=== PATIENT | female | born 1990 | race Caucasian/White ===

== ENCOUNTER 2016-04-26 16:12 | Outpatient (CLI) | payer OTHER ==
[2016-04-26] MEDS ORDERED: HYDROXYZINE PAMOATE 50 MG CAPSULE ONE (16:45)
[2016-04-26] MEDS ORDERED: OXYCODONE-ACETAMINOPHEN 5-325 MG TABLET ONE ×2 (16:45→18:01)
[2016-04-26 17:17] LABS: URINE BARBITURATES SCREEN NEGATIVE; URINE METHADONE SCREEN NEGATIVE; URINE PHENCYCLIDINE SCREEN NEGATIVE
[2016-04-26 17:29] LABS: APPEARANCE,URINE CLEAR; BILIRUBIN,URINE NEGATIVE (NEGATIVE); GLUCOSE, URINE NEGATIVE (NEGATIVE); KETONES,URINE NEGATIVE (NEGATIVE); LEUKOCYTE ESTERASE,URINE MODERATE (NEGATIVE); NITRITE,URINE NEGATIVE (NEGATIVE); PROTEIN,URINE NEGATIVE (NEGATIVE); URINE SPECIFIC GRAVITY 1.004; UROBILINOGEN,URINE NEGATIVE mg/dL (<2.0)
--- NOTE | 2016-04-27 04:46 | L&D Flow Sheet ---
LD Flowsheet Datetime Report Generated by CPN: 04/27/2016 04:45 Datetime: 04/26/2016 19:11 Communication Comments: IV discontinued, monitors removed, kick counts reviewed with patient and patient verablized understanding. (Eden Hansen, RN) Datetime: 04/26/2016 19:05 Communication Comments: Dr. Hansen notified of patient's normal US results, patient complains of pain 2/5 in RLQ. Orders received for patient to be discharged home, to take Tylenol and place heating pad on back and follow up in office later this week (Eden Tyrone, RN) Datetime: 04/26/2016 18:50 NBP Sys/Shelbi/Mean (mmHg): 82 (QS system process) : 43 (QS system process) : 57 (QS system process) Pulse: 84 (QS system process) Datetime: 04/26/2016 18:35 NBP Sys/Shelbi/Mean (mmHg): 81 (QS system process) : 46 (QS system process) : 58 (QS system process) Pulse: 82 (QS system process) Datetime: 04/26/2016 18:30 Monitor Mode: External; Palpation (Eden Tyrone, RN) Frequency (min): none (Eden Tyrone, RN) Resting Tone (Palpate): Relaxed (Eden Tyrone, RN) Monitor Mode: External US (Eden Tyrone, RN) FHR Baseline Rate : 135 (Eden Tyrone, RN) Variability: Moderate 6-25 bpm (Eden Tyorne, RN) Accelerations: 15X15 (Eden Tyrone, RN) Decelerations: None (Eden Tyrone, RN) Datetime: 04/26/2016 18:21 NBP Sys/Shelbi/Mean (mmHg): 85 (QS system process) : 50 (QS system process) : 63 (QS system process) Pulse: 80 (QS system process) Datetime: 04/26/2016 18:20 Patient Position/Activity: Left Extreme; Low Fowlers (Eden Tyrone, RN) Datetime: 04/26/2016 18:19 Communication Comments: US complete, monitors back on (Eden Hansen, RN) Datetime: 04/26/2016 18:04 Communication Comments: Percocet 5/325mg 2 tabs PO x1 now per order (Eden Hansen, RN) Datetime: 04/26/2016 18:00 Communication Comments: patient off monitor for US (Eden Hansen, RN) Communication Comments: Dr. Hansen notified of patient's pain 5/5 in RLQ. Order received for Percocet 5/325 2 tabs PO x1` now (Eden Hansen, RN) Datetime: 04/26/2016 17:54 IV/Blood Work: IV Started; IV Bolus Started (Eden Tyrone, RN) Datetime: 04/26/2016 17:51 Communication Comments: patient back in bed, monitors off for ultrasound at bedside (Eden Tyrone, RN) Datetime: 04/26/2016 17:42 Communication Comments: patient tearful, states pain is 5/5. Dr. Tyrone aware (Eden Tyrone, RN) Datetime: 04/26/2016 17:40 Communication Comments: order received for renal US and to administer 1 L LR bolus, run LR at 125mL/hr after bolus (Eden Hansen, RN) Datetime: 04/26/2016 17:38 Dilatation (cm): 0.0 (Eden Hansen, RN) Effacement (%): 0 (Eden Hansen, RN) Station: -4 (Eden Hansen, RN) Exam by: Dr. Hansen (Eden Hansen, RN) I/O Interventions: Up to BR (Eden Hansen, RN) Datetime: 04/26/2016 17:36 Communication Comments: Dr. Hansen at patient's bedside assessing patient and discussing POC (Eden Hansen, RN) Datetime: 04/26/2016 17:30 Monitor Mode: External; Palpation (Eden Tyrone, RN) Frequency (min): none (Eden Tyrone, RN) Resting Tone (Palpate): Relaxed (Eden Tyrone, RN) Monitor Mode: External US (Eden Tyrone, RN) FHR Baseline Rate : 125 (Eden Tyrone, RN) Variability: Moderate 6-25 bpm (Eden Tyrone, RN) Accelerations: 15X15 (Eden Tyrone, RN) Decelerations: None (Eden Tyrone, RN) Datetime: 04/26/2016 17:00 Monitor Mode: External; Palpation (Eden Tyrone, RN) Frequency (min): none (Eden Tyrone, RN) Resting Tone (Palpate): Relaxed (Eden Tyrone, RN) Monitor Mode: External US (Eden Tyrone, RN) FHR Baseline Rate : 125 (Eden Tyrone, RN) Variability: Moderate 6-25 bpm (Eden Tyrone, RN) Accelerations: 15X15 (Eden Tyrone, RN) Decelerations: None (Eden Hansen, RN) Datetime: 04/26/2016 16:51 Medication Comments: Vistaril 50 mg PO per order (Eden Hansen, RN) Datetime: 04/26/2016 16:49 Communication Comments: patient states pain in back is still dull and constant but no longer stabbing. Pain 3/[address] Hansen aware. (Eden Hansen RN)
--- NOTE | 2016-04-27 04:46 | L&D General Admission ---
General Admit Datetime Report Generated by CPN: 04/27/2016 04:45 INFORMATION Patient Age: 25 (04/26/2016 16:12:QS system process) EDC: 05/20/2016 00:00 (04/26/2016 16:26:Kandace Galvan RN) : 3 (04/26/2016 16:26:Kandace Galvan RN) Para: 1 (04/26/2016 19:07:Eden Hansen RN) Para: 1 (04/26/2016 16:26:Kandace Galvan RN) Livin (04/26/2016 16:26:Kandace Galvan RN) Baby, Number in Womb: 1 (04/26/2016 19:07:Eden Hansen RN) CARE Primary Photonics Engineering Technologist: [facility] (04/26/2016 16:26:Kandace Galvan RN) Prepregnancy Weight (lb): 155 (04/26/2016 16:26:Kandace Galvan RN) Prepregnancy Weight (kg): 70.5 (04/26/2016 16:26:QS system process) Height (in): 61 (04/26/2016 16:40:QS system process) Height (in): 61 (04/26/2016 16:39:QS system process) Height (in): 61 (04/26/2016 16:38:QS system process) Height (in): 61 (04/26/2016 16:26:QS system process) ALLERGIES Medication Allergy: No (04/26/2016 16:26:Eden Hansen RN) Medication Allergies: No Known Allergies (04/26/2016) (04/26/2016 16:24:QS system process) Medication Allergies: No Known Allergies (01/12/2012) (04/26/2016 16:12:QS system process) Latex Allergy: No Latex Allergies (04/26/2016 16:26:Eden Hansen RN) DEMOGRAPHICS Address: [address] [place] [address] [place] [address] (04/26/2016 16:12:QS system process) Zipcode: [phone] (04/26/2016 16:12:QS system process) Home (04/26/2016 16:12:QS system process) SSN: [id number] (04/26/2016 16:12:QS system process) Next of Kin Name: SHALONDA BRAVO (04/26/2016 16:12:QS system process) Next of Kin (04/26/2016 16:12:QS system process) Next of Kin Relationship: MO (04/26/2016 16:12:QS system process) Date of : 1990 (04/26/2016 16:12:QS system process) Marital Status: Single (04/26/2016 16:12:QS system process) Sex: Female (04/26/2016 16:12:QS system process) Race: (04/26/2016 16:12:QS system process) Ethnicity: Non- or (04/26/2016 16:12:QS system process) Caodaism: Other (04/26/2016 16:12:QS system process) DRUG AND ALCOHOL USE Alcohol: No (04/26/2016 16:26:Eden Hansen RN) Marijuana: No (04/26/2016 16:26:Eden Hansen RN) Cocaine: No (04/26/2016 16:26:Eden Hansen RN) Other Illicit Drugs: No (04/26/2016 16:26:Eden Hansen RN) Pain Management Plans: Epidural (04/26/2016 16:26:Eden Hansen RN) Plans for Labor and Delivery: None (04/26/2016 16:26:Eden Hansen RN) LABS Blood Type: A Positive (04/26/2016 16:26:Kandace Galvan RN) Antibody Screen: Negative (04/26/2016 16:26:Kandace Galvan RN) Gonorrhea: Negative (04/26/2016 16:26:Kandace Galvan RN) Chlamydia: Negative (04/26/2016 16:26:Kandace Galvan RN) RPR/VDRL: Nonreactive (04/26/2016 16:26:Kandace Galvan RN) HIV Exposure Test: Negative (04/26/2016 16:26:Kandace Galvan RN) Hepatitis B: Negative (04/26/2016 16:26:Kandace Galvan RN) Rubella: Non-Immune (04/26/2016 16:26:Kandace Galvan RN) OB/PREVIOUS HISTORY Previous Procedures: Ultrasound; NST (04/26/2016 16:26:Eden Hansen RN) Current Procedures: Ultrasound; NST (04/26/2016 16:26:Eden Hansen RN) History of Previous : No (04/26/2016 16:26:Eden Hansen RN) History of Gestational Diabetes: No (04/26/2016 16:26:Eden Hansen RN) History of PIH: No (04/26/2016 16:26:Eden Hansen RN) History of Incompetent Cervix: No (04/26/2016 16:26:Eden Hansen RN) History of Placenta Previa/Abrup: No (04/26/2016 16:26:Eden Hansen RN) History of Macrosomia: No (04/26/2016 16:26:Eden Hansen RN) History of IUGR: No (04/26/2016 16:26:Eden Hansen RN) History of Hemorrhage: No (04/26/2016 16:26:Eden Hansen RN) History of Loss/Stillborn: No (04/26/2016 16:26:Eden Hansen RN) History of : No (04/26/2016 16:26:Eden Hansen RN) History of D (Rh) Sensitization: No (04/26/2016 16:26:Eden Hansen RN) History Recurrent Loss/Stillborn: No (04/26/2016 16:26:Eden Hansen RN) History Depression/PP Depression: No (04/26/2016 16:26:Eden Hansen RN) History of Uterine Anomaly/BK: No (04/26/2016 16:26:Eden Hansen RN) History of Infertility: No (04/26/2016 16:26:Eden Hansen RN) History of ART Treatment: No (04/26/2016 16:26:Eden Hansen RN) History of BK: No (04/26/2016 16:26:Eden Hansen RN) Comments Obstetrical History: 2012 40.4 weeks G2: current (04/26/2016 16:26:Eden Hansen RN) MEDICAL HISTORY Med Hx Diabetes: No (04/26/2016 16:26:Eden Hansen RN) Med Hx Hypertension: No (04/26/2016 16:26:Eden Hansen RN) Med Hx Heart Disease: No (04/26/2016 16:26:Eden Hansen RN) Med Hx Autoimmune Disorder: No (04/26/2016 16:26:Eden Hansen RN) Med Hx Kidney Disease/UTI: No (04/26/2016 16:26:Eden Hansen RN) Med Hx Neurologic/Epilepsy: No (04/26/2016 16:26:Eden Hansen RN) Med Hx Psychiatric Disorders: No (04/26/2016 16:26:Eden Hansen RN) Med Hx Hepatitis/Liver Disease: No (04/26/2016 16:26:Eden Hansen RN) Med Hx Varicosities/Phlebitis: No (04/26/2016 16:26:Eden Hansen RN) Med Hx Thyroid Dysfunction: No (04/26/2016 16:26:Eden Hansen RN) Med Hx Trauma/Violence: No (04/26/2016 16:26:Eden Hansen RN) Med Hx Blood Transfusion: No (04/26/2016 16:26:Eden Hansen RN) Med Hx Pulmonary (Asthma,TB): No (04/26/2016 16:26:Eden Hansen RN) Med Hx Breast: No (04/26/2016 16:26:Eden Hansen RN) Med Hx G[employer] Surgery: No (04/26/2016 16:26:Eden Hansen RN) Med Hx Hospitalization/Surgery: No (04/26/2016 16:26:Eden Hansen RN) Med Hx Anesthetic Complications: No (04/26/2016 16:26:Eden Hansen RN) Med Hx Abnormal Pap Smear: No (04/26/2016 16:26:Eden Hansen RN) Other Medical Diseases: No (04/26/2016 16:26:Eden Hansen RN) Med Hx Significant Family Hx: No (04/26/2016 16:26:Eden Hansen RN) INFECTIOUS HISTORY Inf Hx Gonorrhea: No (04/26/2016 16:26:Eden Hansen RN) Inf Hx Chlamydia: No (04/26/2016 16:26:Eden Hansen RN) Inf Hx Syphilis: No (04/26/2016 16:26:Eden Hansen RN) Inf Hx HIV/AIDS: No (04/26/2016 16:26:Eden Hansen RN) Inf Hx Human Papilloma Virus: No (04/26/2016 16:26:Eden Hansen RN) Inf Hx Pt/Partner Genital Herpes: No (04/26/2016 16:26:Eden Hansen RN) Inf Hx Tuberculosis/Exposure: No (04/26/2016 16:26:Eden Hansen RN) Inf Hx Hepatitis B,C: No (04/26/2016 16:26:Eden Hansen RN) Inf Hx Rash or Viral Illness: No (04/26/2016 16:26:Eden Hansen RN) GENETIC HISTORY Gen Hx Age >=35 at TOMASZ: No (04/26/2016 16:26:Eden Hansen RN) Gen Hx Thalassemia: No (04/26/2016 16:26:Eden Hansen RN) Gen Hx Congenital Heart Defect: No (04/26/2016 16:26:Eden Hansen RN) Gen Hx Neural Tube Defect: No (04/26/2016 16:26:Eden Hansen RN) Gen Hx Down's Syndrome: No (04/26/2016 16:26:Eden Hansen RN) Gen Hx Bayron-Sachs: No (04/26/2016 16:26:Eden Hansen RN) Gen Hx Hugh: No (04/26/2016 16:26:Eden Hansen RN) Gen Hx Familial Dysautonomia: No (04/26/2016 16:26:Eden Hansen RN) Gen Hx Sickle Cell Disease/Trait: No (04/26/2016 16:26:Eden Hansen RN) Gen Hx Hemophilia/Blood Disorder: No (04/26/2016 16:26:Eden Hansen RN) Gen Hx Muscular Dystrophy: No (04/26/2016 16:26:Eden Hansen RN) Gen Hx Cystic Fibrosis: No (04/26/2016 16:26:Eden Hansen RN) Gen Hx Huntingtons Chorea: No (04/26/2016 16:26:Eden Hansen RN) Gen Hx Mental Retardation/Autism: No (04/26/2016 16:26:Eden Hansen RN) Gen Hx Tested for Fragile X: No (04/26/2016 16:26:Eden Hansen RN) Gen Hx Other Inher/Chromosomal: No (04/26/2016 16:26:Eden Hansen RN) Gen Hx Maternal Metabolic DO: No (04/26/2016 16:26:Eden Hansen RN) Gen Hx Pt Father or FOB Defect: No (04/26/2016 16:26:Eden Hansen RN) Gen Hx Other Genetic History: No (04/26/2016 16:26:Eden Hansen RN) Gen Hx Drugs/Meds since LMP: No (04/26/2016 16:26:Eden Hansen RN)
--- NOTE | 2016-04-27 04:46 | Antepartum Discharge Summary ---
Antepartum DC Datetime Report Generated by CPN: 04/27/2016 04:45 DIET/ACTIVITY/RESTRICTIONS Diet: Regular (04/26/2016 19:07:Eden Hansen RN) Activity: Normal Activity (04/26/2016 19:07:Eden Hansen, RN) TEACHING/INSTRUCTIONS/REFERRALS Instructions Given To: patient and patient's (04/26/2016 19:07:Eden Hansen RN) Instructions Understood: Patient Verbalized Understanding; Support Person Verbalized Understanding (04/26/2016 19:07:Eden Hansen RN) DISCHARGE INFORMATION Discharged AMA: No (04/26/2016 19:07:Eden Hansen RN) Discharge Date/Time: 04/26/2016 19:07 (04/26/2016 19:07:Eden Hansen RN) Discharged To: Home (04/26/2016 19:07:Eden Hansen RN) Discharge Provider Name: Dr. Hansen (04/26/2016 19:07:Eden Hansen RN) Accompanied By: (04/26/2016 19:07:Eden Hansen RN) Discharge Method: Ambulatory (04/26/2016 19:07:Eden Hanesn RN) Condition: Stable (04/26/2016 19:07:Eden Hansen RN) FOLLOW UP INFORMATION Follow Up With: [facility] (04/26/2016 19:07:Eden Hansen RN) Follow Up On: As Scheduled (04/26/2016 19:07:Eden Hansen RN) Follow Up Phone Number: [facility] - (04/26/2016 19:07:Eden Hansen RN) GENERAL INSTR-CALL PROVIDER IF: Contractions: Contractions or cramps become more frequent than 8 in one hour or 4 in 20 minutes; Regular painful contractions every 5 minutes or less for one hour. Time your contractions from the beginning of one to the beginning of the next (04/26/2016 19:07:Eden Hansen RN) Pressure: Pressure in your vagina or lower abdomen that may feel like the baby is pushing down (04/26/2016 19:07:Eden Hansen RN) Period Like Cramps: Period-like cramps or low dull backache that may come and go (04/26/2016 19:07:Eden Hansen RN) Cramps/Diarrhea: Abdominal cramps that may be accompanied by diarrhea (04/26/2016 19:07:Eden Hansen RN) Gush of Fluid/Blood: Gush of fluid or blood from your vagina (it is normal to have spotting after vaginal exam or intercourse) (04/26/2016 19:07:Eden Hansen RN) Vaginal Discharge: Change in the type or amount of vaginal discharge (04/26/2016 19:07:Eden Hansen RN) Decreased Movement: Your baby is not moving as much as usual- 4 movements in 1 hour after drinking and resting on side (04/26/2016 19:07:Eden Hansen RN) Temperature: Temperature greater than 100.0(F) orally (04/26/2016 19:07:Eden Hansen RN) Hypertension Signs/Symptoms: Severe headache which is not relieved 30 minutes after taking Tylenol(Acetaminophen); Blurry vision or spots before your eyes; Severe heartburn or pain on the upper right side of your abdomen that is not relieved by an antacid; Increased swelling in your face, hands or feet (04/26/2016 19:07:Eden Hansen RN) Urinary Output: Decreased urinary output or dark colored urine (04/26/2016 19:07:Eden Hansen RN)
--- NOTE | 2016-04-27 04:46 | L&D Current Admission ---
Current Admit Datetime Report Generated by CPN: 04/27/2016 04:45 ADMISSION INFORMATION Chief Complaint: sharp lower constant abdominal pain only on right side (04/26/2016 16:30:Eden Hansen RN)
--- NOTE | 2016-04-27 04:46 | L&D Discharge Summary ---
OB Discharge Summary Datetime Report Generated by CPN: 04/27/2016 04:45 DISCHARGE DIAGNOSIS Diagnosis/Symptoms: Back Pain Diagnoses/Symptoms Other: IUP at 36.4, lower abdominal pain/back pain, not in labor Gestation: 36.4 Number of Babies in Womb: 1 Parity: 1 DIET/ACTIVITY/RESTRICTIONS Diet: Regular Activity: Normal Activity TEACHING/INSTRUCTIONS/REFERRALS Instructions Given To: patient and patient's Instructions Understood: Patient Verbalized Understanding; Support Person Verbalized Understanding DISCHARGE INFORMATION Discharged AMA: No Discharge Date/Time: 04/26/2016 19:07 Discharged To: Home Discharge Provider Name: Dr. Tyrone Accompanied By: Discharge Method: Ambulatory Condition: Stable FOLLOW UP INFORMATION Follow Up With: [facility] Follow Up On: As Scheduled Follow Up Phone Number: [facility] - GENERAL INSTR-CALL PROVIDER IF: Contractions: Contractions or cramps become more frequent than 8 in one hour or 4 in 20 minutes; Regular painful contractions every 5 minutes or less for one hour. Time your contractions from the beginning of one to the beginning of the next Pressure: Pressure in your vagina or lower abdomen that may feel like the baby is pushing down Period Like Cramps: Period-like cramps or low dull backache that may come and go Cramps/Diarrhea: Abdominal cramps that may be accompanied by diarrhea Gush of Fluid/Blood: Gush of fluid or blood from your vagina (it is normal to have spotting after vaginal exam or intercourse) Vaginal Discharge: Change in the type or amount of vaginal discharge Decreased Movement: Your baby is not moving as much as usual- 4 movements in 1 hour after drinking and resting on side Temperature: Temperature greater than 100.0(F) orally
--- NOTE | 2016-04-27 04:46 | L&D Admission Assessment ---
LD ADM ASMT Datetime Report Generated by CPN: 04/27/2016 04:45 PATIENT ASSESSMENT Assessment Type: Admission Assessment (04/26/2016 16:30:Eden Hansen RN) WEIGHT Weight (lb): 180 (04/26/2016 16:40:QS system process) Weight (lb): 180 (04/26/2016 16:39:QS system process) Weight (lb): 180 (04/26/2016 16:38:QS system process) Weight (lb): 180 (04/26/2016 16:26:QS system process) Weight (kg): 81.8 (04/26/2016 16:40:QS system process) Weight (kg): 81.8 (04/26/2016 16:39:QS system process) Weight (kg): 81.8 (04/26/2016 16:38:QS system process) Weight (kg): 81.8 (04/26/2016 16:26:QS system process) Total Wt Gain (lb): 25 (04/26/2016 16:40:QS system process) Total Wt Gain (lb): 25 (04/26/2016 16:39:QS system process) Total Wt Gain (lb): 25 (04/26/2016 16:38:QS system process) Total Wt Gain (lb): 25 (04/26/2016 16:26:QS system process) Wt Gain (kg): 11.5 (04/26/2016 16:40:QS system process) Wt Gain (kg): 11.5 (04/26/2016 16:39:QS system process) Wt Gain (kg): 11.5 (04/26/2016 16:38:QS system process) Wt Gain (kg): 11.5 (04/26/2016 16:26:QS system process) BMI: 34.0 (04/26/2016 16:40:QS system process) BMI: 34.0 (04/26/2016 16:39:QS system process) BMI: 34.0 (04/26/2016 16:38:QS system process) PAIN Pain Scale: 4 (04/26/2016 16:30:Eden Hansen RN) Pain Presence: Constant (04/26/2016 16:30:Eden Hansen RN) Pain Type: Sharp (04/26/2016 16:30:Eden Hansen RN) Pain Location: Abdomen (04/26/2016 16:30:Eden Hansen RN) Pain Goal: 1 (04/26/2016 16:30:Eden Hansen RN) Pain Related to Contraction: No (04/26/2016 16:30:Eden Hansen RN) CONTRACTIONS Frequency (min): none (04/26/2016 18:30:Eden Hansen RN) Frequency (min): none (04/26/2016 17:30:Eden Hansen RN) Frequency (min): none (04/26/2016 17:00:Eden Hansen RN) Resting Tone [place]: Relaxed (04/26/2016 18:30:Eden Hansen RN) Resting Tone [place]: Relaxed (04/26/2016 17:30:Eden Hansen RN) Resting Tone [place]: Relaxed (04/26/2016 17:00:Eden Hansen RN) VAGINAL EXAM Dilatation (cm): 0.0 (04/26/2016 17:38:Eden Hansen RN) Effacement (%): 0 (04/26/2016 17:38:Eden Hansen RN) Station: -4 (04/26/2016 17:38:Eden Hansen RN) Membranes Status: Intact (Annotations: intact per patient) (04/26/2016 16:30:Eden Hansen RN) NEURO Level of Consciousness: Fully Conscious (04/26/2016 16:30:Eden Hansen RN) DTR's/Clonus: DTRs 2+; No Clonus (04/26/2016 16:30:Eden Hansen RN) Headache: Denies (04/26/2016 16:30:Eden Hansen RN) Dizziness: No (04/26/2016 16:30:Eden Hansen RN) Blurred Vision: No (04/26/2016 16:30:Eden Hansen RN) Extremity Numbness/Tingling : None (04/26/2016 16:30:Eden Hansen RN) Extremity Movement: Full Range of Motion (04/26/2016 16:30:Eden Hansen RN) CARDIOVASCULAR Heart Rhythm: Regular (04/26/2016 16:30:Eden Hansen RN) Nailbeds: [place] (04/26/2016 16:30:Eden Hansen RN) Capillary Refill: Less than 3 Seconds (04/26/2016 16:30:Eden Hansen RN) Lower Extremities Edema: None (04/26/2016 16:30:Eden Hansen RN) Lower Extremities Edema Degree: None (04/26/2016 16:30:Eden Hansen RN) Upper Extremities Edema: None (04/26/2016 16:30:Eden Hansen RN) Upper Extremities Edema Degree: None (04/26/2016 16:30:Eden Hansen RN) Facial Edema: None (04/26/2016 16:30:Eden Hansen RN) Corbin's Sign Left Leg: Negative (04/26/2016 16:30:Eden Hansen RN) Corbin's Sign Right Leg: Negative (04/26/2016 16:30:Eden Hansen RN) DVT RISK ASSESSMENT DVT Risk Age: Age less than 41 years (04/26/2016 16:30:Eden Hansen RN) DVT Risk BMI: BMI<31 (04/26/2016 16:30:Eden Hansen RN) DVT Risk Surgery: None Applicable (04/26/2016 16:30:Eden Hansen RN) DVT Risk Other: Women Only- or (<1 month) (04/26/2016 16:30:Eden Hansen RN) DVT Risk Total: 1 (04/26/2016 16:30:QS system process) DVT Risk Text: Low Risk (<10%) No specific measures, early ambulation (04/26/2016 16:30:QS system process) RESPIRATORY Respiratory Effort: Unlabored; Regular Rhythm; Equal Expansion (04/26/2016 16:30:Eden Hansen RN) Breath Sounds, Left: Clear and Equal (04/26/2016 16:30:Eden Hansen RN) Breath Sounds, Right: Clear and Equal (04/26/2016 16:30:Eden Hansen RN) Cough Productivity: None (04/26/2016 16:30:Eden Hansen RN) GASTROINTESTINAL Nausea/Vomiting: Denies (04/26/2016 16:30:Eden Hansen RN) Bowel Sounds: Normoactive (04/26/2016 16:30:Eden Hansen RN) RUQ Epigastric Pain: Denies (04/26/2016 16:30:Eden Hansen RN) Bowel Patterns: Soft, Formed Stool (04/26/2016 16:30:Eden Hansen RN) Hemorrhoids: None (04/26/2016 16:30:Eden Hansen RN) Diet Type: Regular diet (04/26/2016 16:30:Eden Hansen RN) Last Meal: 04/26/2016 15:00 (04/26/2016 16:30:Eden Hansen RN) GENITOURINARY Bladder: Nondistended (04/26/2016 16:30:Eden Hansen RN) Frequency of Urination: No (04/26/2016 16:30:Eden Hansen RN) Urination Burning: No (04/26/2016 16:30:Eden Hansen RN) CVA Tenderness: No (04/26/2016 16:30:Eden Hansen RN) Vaginal Bleeding: None (04/26/2016 16:30:Eden Hansen RN) Vaginal Discharge Amount: None (04/26/2016 16:30:Eden Hansen RN) Vaginal Discharge Color: N/A (04/26/2016 16:30:Eden Hansen RN) Vaginal Discharge Character: None (04/26/2016 16:30:Eden Hansen RN) INTEGUMENTARY Skin Color: Normal for Race (04/26/2016 16:30:Eden Hansen RN) Skin Temperature: Warm (04/26/2016 16:30:Eden Hansen RN) Skin Moisture: Dry (04/26/2016 16:30:Eden Hansen RN) PAVAN SKIN ASSESSMENT Pavan Scale Sensory Perception: No Impairment- Responds to verbal commands. Has no sensory deficit which would limit ability to feel or voice pain or discomfort (04/26/2016 16:30:Eden Hansen RN) [place]avan Scale Moisture: Rarely Moist- Skin is usually dry. Linen only requires changing at routine intervals (04/26/2016 16:30:Eden Hansen RN) Pavan Scale Activity: Walks Frequently- Walks outside the room at least twice a day and inside room at least every 2 hours during the day. (04/26/2016 16:30:Eden Hansen RN) Pavan Scale Mobility: No Limitations- Makes major and frequent changes in position without assistance (04/26/2016 16:30:Eden Hansen RN) Pavan Scale Nutrition: Excellent- Eats most of every meal. Never refuses a meal. Usually eats a total of 4 or more servings of meat and dairy products. Occasionally eats between meals. Does not require supplementation (04/26/2016 16:30:Eden Hansen RN) Pavan Scale Friction and Shear: No Apparent Problem- Moves in bed and in chair independently and has sufficient muscle strength to lift up completely during move. Maintains good position in bed or chair at all times (04/26/2016 16:30:Eden Hansen RN) Pavan Scale Total: 23 (04/26/2016 16:30:QS system process) Pavan Scale Risk: No Risk of Pressure Ulcer Noted at this Time (04/26/2016 16:30:QS system process) SUPPORT Family Support: Significant Other supportive, at bedside frequently (04/26/2016 16:30:Eden Hansen, RN) Emotional State: Crying (04/26/2016 16:30:Eden Hansen, RN) SAFETY Call [place] Within Reach: Yes (04/26/2016 16:30:Eden Hansen RN) Side Rails Up: Yes (04/26/2016 16:30:Eden Hansen RN) Bed Wheels Locked: Yes (04/26/2016 16:30:Eden Hansen RN) Arm Bands Present: Yes (04/26/2016 16:30:Eden Hansen RN) Isolation: [place] (04/26/2016 16:30:Eden Hansen RN) FALL SCREEN Fall Risk History of Falling: (0) No (04/26/2016 16:30:Eden Hansen RN) Fall Risk Secondary Diagnosis: (0) No (04/26/2016 16:30:Eden Hansen RN) Fall Risk Ambulatory Aid: (0) None/Bedrest/Wheelchair/Nurse Assist (04/26/2016 16:30:Eden Hansen RN) Fall Risk IV Therapy: (0) No (04/26/2016 16:30:Eden Hansen RN) Fall Risk Gait: (0) Normal/Bedrest/Immobile (04/26/2016 16:30:Eden Hansen RN) Fall Risk Mental Status: (0) Oriented to Own Ability (04/26/2016 16:30:Eden Hansen RN) Fall Risk Score: 0 (04/26/2016 16:30:QS system process) Fall Risk Score Definition: No Risk: No action required (04/26/2016 16:30:QS system process) RECENT TRAVEL/INFECTIOUS DISEASE Recent Exp Communicable Disease: No (04/26/2016 16:30:Eden Hansen RN) Cough or Fever: No (04/26/2016 16:30:Eden Hansen RN) Foreign Travel Past 10 Days: No (04/26/2016 16:30:Eden Hansen RN) Open Wounds or Sores: No (04/26/2016 16:30:Eden Hansen RN) Prior Antibiotic Resistance Tx: No (04/26/2016 16:30:Eden Hansen RN) Cultures Obtained: Not Applicable (04/26/2016 16:30:Eden Hansen RN) Isolation Initiated: No (04/26/2016 16:30:Eden Hansen RN) Pt/Family Education: Handwashing Hygiene (04/26/2016 16:30:Eden Hansen RN) BABY A FHR Baseline Rate (bpm) Baby A: 135 (04/26/2016 18:30:Eden Hansen RN) FHR Baseline Rate (bpm) Baby A: 125 (04/26/2016 17:30:Eden Hansen RN) FHR Baseline Rate (bpm) Baby A: 125 (04/26/2016 17:00:Eden Hansen RN) Variability Baby A: Moderate 6-25 bpm (04/26/2016 18:30:Eden Hansen RN) Variability Baby A: Moderate 6-25 bpm (04/26/2016 17:30:Eden Hansen RN) Variability Baby A: Moderate 6-25 bpm (04/26/2016 17:00:Eden Hansen RN) Accelerations Baby A: 15X15 (04/26/2016 18:30:Eden Hansen RN) Accelerations Baby A: 15X15 (04/26/2016 17:30:Eden Hansen RN) Accelerations Baby A: 15X15 (04/26/2016 17:00:Eden Hansen RN) Decelerations Baby A: None (04/26/2016 18:30:Eden Hansen RN) Decelerations Baby A: None (04/26/2016 17:30:Eden Hansen RN) Decelerations Baby A: None (04/26/2016 17:00:Eden Hansen RN) ADDITIONAL COMMENTS Assessment Flag: Admission Assessment (04/26/2016 16:30:QS system process)
--- NOTE | 2016-04-27 12:38 | Non Stress Test Report ---
Non Stress Test Datetime Report Generated by CPN: 04/27/2016 12:38 DEMOGRAPHIC EGA NST: 36.4 INDICATION Indication for Study: Other Indication for Study (NST) Other: lc for lower abdominal pain MONITORING Monitor Explained: Monitor Explained; Test Explained; Patient Verbalized Understanding Time on Monitor: 04/26/2016 17:00 Time off Monitor: 04/26/2016 19:00 NST Duration: 120 NST INTERVENTIONS NST Interventions: PO Hydration; IV Fluids; Reposition Patient Physician Notified NST: Dr Tyrone BABY A: [id number] BABY A Movement : Present Contraction Frequency : 0 FHR Baseline : 120 Accelerations : 15X15 Decelerations : None Variability : Moderate 6-25bpm NST Review: Meets Criteria for Reactive NST NST Results: Reactive NST REPORT Report Trigger: Send Report
--- NOTE | 2016-04-28 06:16 | L&D Current Admission ---
Current Admit Datetime Report Generated by CPN: 04/28/2016 06:00 ADMISSION INFORMATION Chief Complaint: sharp lower constant abdominal pain only on right side (04/26/2016 16:30:Eden Hansen RN)
--- NOTE | 2016-04-28 06:16 | L&D General Admission ---
General Admit Datetime Report Generated by CPN: 04/28/2016 06:00 INFORMATION Patient Age: 25 (04/26/2016 16:12:QS system process) EDC: 05/20/2016 00:00 (04/26/2016 16:26:Kandace Galvan RN) : 3 (04/26/2016 16:26:Kandace Galvan RN) Para: 1 (04/26/2016 19:07:Eden Hansen RN) Livin (04/26/2016 16:26:Kandace Galvan RN) Baby, Number in Womb: 1 (04/26/2016 19:07:Eden Hansen RN) CARE Primary Public Address Systems Mechanic: [facility] (04/26/2016 16:26:Kandace Galvan RN) Prepregnancy Weight (lb): 155 (04/26/2016 16:26:Kandace Galvan RN) Prepregnancy Weight (kg): 70.5 (04/26/2016 16:26:QS system process) Height (in): 61 (04/26/2016 16:40:QS system process) ALLERGIES Medication Allergy: No (04/26/2016 16:26:Eden Hansen RN) Medication Allergies: No Known Allergies (04/26/2016) (04/26/2016 16:24:QS system process) Latex Allergy: No Latex Allergies (04/26/2016 16:26:Eden Hansen RN) DEMOGRAPHICS Address: [address] [place] [address] [place] [address] (04/26/2016 16:12:QS system process) Zipcode: [phone] (04/26/2016 16:12:QS system process) Home (04/26/2016 16:12:QS system process) SSN: [id number] (04/26/2016 16:12:QS system process) Next of Kin Name: SHALONDA BRAVO (04/26/2016 16:12:QS system process) Next of Kin (04/26/2016 16:12:QS system process) Next of Kin Relationship: [place] (04/26/2016 16:12:QS system process) Date of : 1990 (04/26/2016 16:12:QS system process) Marital Status: Single (04/26/2016 16:12:QS system process) Sex: Female (04/26/2016 16:12:QS system process) Race: (04/26/2016 16:12:QS system process) Ethnicity: Non- or (04/26/2016 16:12:QS system process) Congregation: Other (04/26/2016 16:12:QS system process) DRUG AND ALCOHOL USE Alcohol: No (04/26/2016 16:26:Eden Hansen RN) Marijuana: No (04/26/2016 16:26:Eden Hansen RN) Cocaine: No (04/26/2016 16:26:Eden Hansen RN) Other Illicit Drugs: No (04/26/2016 16:26:Eden Hansen RN) Pain Management Plans: Epidural (04/26/2016 16:26:Eden Hansen RN) Plans for Labor and Delivery: None (04/26/2016 16:26:Eden Hansen RN) LABS Blood Type: A Positive (04/26/2016 16:26:Kandace Galvan RN) Antibody Screen: Negative (04/26/2016 16:26:Kandace Galvan RN) Gonorrhea: Negative (04/26/2016 16:26:Kandace Galvan RN) Chlamydia: Negative (04/26/2016 16:26:Kandace Galvan RN) RPR/VDRL: Nonreactive (04/26/2016 16:26:Kandace Galvan RN) HIV Exposure Test: Negative (04/26/2016 16:26:Kandace Galvan RN) Hepatitis B: Negative (04/26/2016 16:26:Kandace Galvan RN) Rubella: Non-Immune (04/26/2016 16:26:Kandace Galvan RN) OB/PREVIOUS HISTORY Previous Procedures: Ultrasound; NST (04/26/2016 16:26:Eden Hansen RN) Current Procedures: Ultrasound; NST (04/26/2016 16:26:Eden Hansen RN) History of Previous : No (04/26/2016 16:26:Eden Hansen RN) History of Gestational Diabetes: No (04/26/2016 16:26:Eden Hansen RN) History of PIH: No (04/26/2016 16:26:Eden Hansen RN) History of Incompetent Cervix: No (04/26/2016 16:26:Eden Hansen RN) History of Placenta Previa/Abrup: No (04/26/2016 16:26:Eden Hansen RN) History of Macrosomia: No (04/26/2016 16:26:Eden Hansen RN) History of IUGR: No (04/26/2016 16:26:Eden Hansen RN) History of Hemorrhage: No (04/26/2016 16:26:Eden Hansen RN) History of Loss/Stillborn: No (04/26/2016 16:26:Eden Hansen RN) History of : No (04/26/2016 16:26:Eden Hansen RN) History of D (Rh) Sensitization: No (04/26/2016 16:26:Eden Hansen RN) History Recurrent Loss/Stillborn: No (04/26/2016 16:26:Eden Hansen RN) History Depression/PP Depression: No (04/26/2016 16:26:Eden Hansen RN) History of Uterine Anomaly/BK: No (04/26/2016 16:26:Eden Hansen RN) History of Infertility: No (04/26/2016 16:26:Eden Hansen RN) History of ART Treatment: No (04/26/2016 16:26:Eden Hansen RN) History of BK: No (04/26/2016 16:26:Eden Hansen RN) Comments Obstetrical History: 2012 40.4 weeks G2: current (04/26/2016 16:26:Eden Hansen RN) MEDICAL HISTORY Med Hx Diabetes: No (04/26/2016 16:26:Eden Hansen RN) Med Hx Hypertension: No (04/26/2016 16:26:Eden Hansen RN) Med Hx Heart Disease: No (04/26/2016 16:26:Eden Hansen RN) Med Hx Autoimmune Disorder: No (04/26/2016 16:26:Eden Hansen RN) Med Hx Kidney Disease/UTI: No (04/26/2016 16:26:Eden Hansen RN) Med Hx Neurologic/Epilepsy: No (04/26/2016 16:26:Eden Hansen RN) Med Hx Psychiatric Disorders: No (04/26/2016 16:26:Eden Hansen RN) Med Hx Hepatitis/Liver Disease: No (04/26/2016 16:26:Eden Hansen RN) Med Hx Varicosities/Phlebitis: No (04/26/2016 16:26:Eden Hansen RN) Med Hx Thyroid Dysfunction: No (04/26/2016 16:26:Eden Hansen RN) Med Hx Trauma/Violence: No (04/26/2016 16:26:Eden Hansen RN) Med Hx Blood Transfusion: No (04/26/2016 16:26:Eden Hansen RN) Med Hx Pulmonary (Asthma,TB): No (04/26/2016 16:26:Eden Hansen RN) Med Hx Breast: No (04/26/2016 16:26:Eden Hansen RN) 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 (04/26/2016 16:26:Eden Hansen RN) Med Hx Hospitalization/Surgery: No (04/26/2016 16:26:Eden Hansen RN) Med Hx Anesthetic Complications: No (04/26/2016 16:26:Eden Hansen RN) Med Hx Abnormal Pap Smear: No (04/26/2016 16:26:Eden Hansen RN) Other Medical Diseases: No (04/26/2016 16:26:Eden Hansen RN) Med Hx Significant Family Hx: No (04/26/2016 16:26:Eden Hansen RN) INFECTIOUS HISTORY Inf Hx Gonorrhea: No (04/26/2016 16:26:Eden Hansen RN) Inf Hx Chlamydia: No (04/26/2016 16:26:Eden Hansen RN) Inf Hx Syphilis: No (04/26/2016 16:26:Eden Hansen RN) Inf Hx HIV/AIDS: No (04/26/2016 16:26:Eden Hansen RN) Inf Hx Human Papilloma Virus: No (04/26/2016 16:26:Eden Hansen RN) Inf Hx Pt/Partner Genital Herpes: No (04/26/2016 16:26:Eden Hansen RN) Inf Hx Tuberculosis/Exposure: No (04/26/2016 16:26:Eden Hansen RN) Inf Hx Hepatitis B,C: No (04/26/2016 16:26:Eden Hansen RN) Inf Hx Rash or Viral Illness: No (04/26/2016 16:26:Eden Hansen RN) GENETIC HISTORY Gen Hx Age >=35 at TOMASZ: No (04/26/2016 16:26:Eden Hansen RN) Gen Hx Thalassemia: No (04/26/2016 16:26:Eden Hansen RN) Gen Hx Congenital Heart Defect: No (04/26/2016 16:26:Eden Hansen RN) Gen Hx Neural Tube Defect: No (04/26/2016 16:26:Eden Hansen RN) Gen Hx Down's Syndrome: No (04/26/2016 16:26:Eden Hansen RN) Gen Hx Bayron-Sachs: No (04/26/2016 16:26:Eden Hansen RN) Gen Hx Hugh: No (04/26/2016 16:26:Eden Hansen RN) Gen Hx Familial Dysautonomia: No (04/26/2016 16:26:Eden Hansen RN) Gen Hx Sickle Cell Disease/Trait: No (04/26/2016 16:26:Eden Hansen RN) Gen Hx Hemophilia/Blood Disorder: No (04/26/2016 16:26:Eden Hansen RN) Gen Hx Muscular Dystrophy: No (04/26/2016 16:26:Eden Hansen RN) Gen Hx Cystic Fibrosis: No (04/26/2016 16:26:Eden Hansen RN) Gen Hx [place] Chorea: No (04/26/2016 16:26:Eden Hansen RN) Gen Hx Mental Retardation/Autism: No (04/26/2016 16:26:Eden Hansen RN) Gen Hx Tested for Fragile X: No (04/26/2016 16:26:Eden Hansen RN) Gen Hx Other Inher/Chromosomal: No (04/26/2016 16:26:Eden Hansen RN) Gen Hx Maternal Metabolic DO: No (04/26/2016 16:26:Eden Hansen RN) Gen Hx Pt Father or FOB Defect: No (04/26/2016 16:26:Eden Hansen RN) Gen Hx Other Genetic History: No (04/26/2016 16:26:Eden Hansen RN) Gen Hx Drugs/Meds since LMP: No (04/26/2016 16:26:Eden Hansen RN)
--- NOTE | 2016-04-29 06:15 | L&D Current Admission ---
Current Admit Datetime Report Generated by CPN: 04/29/2016 06:00 ADMISSION INFORMATION Chief Complaint: sharp lower constant abdominal pain only on right side (04/26/2016 16:30:Eden Hansen RN)
--- NOTE | 2016-04-29 06:15 | L&D General Admission ---
General Admit Datetime Report Generated by CPN: 04/29/2016 06:00 INFORMATION Patient Age: 25 (04/26/2016 16:12:QS system process) EDC: 05/20/2016 00:00 (04/26/2016 16:26:Kandace Galvan RN) : 3 (04/26/2016 16:26:Kandace Galvan RN) Para: 1 (04/26/2016 19:07:Eden Hansen RN) Livin (04/26/2016 16:26:Kandcae Galvan RN) Baby, Number in Womb: 1 (04/26/2016 19:07:Eden Hansen RN) CARE Primary [place] Diver: [facility] (04/26/2016 16:26:Kandace Galvan RN) Prepregnancy Weight (lb): 155 (04/26/2016 16:26:Kandace Galvan RN) Prepregnancy Weight (kg): 70.5 (04/26/2016 16:26:QS system process) Height (in): 61 (04/26/2016 16:40:QS system process) ALLERGIES Medication Allergy: No (04/26/2016 16:26:Eden Hansen RN) Medication Allergies: No Known Allergies (04/26/2016) (04/26/2016 16:24:QS system process) Latex Allergy: No Latex Allergies (04/26/2016 16:26:Eden Hansen RN) DEMOGRAPHICS Address: [address] [place] [address] [place] [address] (04/26/2016 16:12:QS system process) Zipcode: [phone] (04/26/2016 16:12:QS system process) Home (04/26/2016 16:12:QS system process) SSN: [id number] (04/26/2016 16:12:QS system process) Next of Kin Name: SHALONDA BRAVO (04/26/2016 16:12:QS system process) Next of Kin (04/26/2016 16:12:QS system process) Next of Kin Relationship: MO (04/26/2016 16:12:QS system process) Date of : 1990 (04/26/2016 16:12:QS system process) Marital Status: Single (04/26/2016 16:12:QS system process) Sex: Female (04/26/2016 16:12:QS system process) Race: (04/26/2016 16:12:QS system process) Ethnicity: Non- or (04/26/2016 16:12:QS system process) Sikh: Other (04/26/2016 16:12:QS system process) DRUG AND ALCOHOL USE Alcohol: No (04/26/2016 16:26:Eden Hansen RN) Marijuana: No (04/26/2016 16:26:Eden Hansen RN) Cocaine: No (04/26/2016 16:26:Eden Hansen RN) Other Illicit Drugs: No (04/26/2016 16:26:Eden Hansen RN) Pain Management Plans: Epidural (04/26/2016 16:26:Eden Hansen RN) Plans for Labor and Delivery: None (04/26/2016 16:26:Eden Hansen RN) LABS Blood Type: A Positive (04/26/2016 16:26:Kandace Galvan RN) Antibody Screen: Negative (04/26/2016 16:26:Kandace Galvan RN) Gonorrhea: Negative (04/26/2016 16:26:Kandace Galvan RN) Chlamydia: Negative (04/26/2016 16:26:Kandace Galvan RN) RPR/VDRL: Nonreactive (04/26/2016 16:26:Kandace Galvan RN) HIV Exposure Test: Negative (04/26/2016 16:26:Kandace Galvan RN) Hepatitis B: Negative (04/26/2016 16:26:Kandace Galvan RN) Rubella: Non-Immune (04/26/2016 16:26:Kandace Galvan RN) OB/PREVIOUS HISTORY Previous Procedures: Ultrasound; NST (04/26/2016 16:26:Eden Hansen RN) Current Procedures: Ultrasound; NST (04/26/2016 16:26:Eden Hansen RN) History of Previous : No (04/26/2016 16:26:Eden Hansen RN) History of Gestational Diabetes: No (04/26/2016 16:26:Eden Hansen RN) History of PIH: No (04/26/2016 16:26:Eden Hansen RN) History of Incompetent Cervix: No (04/26/2016 16:26:Eden Hansen RN) History of Placenta Previa/Abrup: No (04/26/2016 16:26:Eden Hansen RN) History of Macrosomia: No (04/26/2016 16:26:Eden Hansen RN) History of IUGR: No (04/26/2016 16:26:Eden Hansen RN) History of Hemorrhage: No (04/26/2016 16:26:Eden Hansen RN) History of Loss/Stillborn: No (04/26/2016 16:26:Eden Hansen RN) History of : No (04/26/2016 16:26:Eden Hansen RN) History of D (Rh) Sensitization: No (04/26/2016 16:26:Eden Hansen RN) History Recurrent Loss/Stillborn: No (04/26/2016 16:26:Eedn Hansen RN) History Depression/PP Depression: No (04/26/2016 16:26:Eden Hansen RN) History of Uterine Anomaly/BK: No (04/26/2016 16:26:Eden Hansen RN) History of Infertility: No (04/26/2016 16:26:Eden Hansen RN) History of ART Treatment: No (04/26/2016 16:26:Eden Hansen RN) History of BK: No (04/26/2016 16:26:Eden Hansen RN) Comments Obstetrical History: 2012 40.4 weeks G2: current (04/26/2016 16:26:Eden Hansen RN) MEDICAL HISTORY Med Hx Diabetes: No (04/26/2016 16:26:Eden Hansen RN) Med Hx Hypertension: No (04/26/2016 16:26:Eden Hansen RN) Med Hx Heart Disease: No (04/26/2016 16:26:Eden Hansen RN) Med Hx Autoimmune Disorder: No (04/26/2016 16:26:Eden Hansen RN) Med Hx Kidney Disease/UTI: No (04/26/2016 16:26:Eden Hansen RN) Med Hx Neurologic/Epilepsy: No (04/26/2016 16:26:Eden Hansen RN) Med Hx Psychiatric Disorders: No (04/26/2016 16:26:Eden Hansen RN) Med Hx Hepatitis/Liver Disease: No (04/26/2016 16:26:Eden Hansen RN) Med Hx Varicosities/Phlebitis: No (04/26/2016 16:26:Eden Hansen RN) Med Hx Thyroid Dysfunction: No (04/26/2016 16:26:Eden Hansen RN) Med Hx Trauma/Violence: No (04/26/2016 16:26:Eden Hansen RN) Med Hx Blood Transfusion: No (04/26/2016 16:26:Eden Hansen RN) Med Hx Pulmonary (Asthma,TB): No (04/26/2016 16:26:Eden Hansen RN) Med Hx Breast: No (04/26/2016 16:26:Eden Hansen RN) Med Hx MINING SPECULATOR Surgery: No (04/26/2016 16:26:Eden Hansen RN) Med Hx Hospitalization/Surgery: No (04/26/2016 16:26:Eden Hansen RN) Med Hx Anesthetic Complications: No (04/26/2016 16:26:Eden Hansen RN) Med Hx Abnormal Pap Smear: No (04/26/2016 16:26:Eden Hansen RN) Other Medical Diseases: No (04/26/2016 16:26:Eden Hansen RN) Med Hx Significant Family Hx: No (04/26/2016 16:26:Eden Hansen RN) INFECTIOUS HISTORY Inf Hx Gonorrhea: No (04/26/2016 16:26:Eden Hansen RN) Inf Hx Chlamydia: No (04/26/2016 16:26:Eden Hansen RN) Inf Hx Syphilis: No (04/26/2016 16:26:Eden Hansen RN) Inf Hx HIV/AIDS: No (04/26/2016 16:26:Eden Hansen RN) Inf Hx Human Papilloma Virus: No (04/26/2016 16:26:Eden Hansen RN) Inf Hx Pt/Partner Genital Herpes: No (04/26/2016 16:26:Eden Hansen RN) Inf Hx Tuberculosis/Exposure: No (04/26/2016 16:26:Eden Hansen RN) Inf Hx Hepatitis B,C: No (04/26/2016 16:26:Eden Hansen RN) Inf Hx Rash or Viral Illness: No (04/26/2016 16:26:Eden Hansen RN) GENETIC HISTORY Gen Hx Age >=35 at TOMASZ: No (04/26/2016 16:26:Eden Hansen RN) Gen Hx Thalassemia: No (04/26/2016 16:26:Eden Hansen RN) Gen Hx Congenital Heart Defect: No (04/26/2016 16:26:Eden Hansen RN) Gen Hx Neural Tube Defect: No (04/26/2016 16:26:Eden Hansen RN) Gen Hx Down's Syndrome: No (04/26/2016 16:26:Eden Hansen RN) Gen Hx Bayron-Sachs: No (04/26/2016 16:26:Eden Hansen RN) Gen Hx Hugh: No (04/26/2016 16:26:Eden Hansen RN) Gen Hx Familial Dysautonomia: No (04/26/2016 16:26:Eden Hansen RN) Gen Hx Sickle Cell Disease/Trait: No (04/26/2016 16:26:Eden Hansen RN) Gen Hx Hemophilia/Blood Disorder: No (04/26/2016 16:26:Eden Hansen RN) Gen Hx Muscular Dystrophy: No (04/26/2016 16:26:Eden Hansen RN) Gen Hx Cystic Fibrosis: No (04/26/2016 16:26:Eden Hansen RN) Gen Hx [place] Chorea: No (04/26/2016 16:26:Eden Hansen RN) Gen Hx Mental Retardation/Autism: No (04/26/2016 16:26:Eden Hansen RN) Gen Hx Tested for Fragile X: No (04/26/2016 16:26:Eden Hansen RN) Gen Hx Other Inher/Chromosomal: No (04/26/2016 16:26:Eden aHnsen RN) Gen Hx Maternal Metabolic DO: No (04/26/2016 16:26:Eden Hansen RN) Gen Hx Pt Father or FOB Defect: No (04/26/2016 16:26:Eden Hansen RN) Gen Hx Other Genetic History: No (04/26/2016 16:26:Eden Hansen RN) Gen Hx Drugs/Meds since LMP: No (04/26/2016 16:26:Eden Hansen RN)
--- NOTE | 2016-04-30 06:21 | L&D Current Admission ---
Current Admit Datetime Report Generated by CPN: 04/30/2016 06:00 ADMISSION INFORMATION Chief Complaint: sharp lower constant abdominal pain only on right side (04/26/2016 16:30:Eden Hansen RN)
--- NOTE | 2016-04-30 06:21 | L&D General Admission ---
General Admit Datetime Report Generated by CPN: 04/30/2016 06:00 INFORMATION Patient Age: 25 (04/26/2016 16:12:QS system process) EDC: 05/20/2016 00:00 (04/26/2016 16:26:Kandace Galvan RN) : 3 (04/26/2016 16:26:Kandace Galvan RN) Para: 1 (04/26/2016 19:07:Eden Hansen RN) Livin (04/26/2016 16:26:Kandace Galvan RN) Baby, Number in Womb: 1 (04/26/2016 19:07:Eden Hansen RN) CARE Primary Radio Journalist: [facility] (04/26/2016 16:26:Knadace Galvan RN) Prepregnancy Weight (lb): 155 (04/26/2016 16:26:Kandace Galvan RN) Prepregnancy Weight (kg): 70.5 (04/26/2016 16:26:QS system process) Height (in): 61 (04/26/2016 16:40:QS system process) ALLERGIES Medication Allergy: No (04/26/2016 16:26:Eden Hansen RN) Medication Allergies: No Known Allergies (04/26/2016) (04/26/2016 16:24:QS system process) Latex Allergy: No Latex Allergies (04/26/2016 16:26:Eden Hansen RN) DEMOGRAPHICS Address: [address] [place] [address] [place] [address] (04/26/2016 16:12:QS system process) Zipcode: [phone] (04/26/2016 16:12:QS system process) Home (04/26/2016 16:12:QS system process) SSN: [id number] (04/26/2016 16:12:QS system process) Next of Kin Name: SHALONDA BRAVO (04/26/2016 16:12:QS system process) Next of Kin (04/26/2016 16:12:QS system process) Next of Kin Relationship: MO (04/26/2016 16:12:QS system process) Date of : 1990 (04/26/2016 16:12:QS system process) Marital Status: Single (04/26/2016 16:12:QS system process) Sex: Female (04/26/2016 16:12:QS system process) Race: (04/26/2016 16:12:QS system process) Ethnicity: Non- or (04/26/2016 16:12:QS system process) Orthodox: Other (04/26/2016 16:12:QS system process) DRUG AND ALCOHOL USE Alcohol: No (04/26/2016 16:26:Eden Hansen RN) Marijuana: No (04/26/2016 16:26:Eden Hansen RN) Cocaine: No (04/26/2016 16:26:Eden Hansen RN) Other Illicit Drugs: No (04/26/2016 16:26:Eden Hansen RN) Pain Management Plans: Epidural (04/26/2016 16:26:Eden Hansen RN) Plans for Labor and Delivery: None (04/26/2016 16:26:Eden Hansen RN) LABS Blood Type: A Positive (04/26/2016 16:26:Kandace Galvan RN) Antibody Screen: Negative (04/26/2016 16:26:Kandace Galvan RN) Gonorrhea: Negative (04/26/2016 16:26:Kandace Galvan RN) Chlamydia: Negative (04/26/2016 16:26:Kandace Galvan RN) RPR/VDRL: Nonreactive (04/26/2016 16:26:Kandace Galvan RN) HIV Exposure Test: Negative (04/26/2016 16:26:Kandace Galvan RN) Hepatitis B: Negative (04/26/2016 16:26:Kandace Galvan RN) Rubella: Non-Immune (04/26/2016 16:26:Kandace Galvan RN) OB/PREVIOUS HISTORY Previous Procedures: Ultrasound; NST (04/26/2016 16:26:Eden Hansen RN) Current Procedures: Ultrasound; NST (04/26/2016 16:26:Eden Hansen RN) History of Previous : No (04/26/2016 16:26:Eden Hansen RN) History of Gestational Diabetes: No (04/26/2016 16:26:Eden Hansen RN) History of PIH: No (04/26/2016 16:26:Eden Hansen RN) History of Incompetent Cervix: No (04/26/2016 16:26:Eden Hansen RN) History of Placenta Previa/Abrup: No (04/26/2016 16:26:Eden Hansen RN) History of Macrosomia: No (04/26/2016 16:26:Eden Hansen RN) History of IUGR: No (04/26/2016 16:26:Eden Hansen RN) History of Hemorrhage: No (04/26/2016 16:26:Eden Hansen RN) History of Loss/Stillborn: No (04/26/2016 16:26:Eden Hansen RN) History of : No (04/26/2016 16:26:Eden Hansen RN) History of D (Rh) Sensitization: No (04/26/2016 16:26:Eden Hansen RN) History Recurrent Loss/Stillborn: No (04/26/2016 16:26:Eden Hansen RN) History Depression/PP Depression: No (04/26/2016 16:26:Eden Hansen RN) History of Uterine Anomaly/BK: No (04/26/2016 16:26:Eden Hansen RN) History of Infertility: No (04/26/2016 16:26:Eden Hansen RN) History of ART Treatment: No (04/26/2016 16:26:Eden Hansen RN) History of BK: No (04/26/2016 16:26:Eden Hansen RN) Comments Obstetrical History: 2012 40.4 weeks G2: current (04/26/2016 16:26:Eden Hansen RN) MEDICAL HISTORY Med Hx Diabetes: No (04/26/2016 16:26:Eden Hansen RN) Med Hx Hypertension: No (04/26/2016 16:26:Eden Hansen RN) Med Hx Heart Disease: No (04/26/2016 16:26:Eden Hansen RN) Med Hx Autoimmune Disorder: No (04/26/2016 16:26:Eden Hansen RN) Med Hx Kidney Disease/UTI: No (04/26/2016 16:26:Eden Hansen RN) Med Hx Neurologic/Epilepsy: No (04/26/2016 16:26:Eden Hansen RN) Med Hx Psychiatric Disorders: No (04/26/2016 16:26:Eden Hansen RN) Med Hx Hepatitis/Liver Disease: No (04/26/2016 16:26:Eden Hansen RN) Med Hx Varicosities/Phlebitis: No (04/26/2016 16:26:Eden Hansen RN) Med Hx Thyroid Dysfunction: No (04/26/2016 16:26:Eden Hansen RN) Med Hx Trauma/Violence: No (04/26/2016 16:26:Eden Hansen RN) Med Hx Blood Transfusion: No (04/26/2016 16:26:Eden Hansen RN) Med Hx Pulmonary (Asthma,TB): No (04/26/2016 16:26:Eden Hansen RN) Med Hx Breast: No (04/26/2016 16:26:Eden Hansen RN) Med Hx SOCIAL STUDIES DEPARTMENT CHAIR Surgery: No (04/26/2016 16:26:Eden Hansen RN) Med Hx Hospitalization/Surgery: No (04/26/2016 16:26:Eden Hansen RN) Med Hx Anesthetic Complications: No (04/26/2016 16:26:Eden Hansen RN) Med Hx Abnormal Pap Smear: No (04/26/2016 16:26:Eden Hansen RN) Other Medical Diseases: No (04/26/2016 16:26:Eden Hansen RN) Med Hx Significant Family Hx: No (04/26/2016 16:26:Eden Hansen RN) INFECTIOUS HISTORY Inf Hx Gonorrhea: No (04/26/2016 16:26:Eden Hansen RN) Inf Hx Chlamydia: No (04/26/2016 16:26:Eden Hansen RN) Inf Hx Syphilis: No (04/26/2016 16:26:Eden Hansen RN) Inf Hx HIV/AIDS: No (04/26/2016 16:26:Eden Hansen RN) Inf Hx Human Papilloma Virus: No (04/26/2016 16:26:Eden Hansen RN) Inf Hx Pt/Partner Genital Herpes: No (04/26/2016 16:26:Eden Hansen RN) Inf Hx Tuberculosis/Exposure: No (04/26/2016 16:26:Eden Hansen RN) Inf Hx Hepatitis B,C: No (04/26/2016 16:26:Eden Hansen RN) Inf Hx Rash or Viral Illness: No (04/26/2016 16:26:Eden Hansen RN) GENETIC HISTORY Gen Hx Age >=35 at TOMASZ: No (04/26/2016 16:26:Eden Hansen RN) Gen Hx Thalassemia: No (04/26/2016 16:26:Eden Hansen RN) Gen Hx Congenital Heart Defect: No (04/26/2016 16:26:Eden Hansen RN) Gen Hx Neural Tube Defect: No (04/26/2016 16:26:Eden Hansen RN) Gen Hx Down's Syndrome: No (04/26/2016 16:26:Eden Hansen RN) Gen Hx Bayron-Sachs: No (04/26/2016 16:26:Eden Hansen RN) Gen Hx Hugh: No (04/26/2016 16:26:Eden Hansen RN) Gen Hx Familial Dysautonomia: No (04/26/2016 16:26:Eden Hansen RN) Gen Hx Sickle Cell Disease/Trait: No (04/26/2016 16:26:Eden Hansen RN) Gen Hx Hemophilia/Blood Disorder: No (04/26/2016 16:26:Eden Hansen RN) Gen Hx Muscular Dystrophy: No (04/26/2016 16:26:Eden Hansen RN) Gen Hx Cystic Fibrosis: No (04/26/2016 16:26:Eden Hansen RN) Gen Hx Huntingtons Chorea: No (04/26/2016 16:26:Eden Hansen RN) Gen Hx Mental Retardation/Autism: No (04/26/2016 16:26:Eden Hansen RN) Gen Hx Tested for Fragile X: No (04/26/2016 16:26:Eden Hansen RN) Gen Hx Other Inher/Chromosomal: No (04/26/2016 16:26:Eden Hansen RN) Gen Hx Maternal Metabolic DO: No (04/26/2016 16:26:Eden Hansen RN) Gen Hx Pt Father or FOB Defect: No (04/26/2016 16:26:Eden Hansen RN) Gen Hx Other Genetic History: No (04/26/2016 16:26:Eden Hansen RN) Gen Hx Drugs/Meds since LMP: No (04/26/2016 16:26:Eden Hansen RN)
--- NOTE | 2016-05-01 06:22 | L&D General Admission ---
General Admit Datetime Report Generated by CPN: 05/01/2016 06:00 INFORMATION Patient Age: 25 (04/26/2016 16:12:QS system process) EDC: 05/20/2016 00:00 (04/26/2016 16:26:Kandace Galvan RN) : 3 (04/26/2016 16:26:Kandace Galvan RN) Para: 1 (04/26/2016 19:07:Eden Hansen RN) Livin (04/26/2016 16:26:Kandace Galvan RN) Baby, Number in Womb: 1 (04/26/2016 19:07:Eden Hansen RN) CARE Primary Corporate Travel Consultant: [facility] (04/26/2016 16:26:Kandace Galvan RN) Prepregnancy Weight (lb): 155 (04/26/2016 16:26:Kandace Galvan RN) Prepregnancy Weight (kg): 70.5 (04/26/2016 16:26:QS system process) Height (in): 61 (04/26/2016 16:40:QS system process) ALLERGIES Medication Allergy: No (04/26/2016 16:26:Eden Hansen RN) Medication Allergies: No Known Allergies (04/26/2016) (04/26/2016 16:24:QS system process) Latex Allergy: No Latex Allergies (04/26/2016 16:26:Eden Hansen RN) DEMOGRAPHICS Address: [address] [place] [address] [place] [address] (04/26/2016 16:12:QS system process) Zipcode: [phone] (04/26/2016 16:12:QS system process) Home (04/26/2016 16:12:QS system process) SSN: [id number] (04/26/2016 16:12:QS system process) Next of Kin Name: SHALONDA BRAVO (04/26/2016 16:12:QS system process) Next of Kin (04/26/2016 16:12:QS system process) Next of Kin Relationship: MO (04/26/2016 16:12:QS system process) Date of : 1990 (04/26/2016 16:12:QS system process) Marital Status: Single (04/26/2016 16:12:QS system process) Sex: Female (04/26/2016 16:12:QS system process) Race: (04/26/2016 16:12:QS system process) Ethnicity: Non- or (04/26/2016 16:12:QS system process) Christianity: Other (04/26/2016 16:12:QS system process) DRUG AND ALCOHOL USE Alcohol: No (04/26/2016 16:26:Eden Hansen RN) Marijuana: No (04/26/2016 16:26:Eden Hansen RN) Cocaine: No (04/26/2016 16:26:Eden Hansen RN) Other Illicit Drugs: No (04/26/2016 16:26:Eden Hansen RN) Pain Management Plans: Epidural (04/26/2016 16:26:Eden Hansen RN) Plans for Labor and Delivery: None (04/26/2016 16:26:Eden Hansen RN) LABS Blood Type: A Positive (04/26/2016 16:26:Kandace Galvan RN) Antibody Screen: Negative (04/26/2016 16:26:Kandace Galvan RN) Gonorrhea: Negative (04/26/2016 16:26:Kandace Galvan RN) Chlamydia: Negative (04/26/2016 16:26:Kandace Galvan RN) RPR/VDRL: Nonreactive (04/26/2016 16:26:Kandace Galvan RN) HIV Exposure Test: Negative (04/26/2016 16:26:Kandace Galvan RN) Hepatitis B: Negative (04/26/2016 16:26:Kandace Galvan RN) Rubella: Non-Immune (04/26/2016 16:26:Kandace Galvan RN) OB/PREVIOUS HISTORY Previous Procedures: Ultrasound; NST (04/26/2016 16:26:Eden Hansen RN) Current Procedures: Ultrasound; NST (04/26/2016 16:26:Eden Hansen RN) History of Previous : No (04/26/2016 16:26:Eden Hansen RN) History of Gestational Diabetes: No (04/26/2016 16:26:Eden Hansen RN) History of PIH: No (04/26/2016 16:26:Eden Hansen RN) History of Incompetent Cervix: No (04/26/2016 16:26:Eden Hansen RN) History of Placenta Previa/Abrup: No (04/26/2016 16:26:Eden Hansen RN) History of Macrosomia: No (04/26/2016 16:26:Eden Hansen RN) History of IUGR: No (04/26/2016 16:26:Eden Hansen RN) History of Hemorrhage: No (04/26/2016 16:26:Eden Hansen RN) History of Loss/Stillborn: No (04/26/2016 16:26:Eden Hansen RN) History of : No (04/26/2016 16:26:Eden Hansen RN) History of D (Rh) Sensitization: No (04/26/2016 16:26:Eden Hansen RN) History Recurrent Loss/Stillborn: No (04/26/2016 16:26:Eden Hansen RN) History Depression/PP Depression: No (04/26/2016 16:26:Eden Hansen RN) History of Uterine Anomaly/BK: No (04/26/2016 16:26:Eden Hansen RN) History of Infertility: No (04/26/2016 16:26:Eden Hansen RN) History of ART Treatment: No (04/26/2016 16:26:Eden Hansen RN) History of BK: No (04/26/2016 16:26:Eden Hansen RN) Comments Obstetrical History: 2012 40.4 weeks G2: current (04/26/2016 16:26:Eden Hansen RN) MEDICAL HISTORY Med Hx Diabetes: No (04/26/2016 16:26:Eden Hansen RN) Med Hx Hypertension: No (04/26/2016 16:26:Eden Hansen RN) Med Hx Heart Disease: No (04/26/2016 16:26:Eden Hansen RN) Med Hx Autoimmune Disorder: No (04/26/2016 16:26:Eden Hansen RN) Med Hx Kidney Disease/UTI: No (04/26/2016 16:26:Eden Hansen RN) Med Hx Neurologic/Epilepsy: No (04/26/2016 16:26:Eden Hansen RN) Med Hx Psychiatric Disorders: No (04/26/2016 16:26:Eden Hansen RN) Med Hx Hepatitis/Liver Disease: No (04/26/2016 16:26:Eden Hansen RN) Med Hx Varicosities/Phlebitis: No (04/26/2016 16:26:Eden Hansen RN) Med Hx Thyroid Dysfunction: No (04/26/2016 16:26:Eden Hansen RN) Med Hx Trauma/Violence: No (04/26/2016 16:26:Eden Hansen RN) Med Hx Blood Transfusion: No (04/26/2016 16:26:Eden Hansen RN) Med Hx Pulmonary (Asthma,TB): No (04/26/2016 16:26:Eden Hansen RN) Med Hx Breast: No (04/26/2016 16:26:Eden Hansen RN) Med Hx LOT BOSS Surgery: No (04/26/2016 16:26:Eden Hansen RN) Med Hx Hospitalization/Surgery: No (04/26/2016 16:26:Eden Hansen RN) Med Hx Anesthetic Complications: No (04/26/2016 16:26:Eden Hansen RN) Med Hx Abnormal Pap Smear: No (04/26/2016 16:26:Eden Hansen RN) Other Medical Diseases: No (04/26/2016 16:26:Eedn Hansen RN) Med Hx Significant Family Hx: No (04/26/2016 16:26:Eden Hansen RN) INFECTIOUS HISTORY Inf Hx Gonorrhea: No (04/26/2016 16:26:Eden Hansen RN) Inf Hx Chlamydia: No (04/26/2016 16:26:Eden Hansen RN) Inf Hx Syphilis: No (04/26/2016 16:26:Eden Hansen RN) Inf Hx HIV/AIDS: No (04/26/2016 16:26:Eden Hansen RN) Inf Hx Human Papilloma Virus: No (04/26/2016 16:26:Eden Hansen RN) Inf Hx Pt/Partner Genital Herpes: No (04/26/2016 16:26:Eden Hansen RN) Inf Hx Tuberculosis/Exposure: No (04/26/2016 16:26:Eden Hansen RN) Inf Hx Hepatitis B,C: No (04/26/2016 16:26:Eden Hansen RN) Inf Hx Rash or Viral Illness: No (04/26/2016 16:26:Eden Hansen RN) GENETIC HISTORY Gen Hx Age >=35 at TOMASZ: No (04/26/2016 16:26:Eden Hansen RN) Gen Hx Thalassemia: No (04/26/2016 16:26:Eden Hansen RN) Gen Hx Congenital Heart Defect: No (04/26/2016 16:26:Eden Hansen RN) Gen Hx Neural Tube Defect: No (04/26/2016 16:26:Eden Hansen RN) Gen Hx Down's Syndrome: No (04/26/2016 16:26:Eden Hansen RN) Gen Hx Bayron-Sachs: No (04/26/2016 16:26:Eden Hansen RN) Gen Hx Hugh: No (04/26/2016 16:26:Eden Hansen RN) Gen Hx Familial Dysautonomia: No (04/26/2016 16:26:Eden Hansen RN) Gen Hx Sickle Cell Disease/Trait: No (04/26/2016 16:26:Eden Hansen RN) Gen Hx Hemophilia/Blood Disorder: No (04/26/2016 16:26:Eden Hansen RN) Gen Hx Muscular Dystrophy: No (04/26/2016 16:26:Eden Hansen RN) Gen Hx Cystic Fibrosis: No (04/26/2016 16:26:Eden Hansen RN) Gen Hx Huntingtons Chorea: No (04/26/2016 16:26:Eden Hansen RN) Gen Hx Mental Retardation/Autism: No (04/26/2016 16:26:Eden Hansen RN) Gen Hx Tested for Fragile X: No (04/26/2016 16:26:Eden Hansen RN) Gen Hx Other Inher/Chromosomal: No (04/26/2016 16:26:Eden Hansen RN) Gen Hx Maternal Metabolic DO: No (04/26/2016 16:26:Eden Hansen RN) Gen Hx Pt Father or FOB Defect: No (04/26/2016 16:26:Eden Hansen RN) Gen Hx Other Genetic History: No (04/26/2016 16:26:Eden Hansen RN) Gen Hx Drugs/Meds since LMP: No (04/26/2016 16:26:Eden Hansen RN)
--- NOTE | 2016-05-01 06:22 | L&D Current Admission ---
Current Admit Datetime Report Generated by CPN: 05/01/2016 06:00 ADMISSION INFORMATION Chief Complaint: sharp lower constant abdominal pain only on right side (04/26/2016 16:30:Eden Hansen RN)
--- NOTE | 2016-05-02 06:24 | L&D Current Admission ---
Current Admit Datetime Report Generated by CPN: 05/02/2016 06:00 ADMISSION INFORMATION Chief Complaint: sharp lower constant abdominal pain only on right side (04/26/2016 16:30:Eden Hansen RN)
--- NOTE | 2016-05-02 06:24 | L&D General Admission ---
General Admit Datetime Report Generated by CPN: 05/02/2016 06:00 INFORMATION Patient Age: 25 (04/26/2016 16:12:QS system process) EDC: 05/20/2016 00:00 (04/26/2016 16:26:Kandace Galvan RN) : 3 (04/26/2016 16:26:Kandace Galvan RN) Para: 1 (04/26/2016 19:07:Eden Hansen RN) Livin (04/26/2016 16:26:Kandace Galvan RN) Baby, Number in Womb: 1 (04/26/2016 19:07:Eden Hansen RN) CARE Primary Helper Maintenance Cleaning: [facility] (04/26/2016 16:26:Kandace Galvan RN) Prepregnancy Weight (lb): 155 (04/26/2016 16:26:Kandace Galvan RN) Prepregnancy Weight (kg): 70.5 (04/26/2016 16:26:QS system process) Height (in): 61 (04/26/2016 16:40:QS system process) ALLERGIES Medication Allergy: No (04/26/2016 16:26:Eden Hansen RN) Medication Allergies: No Known Allergies (04/26/2016) (04/26/2016 16:24:QS system process) Latex Allergy: No Latex Allergies (04/26/2016 16:26:Eden Hansen RN) DEMOGRAPHICS Address: [address] [place] [address] [place] [address] (04/26/2016 16:12:QS system process) Zipcode: [phone] (04/26/2016 16:12:QS system process) Home (04/26/2016 16:12:QS system process) SSN: [id number] (04/26/2016 16:12:QS system process) Next of Kin Name: SHALONDA BRAVO (04/26/2016 16:12:QS system process) Next of Kin (04/26/2016 16:12:QS system process) Next of Kin Relationship: MO (04/26/2016 16:12:QS system process) Date of : 1990 (04/26/2016 16:12:QS system process) Marital Status: Single (04/26/2016 16:12:QS system process) Sex: Female (04/26/2016 16:12:QS system process) Race: (04/26/2016 16:12:QS system process) Ethnicity: Non- or (04/26/2016 16:12:QS system process) Episcopalian: Other (04/26/2016 16:12:QS system process) DRUG AND ALCOHOL USE Alcohol: No (04/26/2016 16:26:Eden Hansen RN) Marijuana: No (04/26/2016 16:26:Eden Hansen RN) Cocaine: No (04/26/2016 16:26:Eden Hansen RN) Other Illicit Drugs: No (04/26/2016 16:26:Eden Hansen RN) Pain Management Plans: Epidural (04/26/2016 16:26:Eden Hansen RN) Plans for Labor and Delivery: None (04/26/2016 16:26:Eden Hansen RN) LABS Blood Type: A Positive (04/26/2016 16:26:Kandace Galvan RN) Antibody Screen: Negative (04/26/2016 16:26:Kandace Galvan RN) Gonorrhea: Negative (04/26/2016 16:26:Kandace Galvan RN) Chlamydia: Negative (04/26/2016 16:26:Kandace Galvan RN) RPR/VDRL: Nonreactive (04/26/2016 16:26:Kandace Galvan RN) HIV Exposure Test: Negative (04/26/2016 16:26:Kandace Galvan RN) Hepatitis B: Negative (04/26/2016 16:26:Kandace Galvan RN) Rubella: Non-Immune (04/26/2016 16:26:Kandace Galvan RN) OB/PREVIOUS HISTORY Previous Procedures: Ultrasound; NST (04/26/2016 16:26:Eden Hansen RN) Current Procedures: Ultrasound; NST (04/26/2016 16:26:Eden Hansen RN) History of Previous : No (04/26/2016 16:26:Eden Hansen RN) History of Gestational Diabetes: No (04/26/2016 16:26:Eden Hansen RN) History of PIH: No (04/26/2016 16:26:Eden Hansen RN) History of Incompetent Cervix: No (04/26/2016 16:26:Eden Hansen RN) History of Placenta Previa/Abrup: No (04/26/2016 16:26:Eden Hansen RN) History of Macrosomia: No (04/26/2016 16:26:Eden Hansen RN) History of IUGR: No (04/26/2016 16:26:Eden Hansen RN) History of Hemorrhage: No (04/26/2016 16:26:Eden Hansen RN) History of Loss/Stillborn: No (04/26/2016 16:26:Eden Hansen RN) History of : No (04/26/2016 16:26:Eden Hansen RN) History of D (Rh) Sensitization: No (04/26/2016 16:26:Eden Hansen RN) History Recurrent Loss/Stillborn: No (04/26/2016 16:26:Eden Hansen RN) History Depression/PP Depression: No (04/26/2016 16:26:Eden Hansen RN) History of Uterine Anomaly/BK: No (04/26/2016 16:26:Eden Hansen RN) History of Infertility: No (04/26/2016 16:26:Eden Hansen RN) History of ART Treatment: No (04/26/2016 16:26:Eden Hansen RN) History of BK: No (04/26/2016 16:26:Eden Hansen RN) Comments Obstetrical History: 2012 40.4 weeks G2: current (04/26/2016 16:26:Eden Hansen RN) MEDICAL HISTORY Med Hx Diabetes: No (04/26/2016 16:26:Eden Hansen RN) Med Hx Hypertension: No (04/26/2016 16:26:Eden Hansen RN) Med Hx Heart Disease: No (04/26/2016 16:26:Eden Hansen RN) Med Hx Autoimmune Disorder: No (04/26/2016 16:26:Eden Hansen RN) Med Hx Kidney Disease/UTI: No (04/26/2016 16:26:Eden Hansen RN) Med Hx Neurologic/Epilepsy: No (04/26/2016 16:26:Eden Hansen RN) Med Hx Psychiatric Disorders: No (04/26/2016 16:26:Eden Hansen RN) Med Hx Hepatitis/Liver Disease: No (04/26/2016 16:26:Eden Hansen RN) Med Hx Varicosities/Phlebitis: No (04/26/2016 16:26:Eden Hansen RN) Med Hx Thyroid Dysfunction: No (04/26/2016 16:26:Eden Hansen RN) Med Hx Trauma/Violence: No (04/26/2016 16:26:Eden Hansen RN) Med Hx Blood Transfusion: No (04/26/2016 16:26:Eden Hansen RN) Med Hx Pulmonary (Asthma,TB): No (04/26/2016 16:26:Eden Hansen RN) Med Hx Breast: No (04/26/2016 16:26:Eden Hansen RN) Med Hx DATA COMMUNICATIONS ENGINEER Surgery: No (04/26/2016 16:26:Eden Hansen RN) Med Hx Hospitalization/Surgery: No (04/26/2016 16:26:Eden Hansen RN) Med Hx Anesthetic Complications: No (04/26/2016 16:26:Eden Hansen RN) Med Hx Abnormal Pap Smear: No (04/26/2016 16:26:Eden Hansen RN) Other Medical Diseases: No (04/26/2016 16:26:Eden Hansen RN) Med Hx Significant Family Hx: No (04/26/2016 16:26:Eden Hansen RN) INFECTIOUS HISTORY Inf Hx Gonorrhea: No (04/26/2016 16:26:Eden Hansen RN) Inf Hx Chlamydia: No (04/26/2016 16:26:Eden Hansen RN) Inf Hx Syphilis: No (04/26/2016 16:26:Eden Hansen RN) Inf Hx HIV/AIDS: No (04/26/2016 16:26:Eden Hansen RN) Inf Hx Human Papilloma Virus: No (04/26/2016 16:26:Eden Hansen RN) Inf Hx Pt/Partner Genital Herpes: No (04/26/2016 16:26:Eden Hansen RN) Inf Hx Tuberculosis/Exposure: No (04/26/2016 16:26:Eden Hansen RN) Inf Hx Hepatitis B,C: No (04/26/2016 16:26:Eden Hansen RN) Inf Hx Rash or Viral Illness: No (04/26/2016 16:26:Eden Hansen RN) GENETIC HISTORY Gen Hx Age >=35 at TOMASZ: No (04/26/2016 16:26:Eden Hansen RN) Gen Hx Thalassemia: No (04/26/2016 16:26:Eden Hansen RN) Gen Hx Congenital Heart Defect: No (04/26/2016 16:26:Eden Hansen RN) Gen Hx Neural Tube Defect: No (04/26/2016 16:26:Eden Hansen RN) Gen Hx Down's Syndrome: No (04/26/2016 16:26:Eden Hansen RN) Gen Hx Bayron-Sachs: No (04/26/2016 16:26:Eden Hansen RN) Gen Hx Hugh: No (04/26/2016 16:26:Eden Hansen RN) Gen Hx Familial Dysautonomia: No (04/26/2016 16:26:Eden Hansen RN) Gen Hx Sickle Cell Disease/Trait: No (04/26/2016 16:26:Eden Hansen RN) Gen Hx Hemophilia/Blood Disorder: No (04/26/2016 16:26:Eden Hansen RN) Gen Hx Muscular Dystrophy: No (04/26/2016 16:26:Eden Hansen RN) Gen Hx Cystic Fibrosis: No (04/26/2016 16:26:Eden Hansen RN) Gen Hx [place] Chorea: No (04/26/2016 16:26:Eden Hansen RN) Gen Hx Mental Retardation/Autism: No (04/26/2016 16:26:Eden Hansen RN) Gen Hx Tested for Fragile X: No (04/26/2016 16:26:Eden Hansen RN) Gen Hx Other Inher/Chromosomal: No (04/26/2016 16:26:Eden Hansen RN) Gen Hx Maternal Metabolic DO: No (04/26/2016 16:26:Eden Hansen RN) Gen Hx Pt Father or FOB Defect: No (04/26/2016 16:26:Eden Hansen RN) Gen Hx Other Genetic History: No (04/26/2016 16:26:Eden Hansen RN) Gen Hx Drugs/Meds since LMP: No (04/26/2016 16:26:Eden Hansen RN)
--- NOTE | 2016-05-03 06:22 | L&D Current Admission ---
Current Admit Datetime Report Generated by CPN: 05/03/2016 06:00 ADMISSION INFORMATION Chief Complaint: sharp lower constant abdominal pain only on right side (04/26/2016 16:30:Eden Hansen RN)
--- NOTE | 2016-05-03 06:23 | L&D General Admission ---
General Admit Datetime Report Generated by CPN: 05/03/2016 06:00 INFORMATION Patient Age: 25 (04/26/2016 16:12:QS system process) EDC: 05/20/2016 00:00 (04/26/2016 16:26:Kandace Galvan RN) : 3 (04/26/2016 16:26:Kandace Galvan RN) Para: 1 (04/26/2016 19:07:Eedn Hansen RN) Livin (04/26/2016 16:26:Kandace Galvan RN) Baby, Number in Womb: 1 (04/26/2016 19:07:Eden Hansen RN) CARE Primary Dry Cleaner Hand: [facility] (04/26/2016 16:26:Kandace Galvan RN) Prepregnancy Weight (lb): 155 (04/26/2016 16:26:Kandace Galvan RN) Prepregnancy Weight (kg): 70.5 (04/26/2016 16:26:QS system process) Height (in): 61 (04/26/2016 16:40:QS system process) ALLERGIES Medication Allergy: No (04/26/2016 16:26:Eden Hansen RN) Medication Allergies: No Known Allergies (04/26/2016) (04/26/2016 16:24:QS system process) Latex Allergy: No Latex Allergies (04/26/2016 16:26:Eden Hansen RN) DEMOGRAPHICS Address: [address] [place] [address] [place] [address] (04/26/2016 16:12:QS system process) Zipcode: [phone] (04/26/2016 16:12:QS system process) Home (04/26/2016 16:12:QS system process) SSN: [id number] (04/26/2016 16:12:QS system process) Next of Kin Name: SHALONDA BRAVO (04/26/2016 16:12:QS system process) Next of Kin (04/26/2016 16:12:QS system process) Next of Kin Relationship: MO (04/26/2016 16:12:QS system process) Date of : 1990 (04/26/2016 16:12:QS system process) Marital Status: Single (04/26/2016 16:12:QS system process) Sex: Female (04/26/2016 16:12:QS system process) Race: (04/26/2016 16:12:QS system process) Ethnicity: Non- or (04/26/2016 16:12:QS system process) Shinto: Other (04/26/2016 16:12:QS system process) DRUG AND ALCOHOL USE Alcohol: No (04/26/2016 16:26:Eden Hansen RN) Marijuana: No (04/26/2016 16:26:Eden Hansen RN) Cocaine: No (04/26/2016 16:26:Eden Hansen RN) Other Illicit Drugs: No (04/26/2016 16:26:Eden Hansen RN) Pain Management Plans: Epidural (04/26/2016 16:26:Eden Hansen RN) Plans for Labor and Delivery: None (04/26/2016 16:26:Eden Hansen RN) LABS Blood Type: A Positive (04/26/2016 16:26:Kandace Galvan RN) Antibody Screen: Negative (04/26/2016 16:26:Kandace Galvan RN) Gonorrhea: Negative (04/26/2016 16:26:Kandace Galvan RN) Chlamydia: Negative (04/26/2016 16:26:Kandace Galvan RN) RPR/VDRL: Nonreactive (04/26/2016 16:26:Kandace Galvan RN) HIV Exposure Test: Negative (04/26/2016 16:26:Kandace Galvan RN) Hepatitis B: Negative (04/26/2016 16:26:Kandace Galvan RN) Rubella: Non-Immune (04/26/2016 16:26:Kandace Galvan RN) OB/PREVIOUS HISTORY Previous Procedures: Ultrasound; NST (04/26/2016 16:26:Eden Hansen RN) Current Procedures: Ultrasound; NST (04/26/2016 16:26:Eden Hansen RN) History of Previous : No (04/26/2016 16:26:Eden Hansen RN) History of Gestational Diabetes: No (04/26/2016 16:26:Eden Hansen RN) History of PIH: No (04/26/2016 16:26:Eden Hansen RN) History of Incompetent Cervix: No (04/26/2016 16:26:Eden Hansen RN) History of Placenta Previa/Abrup: No (04/26/2016 16:26:Eden Hansen RN) History of Macrosomia: No (04/26/2016 16:26:Eden Hansen RN) History of IUGR: No (04/26/2016 16:26:Eden Hansen RN) History of Hemorrhage: No (04/26/2016 16:26:Eden Hansen RN) History of Loss/Stillborn: No (04/26/2016 16:26:Eden Hansen RN) History of : No (04/26/2016 16:26:Eden Hansen RN) History of D (Rh) Sensitization: No (04/26/2016 16:26:Eden Hansen RN) History Recurrent Loss/Stillborn: No (04/26/2016 16:26:Eden Hansen RN) History Depression/PP Depression: No (04/26/2016 16:26:Eden Hansen RN) History of Uterine Anomaly/BK: No (04/26/2016 16:26:Eden Hansen RN) History of Infertility: No (04/26/2016 16:26:Eden Hansen RN) History of ART Treatment: No (04/26/2016 16:26:Eden Hansen RN) History of BK: No (04/26/2016 16:26:Eden Hansen RN) Comments Obstetrical History: 2012 40.4 weeks G2: current (04/26/2016 16:26:Eden Hansen RN) MEDICAL HISTORY Med Hx Diabetes: No (04/26/2016 16:26:Eden Hansen RN) Med Hx Hypertension: No (04/26/2016 16:26:Eden Hansen RN) Med Hx Heart Disease: No (04/26/2016 16:26:Eden Hansen RN) Med Hx Autoimmune Disorder: No (04/26/2016 16:26:Eden Hansen RN) Med Hx Kidney Disease/UTI: No (04/26/2016 16:26:Eden Hansen RN) Med Hx Neurologic/Epilepsy: No (04/26/2016 16:26:Eden Hansen RN) Med Hx Psychiatric Disorders: No (04/26/2016 16:26:Eden Hansen RN) Med Hx Hepatitis/Liver Disease: No (04/26/2016 16:26:Eden Hansen RN) Med Hx Varicosities/Phlebitis: No (04/26/2016 16:26:Eden Hansen RN) Med Hx Thyroid Dysfunction: No (04/26/2016 16:26:Eden Hansen RN) Med Hx Trauma/Violence: No (04/26/2016 16:26:Eden Hansen RN) Med Hx Blood Transfusion: No (04/26/2016 16:26:Eden Hansen RN) Med Hx Pulmonary (Asthma,TB): No (04/26/2016 16:26:Eden Hansen RN) Med Hx Breast: No (04/26/2016 16:26:Eden Hansen RN) Med Hx 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 (04/26/2016 16:26:Eden Hansen RN) Med Hx Hospitalization/Surgery: No (04/26/2016 16:26:Eden Hansen RN) Med Hx Anesthetic Complications: No (04/26/2016 16:26:Eden Hansen RN) Med Hx Abnormal Pap Smear: No (04/26/2016 16:26:Eden Hansen RN) Other Medical Diseases: No (04/26/2016 16:26:Eden Hansen RN) Med Hx Significant Family Hx: No (04/26/2016 16:26:Eden Hansen RN) INFECTIOUS HISTORY Inf Hx Gonorrhea: No (04/26/2016 16:26:Eden Hansen RN) Inf Hx Chlamydia: No (04/26/2016 16:26:Eden Hansen RN) Inf Hx Syphilis: No (04/26/2016 16:26:Eden Hansen RN) Inf Hx HIV/AIDS: No (04/26/2016 16:26:Eden Hansen RN) Inf Hx Human Papilloma Virus: No (04/26/2016 16:26:Eden Hansen RN) Inf Hx Pt/Partner Genital Herpes: No (04/26/2016 16:26:Eden Hansen RN) Inf Hx Tuberculosis/Exposure: No (04/26/2016 16:26:Eden Hansen RN) Inf Hx Hepatitis B,C: No (04/26/2016 16:26:Eden Hansen RN) Inf Hx Rash or Viral Illness: No (04/26/2016 16:26:Eden Hansen RN) GENETIC HISTORY Gen Hx Age >=35 at TOMASZ: No (04/26/2016 16:26:Eden Hansen RN) Gen Hx Thalassemia: No (04/26/2016 16:26:Eden Hansen RN) Gen Hx Congenital Heart Defect: No (04/26/2016 16:26:Eden Hansen RN) Gen Hx Neural Tube Defect: No (04/26/2016 16:26:Eden Hansen RN) Gen Hx Down's Syndrome: No (04/26/2016 16:26:Eden Hansen RN) Gen Hx Bayron-Sachs: No (04/26/2016 16:26:Eden Hansen RN) Gen Hx Hugh: No (04/26/2016 16:26:Eden Hansen RN) Gen Hx Familial Dysautonomia: No (04/26/2016 16:26:Eden Hansen RN) Gen Hx Sickle Cell Disease/Trait: No (04/26/2016 16:26:Eden Hansen RN) Gen Hx Hemophilia/Blood Disorder: No (04/26/2016 16:26:Eden Hansen RN) Gen Hx Muscular Dystrophy: No (04/26/2016 16:26:Eden Hansen RN) Gen Hx Cystic Fibrosis: No (04/26/2016 16:26:Eden Hansen RN) Gen Hx Huntingtons Chorea: No (04/26/2016 16:26:Eden Hansen RN) Gen Hx Mental Retardation/Autism: No (04/26/2016 16:26:Eden Hansen RN) Gen Hx Tested for Fragile X: No (04/26/2016 16:26:Eden Hansen RN) Gen Hx Other Inher/Chromosomal: No (04/26/2016 16:26:Eden Hansen RN) Gen Hx Maternal Metabolic DO: No (04/26/2016 16:26:Eden Hansen RN) Gen Hx Pt Father or FOB Defect: No (04/26/2016 16:26:Eden Hansen RN) Gen Hx Other Genetic History: No (04/26/2016 16:26:Eden Hansen RN) Gen Hx Drugs/Meds since LMP: No (04/26/2016 16:26:Eden Hansen RN)
--- NOTE | 2016-05-04 06:23 | L&D General Admission ---
General Admit Datetime Report Generated by CPN: 05/04/2016 06:00 INFORMATION Patient Age: 25 (04/26/2016 16:12:QS system process) EDC: 05/20/2016 00:00 (04/26/2016 16:26:Kandace Galvan RN) : 3 (04/26/2016 16:26:Kandace Galvan RN) Para: 1 (04/26/2016 19:07:Eden Hansen RN) Livin (04/26/2016 16:26:Kandace Galvan RN) Baby, Number in Womb: 1 (04/26/2016 19:07:Eden Hansen RN) CARE Primary Food Production Associate: [facility] (04/26/2016 16:26:Kandace Galvan RN) Prepregnancy Weight (lb): 155 (04/26/2016 16:26:Kandace Galvan RN) Prepregnancy Weight (kg): 70.5 (04/26/2016 16:26:QS system process) Height (in): 61 (04/26/2016 16:40:QS system process) ALLERGIES Medication Allergy: No (04/26/2016 16:26:Eden Hansen RN) Medication Allergies: No Known Allergies (04/26/2016) (04/26/2016 16:24:QS system process) Latex Allergy: No Latex Allergies (04/26/2016 16:26:Eden Hansen RN) DEMOGRAPHICS Address: [address] [place] [address] [place] [address] (04/26/2016 16:12:QS system process) Zipcode: [phone] (04/26/2016 16:12:QS system process) Home (04/26/2016 16:12:QS system process) SSN: [id number] (04/26/2016 16:12:QS system process) Next of Kin Name: SHALONDA BRAVO (04/26/2016 16:12:QS system process) Next of Kin (04/26/2016 16:12:QS system process) Next of Kin Relationship: MO (04/26/2016 16:12:QS system process) Date of : 1990 (04/26/2016 16:12:QS system process) Marital Status: Single (04/26/2016 16:12:QS system process) Sex: Female (04/26/2016 16:12:QS system process) Race: (04/26/2016 16:12:QS system process) Ethnicity: Non- or (04/26/2016 16:12:QS system process) Moravian: Other (04/26/2016 16:12:QS system process) DRUG AND ALCOHOL USE Alcohol: No (04/26/2016 16:26:Eden Hansen RN) Marijuana: No (04/26/2016 16:26:Eden Hansen RN) Cocaine: No (04/26/2016 16:26:Eden Hansen RN) Other Illicit Drugs: No (04/26/2016 16:26:Eden Hansen RN) Pain Management Plans: Epidural (04/26/2016 16:26:Eden Hansen RN) Plans for Labor and Delivery: None (04/26/2016 16:26:Eden Hansen RN) LABS Blood Type: A Positive (04/26/2016 16:26:Kandace Galvan RN) Antibody Screen: Negative (04/26/2016 16:26:Kandace Galvan RN) Gonorrhea: Negative (04/26/2016 16:26:Kandace Galvan RN) Chlamydia: Negative (04/26/2016 16:26:Kandace Galvan RN) RPR/VDRL: Nonreactive (04/26/2016 16:26:Kandace Galvan RN) HIV Exposure Test: Negative (04/26/2016 16:26:Kandace Galvan RN) Hepatitis B: Negative (04/26/2016 16:26:Kandace Galvan RN) Rubella: Non-Immune (04/26/2016 16:26:Kandace Galvan RN) OB/PREVIOUS HISTORY Previous Procedures: Ultrasound; NST (04/26/2016 16:26:Eden Hansen RN) Current Procedures: Ultrasound; NST (04/26/2016 16:26:Eden Hansen RN) History of Previous : No (04/26/2016 16:26:Eden Hansen RN) History of Gestational Diabetes: No (04/26/2016 16:26:Eden Hansen RN) History of PIH: No (04/26/2016 16:26:Eden Hansen RN) History of Incompetent Cervix: No (04/26/2016 16:26:Eden Hansen RN) History of Placenta Previa/Abrup: No (04/26/2016 16:26:Eden Hansen RN) History of Macrosomia: No (04/26/2016 16:26:Eden Hansen RN) History of IUGR: No (04/26/2016 16:26:Eden Hansen RN) History of Hemorrhage: No (04/26/2016 16:26:Eden Hansen RN) History of Loss/Stillborn: No (04/26/2016 16:26:Eden Hansen RN) History of : No (04/26/2016 16:26:Eden Hansen RN) History of D (Rh) Sensitization: No (04/26/2016 16:26:Eden Hansen RN) History Recurrent Loss/Stillborn: No (04/26/2016 16:26:Eden Hansen RN) History Depression/PP Depression: No (04/26/2016 16:26:Eden Hansen RN) History of Uterine Anomaly/BK: No (04/26/2016 16:26:Eden Hansen RN) History of Infertility: No (04/26/2016 16:26:Eden Hansen RN) History of ART Treatment: No (04/26/2016 16:26:Eden Hansen RN) History of BK: No (04/26/2016 16:26:Eden Hansen RN) Comments Obstetrical History: 2012 40.4 weeks G2: current (04/26/2016 16:26:Eden Hansen RN) MEDICAL HISTORY Med Hx Diabetes: No (04/26/2016 16:26:Eden Hansen RN) Med Hx Hypertension: No (04/26/2016 16:26:Eden Hansen RN) Med Hx Heart Disease: No (04/26/2016 16:26:Eden Hansen RN) Med Hx Autoimmune Disorder: No (04/26/2016 16:26:Eden Hansen RN) Med Hx Kidney Disease/UTI: No (04/26/2016 16:26:Eden Hansen RN) Med Hx Neurologic/Epilepsy: No (04/26/2016 16:26:Eden Hansen RN) Med Hx Psychiatric Disorders: No (04/26/2016 16:26:Eden Hansen RN) Med Hx Hepatitis/Liver Disease: No (04/26/2016 16:26:Eden Hansen RN) Med Hx Varicosities/Phlebitis: No (04/26/2016 16:26:Eden Hansen RN) Med Hx Thyroid Dysfunction: No (04/26/2016 16:26:Eden Hansen RN) Med Hx Trauma/Violence: No (04/26/2016 16:26:Eden Hansen RN) Med Hx Blood Transfusion: No (04/26/2016 16:26:Eden Hansen RN) Med Hx Pulmonary (Asthma,TB): No (04/26/2016 16:26:Eden Hansen RN) Med Hx Breast: No (04/26/2016 16:26:Eden Hansen RN) 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 (04/26/2016 16:26:Eden Hansen RN) Med Hx Hospitalization/Surgery: No (04/26/2016 16:26:Eden Hansen RN) Med Hx Anesthetic Complications: No (04/26/2016 16:26:Eden Hansen RN) Med Hx Abnormal Pap Smear: No (04/26/2016 16:26:Eden Hansen RN) Other Medical Diseases: No (04/26/2016 16:26:Eden Hansen RN) Med Hx Significant Family Hx: No (04/26/2016 16:26:Eden Hansen RN) INFECTIOUS HISTORY Inf Hx Gonorrhea: No (04/26/2016 16:26:Eden Hansen RN) Inf Hx Chlamydia: No (04/26/2016 16:26:Eden Hansen RN) Inf Hx Syphilis: No (04/26/2016 16:26:Eden Hansen RN) Inf Hx HIV/AIDS: No (04/26/2016 16:26:Eden Hansen RN) Inf Hx Human Papilloma Virus: No (04/26/2016 16:26:Eden Hansen RN) Inf Hx Pt/Partner Genital Herpes: No (04/26/2016 16:26:Eden Hansen RN) Inf Hx Tuberculosis/Exposure: No (04/26/2016 16:26:Eden Hansen RN) Inf Hx Hepatitis B,C: No (04/26/2016 16:26:Eden Hansen RN) Inf Hx Rash or Viral Illness: No (04/26/2016 16:26:Eden Hansen RN) GENETIC HISTORY Gen Hx Age >=35 at TOMASZ: No (04/26/2016 16:26:Eden Hansen RN) Gen Hx Thalassemia: No (04/26/2016 16:26:Eden Hansen RN) Gen Hx Congenital Heart Defect: No (04/26/2016 16:26:Eden Hansen RN) Gen Hx Neural Tube Defect: No (04/26/2016 16:26:Eden Hansen RN) Gen Hx Down's Syndrome: No (04/26/2016 16:26:Eden Hansen RN) Gen Hx Bayron-Sachs: No (04/26/2016 16:26:Eden Hansen RN) Gen Hx Hugh: No (04/26/2016 16:26:Eden Hansen RN) Gen Hx Familial Dysautonomia: No (04/26/2016 16:26:Eden Hansen RN) Gen Hx Sickle Cell Disease/Trait: No (04/26/2016 16:26:Eden Hansen RN) Gen Hx Hemophilia/Blood Disorder: No (04/26/2016 16:26:Eden Hansen RN) Gen Hx Muscular Dystrophy: No (04/26/2016 16:26:Eden Hansen RN) Gen Hx Cystic Fibrosis: No (04/26/2016 16:26:Eden Hansen RN) Gen Hx Huntingtons Chorea: No (04/26/2016 16:26:Eden Hansen RN) Gen Hx Mental Retardation/Autism: No (04/26/2016 16:26:Eden Hansen RN) Gen Hx Tested for Fragile X: No (04/26/2016 16:26:Eden Hansen RN) Gen Hx Other Inher/Chromosomal: No (04/26/2016 16:26:Eden Hansen RN) Gen Hx Maternal Metabolic DO: No (04/26/2016 16:26:Eden Hansen RN) Gen Hx Pt Father or FOB Defect: No (04/26/2016 16:26:Eden Hansen RN) Gen Hx Other Genetic History: No (04/26/2016 16:26:Eden Hansen RN) Gen Hx Drugs/Meds since LMP: No (04/26/2016 16:26:Eden Hansen RN)
--- NOTE | 2016-05-04 06:23 | L&D Current Admission ---
Current Admit Datetime Report Generated by CPN: 05/04/2016 06:00 ADMISSION INFORMATION Chief Complaint: sharp lower constant abdominal pain only on right side (04/26/2016 16:30:Eden Hansen RN)
--- NOTE | 2016-05-05 06:23 | L&D Current Admission ---
Current Admit Datetime Report Generated by CPN: 05/05/2016 06:00 ADMISSION INFORMATION Chief Complaint: sharp lower constant abdominal pain only on right side (04/26/2016 16:30:Eden Hansen RN)
--- NOTE | 2016-05-05 06:23 | L&D General Admission ---
General Admit Datetime Report Generated by CPN: 05/05/2016 06:00 INFORMATION Patient Age: 25 (04/26/2016 16:12:QS system process) EDC: 05/20/2016 00:00 (04/26/2016 16:26:Kandace Galvan RN) : 3 (04/26/2016 16:26:Kandace Galvan RN) Para: 1 (04/26/2016 19:07:Eden Hansen RN) Livin (04/26/2016 16:26:Kandace Galvan RN) Baby, Number in Womb: 1 (04/26/2016 19:07:Eden Hansen RN) CARE Primary Concrete Form Setter: [facility] (04/26/2016 16:26:Kandace Galvan RN) Prepregnancy Weight (lb): 155 (04/26/2016 16:26:Kandace Galvan RN) Prepregnancy Weight (kg): 70.5 (04/26/2016 16:26:QS system process) Height (in): 61 (04/26/2016 16:40:QS system process) ALLERGIES Medication Allergy: No (04/26/2016 16:26:Eden Hansen RN) Medication Allergies: No Known Allergies (04/26/2016) (04/26/2016 16:24:QS system process) Latex Allergy: No Latex Allergies (04/26/2016 16:26:Eden Hansen RN) DEMOGRAPHICS Address: [address] [place] [address] [place] [address] (04/26/2016 16:12:QS system process) Zipcode: [phone] (04/26/2016 16:12:QS system process) Home (04/26/2016 16:12:QS system process) SSN: [id number] (04/26/2016 16:12:QS system process) Next of Kin Name: SHALONDA BRAVO (04/26/2016 16:12:QS system process) Next of Kin (04/26/2016 16:12:QS system process) Next of Kin Relationship: MO (04/26/2016 16:12:QS system process) Date of : 1990 (04/26/2016 16:12:QS system process) Marital Status: Single (04/26/2016 16:12:QS system process) Sex: Female (04/26/2016 16:12:QS system process) Race: (04/26/2016 16:12:QS system process) Ethnicity: Non- or (04/26/2016 16:12:QS system process) Catholic: Other (04/26/2016 16:12:QS system process) DRUG AND ALCOHOL USE Alcohol: No (04/26/2016 16:26:Eden Hansen RN) Marijuana: No (04/26/2016 16:26:Eden Hansen RN) Cocaine: No (04/26/2016 16:26:Eden Hansen RN) Other Illicit Drugs: No (04/26/2016 16:26:Eden Hansen RN) Pain Management Plans: Epidural (04/26/2016 16:26:Eden Hansen RN) Plans for Labor and Delivery: None (04/26/2016 16:26:Eden Hansen RN) LABS Blood Type: A Positive (04/26/2016 16:26:Kandace Galvan RN) Antibody Screen: Negative (04/26/2016 16:26:Kandace Galvan RN) Gonorrhea: Negative (04/26/2016 16:26:Kandace Galvan RN) Chlamydia: Negative (04/26/2016 16:26:Kandace Galvan RN) RPR/VDRL: Nonreactive (04/26/2016 16:26:Kandace Galvan RN) HIV Exposure Test: Negative (04/26/2016 16:26:Kandace Galvan RN) Hepatitis B: Negative (04/26/2016 16:26:Kandace Galvan RN) Rubella: Non-Immune (04/26/2016 16:26:Kandace Galvan RN) OB/PREVIOUS HISTORY Previous Procedures: Ultrasound; NST (04/26/2016 16:26:Eden Hansen RN) Current Procedures: Ultrasound; NST (04/26/2016 16:26:Eden Hansen RN) History of Previous : No (04/26/2016 16:26:Eden Hansen RN) History of Gestational Diabetes: No (04/26/2016 16:26:Eden Hansen RN) History of PIH: No (04/26/2016 16:26:Eden Hansen RN) History of Incompetent Cervix: No (04/26/2016 16:26:Eden Hansen RN) History of Placenta Previa/Abrup: No (04/26/2016 16:26:Eden Hansen RN) History of Macrosomia: No (04/26/2016 16:26:Eden Hansen RN) History of IUGR: No (04/26/2016 16:26:Eden Hansen RN) History of Hemorrhage: No (04/26/2016 16:26:Eden Hansen RN) History of Loss/Stillborn: No (04/26/2016 16:26:Eden Hansen RN) History of : No (04/26/2016 16:26:Eden Hansen RN) History of D (Rh) Sensitization: No (04/26/2016 16:26:Eden Hansen RN) History Recurrent Loss/Stillborn: No (04/26/2016 16:26:Eden Hansen RN) History Depression/PP Depression: No (04/26/2016 16:26:Eden Hansen RN) History of Uterine Anomaly/BK: No (04/26/2016 16:26:Eden Hansen RN) History of Infertility: No (04/26/2016 16:26:Eden Hansen RN) History of ART Treatment: No (04/26/2016 16:26:Eden Hansen RN) History of BK: No (04/26/2016 16:26:Eden Hansen RN) Comments Obstetrical History: 2012 40.4 weeks G2: current (04/26/2016 16:26:Eden Hansen RN) MEDICAL HISTORY Med Hx Diabetes: No (04/26/2016 16:26:Eden Hansen RN) Med Hx Hypertension: No (04/26/2016 16:26:Eden Hansen RN) Med Hx Heart Disease: No (04/26/2016 16:26:Eden Hansen RN) Med Hx Autoimmune Disorder: No (04/26/2016 16:26:Eden Hansen RN) Med Hx Kidney Disease/UTI: No (04/26/2016 16:26:Eden Hansen RN) Med Hx Neurologic/Epilepsy: No (04/26/2016 16:26:Eden Hansen RN) Med Hx Psychiatric Disorders: No (04/26/2016 16:26:Eden Hansen RN) Med Hx Hepatitis/Liver Disease: No (04/26/2016 16:26:Eden Hansen RN) Med Hx Varicosities/Phlebitis: No (04/26/2016 16:26:Eden Hansen RN) Med Hx Thyroid Dysfunction: No (04/26/2016 16:26:Eden Hansen RN) Med Hx Trauma/Violence: No (04/26/2016 16:26:Eden Hansen RN) Med Hx Blood Transfusion: No (04/26/2016 16:26:Eden Hansen RN) Med Hx Pulmonary (Asthma,TB): No (04/26/2016 16:26:Eden Hansen RN) Med Hx Breast: No (04/26/2016 16:26:Eden Hansen RN) Med Hx PATENT CHEMIST Surgery: No (04/26/2016 16:26:Eden Hansen RN) Med Hx Hospitalization/Surgery: No (04/26/2016 16:26:Eden Hansen RN) Med Hx Anesthetic Complications: No (04/26/2016 16:26:Eden Hansen RN) Med Hx Abnormal Pap Smear: No (04/26/2016 16:26:Eden Hansen RN) Other Medical Diseases: No (04/26/2016 16:26:Eden Hansen RN) Med Hx Significant Family Hx: No (04/26/2016 16:26:Eden Hansen RN) INFECTIOUS HISTORY Inf Hx Gonorrhea: No (04/26/2016 16:26:Eden Hansen RN) Inf Hx Chlamydia: No (04/26/2016 16:26:Eden Hansen RN) Inf Hx Syphilis: No (04/26/2016 16:26:Eden Hansen RN) Inf Hx HIV/AIDS: No (04/26/2016 16:26:Eden Hansen RN) Inf Hx Human Papilloma Virus: No (04/26/2016 16:26:Eden Hansen RN) Inf Hx Pt/Partner Genital Herpes: No (04/26/2016 16:26:Eden Hansen RN) Inf Hx Tuberculosis/Exposure: No (04/26/2016 16:26:Eden Hansen RN) Inf Hx Hepatitis B,C: No (04/26/2016 16:26:Eden Hansen RN) Inf Hx Rash or Viral Illness: No (04/26/2016 16:26:Eden Hansen RN) GENETIC HISTORY Gen Hx Age >=35 at TOMASZ: No (04/26/2016 16:26:Eden Hansen RN) Gen Hx Thalassemia: No (04/26/2016 16:26:Eden Hansen RN) Gen Hx Congenital Heart Defect: No (04/26/2016 16:26:Eden Hansen RN) Gen Hx Neural Tube Defect: No (04/26/2016 16:26:Eden Hansen RN) Gen Hx Down's Syndrome: No (04/26/2016 16:26:Eden Hansen RN) Gen Hx Bayron-Sachs: No (04/26/2016 16:26:Eden Hansen RN) Gen Hx Hugh: No (04/26/2016 16:26:Eden Hansen RN) Gen Hx Familial Dysautonomia: No (04/26/2016 16:26:Eden Hansen RN) Gen Hx Sickle Cell Disease/Trait: No (04/26/2016 16:26:Eden Hansen RN) Gen Hx Hemophilia/Blood Disorder: No (04/26/2016 16:26:Eden Hansen RN) Gen Hx Muscular Dystrophy: No (04/26/2016 16:26:Eden Hansen RN) Gen Hx Cystic Fibrosis: No (04/26/2016 16:26:Eden Hansen RN) Gen Hx Huntingtons Chorea: No (04/26/2016 16:26:Eden Hansen RN) Gen Hx Mental Retardation/Autism: No (04/26/2016 16:26:Eden Hansen RN) Gen Hx Tested for Fragile X: No (04/26/2016 16:26:Eden Hansen RN) Gen Hx Other Inher/Chromosomal: No (04/26/2016 16:26:Eden Hansen RN) Gen Hx Maternal Metabolic DO: No (04/26/2016 16:26:Eden Hansen RN) Gen Hx Pt Father or FOB Defect: No (04/26/2016 16:26:Eden Hansen RN) Gen Hx Other Genetic History: No (04/26/2016 16:26:Eden Hansen RN) Gen Hx Drugs/Meds since LMP: No (04/26/2016 16:26:Eden Hansen RN)
== END 2016-04-26 19:20 | disposition home or self-care (01) ==
LOC: LC 16:12
PROVIDERS: ATTEND Obstetrics & Gynecology
PROC: 4A1HXCZ Monitoring of Products of Conception, Cardiac Rate, External Approach (ICD-10-PCS; principal; 2016-04-26)
DX: O26.893 Other specified pregnancy related conditions, third trimester (principal); R10.30 Lower abdominal pain, unspecified; M54.5 Low back pain; Z3A.36 36 weeks gestation of pregnancy
CPT/HCPCS: 59025; 81001; 76770; 76705; G0479; 80307

== ENCOUNTER 2016-05-24 18:00 | Outpatient (CLI) | payer OTHER ==
[2016-05-24 18:41] LABS: APPEARANCE,URINE CLEAR; BILIRUBIN,URINE NEGATIVE (NEGATIVE); GLUCOSE, URINE NEGATIVE (NEGATIVE); KETONES,URINE NEGATIVE (NEGATIVE); LEUKOCYTE ESTERASE,URINE NEGATIVE (NEGATIVE); NITRITE,URINE NEGATIVE (NEGATIVE); PROTEIN,URINE NEGATIVE (NEGATIVE); URINE SPECIFIC GRAVITY 1.002; UROBILINOGEN,URINE NEGATIVE mg/dL (<2.0)
[2016-05-24 18:56] LABS: URINE BARBITURATES SCREEN NEGATIVE; URINE METHADONE SCREEN NEGATIVE; URINE OPIATES LOW NEGATIVE; URINE PHENCYCLIDINE SCREEN NEGATIVE
--- NOTE | 2016-05-24 19:17 | Non Stress Test Report ---
Non Stress Test Datetime Report Generated by CPN: 05/24/2016 19:17 DEMOGRAPHIC EGA NST: 40.4 INDICATION Indication for Study: Decreased Movement MONITORING Monitor Explained: Monitor Explained; Test Explained; Patient Verbalized Understanding Time on Monitor: 05/24/2016 18:18 Time off Monitor: 05/24/2016 19:12 NST Duration: 54 NST INTERVENTIONS NST Interventions: PO Hydration; Reposition Patient BABY A: [id number] BABY A Movement : Present Contraction Frequency : irregular FHR Baseline : 125 Accelerations : 15X15 Decelerations : None Variability : Moderate 6-25bpm NST Review: Meets Criteria for Reactive NST NST Review and Verified By : Hunter Pan RN NST Results: Reactive NST REPORT Report Trigger: Send Report
== END 2016-05-24 19:21 | disposition home or self-care (01) ==
LOC: LC 18:00
PROVIDERS: ATTEND Student in an Organized Health Care Education/Training Program
PROC: 4A1HXCZ Monitoring of Products of Conception, Cardiac Rate, External Approach (ICD-10-PCS; principal; 2016-05-24)
DX: O48.0 Post-term pregnancy (principal); Z3A.40 40 weeks gestation of pregnancy
CPT/HCPCS: 59025; 80307; 81005

== ENCOUNTER 2016-05-27 06:29 | Inpatient (IN) | payer OTHER ==
[2016-05-27] MEDS ORDERED: OXYTOCIN/NORMAL SALINE 1,000 ML IV PRN ×2 (06:38→16:52)
[2016-05-27] MEDS ORDERED: RINGERS SOLUTION,LACTATED 1,000 ML IV PRN (06:38)
[2016-05-27 07:28] LABS: HEMATOCRIT 34.4 % (36.0-47.0); HEMOGLOBIN 11.4 g/dL (12.0-15.5); HGB HCT DIFFERENCE -0.2; MEAN CORPUSCULAR HEMOGLOBIN 25.9 pg (27.0-33.4); MEAN CORPUSCULAR HGB CONC 33.1 g/dL (32.0-36.0); MEAN CORPUSCULAR VOLUME 78 fl (80-97); RED CELL DISTRIBUTION WIDTH 19.9 % (11.5-14.0); WHITE BLOOD COUNT 8.5 10^3/uL (4.0-10.5)
[2016-05-27 07:33] LABS: APPEARANCE,URINE CLEAR; BILIRUBIN,URINE NEGATIVE (NEGATIVE); GLUCOSE, URINE NEGATIVE (NEGATIVE); KETONES,URINE NEGATIVE (NEGATIVE); LEUKOCYTE ESTERASE,URINE MODERATE (NEGATIVE); NITRITE,URINE NEGATIVE (NEGATIVE); PROTEIN,URINE NEGATIVE (NEGATIVE); URINE SPECIFIC GRAVITY 1.004; UROBILINOGEN,URINE NEGATIVE mg/dL (<2.0)
[2016-05-27 07:53] LABS: BASOPHILS % (MANUAL) 0 % (0-2); EOSINOPHILS % (MANUAL) 2 % (0-6); LYMPHOCYTES % (MANUAL) 22 % (13-45); TOTAL CELLS COUNTED 100
[2016-05-27 07:54] LABS: URINE BARBITURATES SCREEN NEGATIVE; URINE METHADONE SCREEN NEGATIVE; URINE OPIATES LOW NEGATIVE; URINE PHENCYCLIDINE SCREEN NEGATIVE
[2016-05-27 07:59] LABS: ANISOCYTOSIS 2+; MICROCYTOSIS SLIGHT
--- NOTE | 2016-05-27 08:01 | L&D Flow Sheet ---
LD Flowsheet Datetime Report Generated by CPN: 05/27/2016 08:00 Datetime: 05/27/2016 07:46 Monitor Interventions for UA: [place] Adjusted (Chantelle Lozano RN) Monitor Mode: External US (Chantelle Lozano, RN) Monitor Interventions for FHR: Ultrasound Adjusted (Chantelle Lozano, RN) FHR Baseline Rate : 120 (Chantelle Lozano, DONNA) Variability: Moderate 6-25 bpm (Chantelle Lozano, RN) Accelerations: 15X15 (Chantelle Lozano, RN) Decelerations: None (Chantelle Lozano, RN) Pain Scale: 0 (Chantelle Lozano, RN) Pain Presence: None/Denies (Chantelle Lozano, DONNA) Pain Type: N/A (Chantelle Lozano, DONNA) Pain Goal: 1 (Chantelle Lozano, DONNA) Pain Relief Measures: Comfort Measures (Chantelle Lozano, RN) Vaginal Bleeding: None (Chantelle Lozano, RN) Level of Consciousness: Fully Conscious (Chantelle Lozano, DONNA) DTR's/Clonus: DTRs 2+; No Clonus (Chantelle Lozano, RN) Headache: Denies (hCantelle Lozano, RN) Breath Sounds, Left: Clear and Equal (Chantelle Lozano, RN) Breath Sounds, Right: Clear and Equal (Chantelle Lozano, RN) Nausea/Vomiting: Denies (Chantelle Lozano, RN) RUQ Epigastric Pain: Denies (Chantelle Lozano, RN) IV/Blood Work: IV Infusing per Order (Chantelle Lozano, RN) Oxygen Method: Room Air (Chantelle Lozano, RN) Patient Position/Activity: Left Tilt; Semi-Fowlers (Chantelle Lozano, RN) Comfort Measures: Breathing/Relaxation; Family Support (Chantelle Lozano, RN) I/O Interventions: Clear Liquids Given (Chantelle Lozano, RN) Instructional Method: Verbal; Written; Family/Support Person Instructed; Verbalized Understanding (Chantelle Lozano, RN) Plan of Care: Plan of Care Discussed; Vaginal Delivery; Labor; Induction (Chantelle Lozano, RN) Unit Routine: [place] to Room; Call [place]; Bed; Visiting Policy; Waiting Areas; Infant Security; Phone/Cell Phone Use; Photography; Unit Personnel; Consents Signed; Handwashing; Flu/Illness Precautions; Monitoring; IV Pumps; Safety/Fall Risk Prevention; Diet/Nutrition Services; Bathroom Privileges; Routine Time Outs; Medications (Chantelle Lozano, RN) Labor/Induction: Labor Stages; Augmentation; Induction; Artificial Rupture of Membranes; Interventions; Activity; Pushing Methods (Chantelle Lozano, RN) Pain Management: IV Narcotics; Epidural; PRN Medications; Pain Scale/Goals; Comfort Measures (Chantelle Lozano, RN) Medications: IV Narcotics; Pitocin (Chantelle Lozano, RN) PTL/PROM: Hydration; Signs/Symptoms of Infection; Expected Outcomes (Chantelle Lozano, RN) Related: Common Discomforts of ; Maternal Physical Changes; Maternal Emotional Changes; Nutrition; Hydration; Activity and Rest (Chantelle Lozano, RN) LaborFlag: Antepartum (QS system process) Datetime: 05/27/2016 07:42 IV/Blood Work: IV Started; IV Bolus Started; New IV Bag Hung; IV Bag Number @ 1 (Chantelle Lozano RN) Procedures: Consents Signed (Chantelle Lozano RN) Patient Position/Activity: Left Tilt; Semi-Fowlers (Chantelle Lozano RN) Datetime: 05/27/2016 07:12 IV/Blood Work: Labs Drawn (Madalyn Choi RN) Datetime: 05/27/2016 07:02 NBP Sys/Shelbi/Mean (mmHg): 96 (QS system process) : 53 (QS system process) : 71 (QS system process) Pulse: 88 (QS system process) LaborFlag: Antepartum (QS system process)
[2016-05-27] MEDS ORDERED: OXYTOCIN/NORMAL SALINE 0 UNIT/0 ML RTUINJ ONE (08:32)
--- NOTE | 2016-05-27 10:00 | L&D Flow Sheet ---
LD Flowsheet Datetime Report Generated by CPN: 05/27/2016 10:00 Datetime: 05/27/2016 09:35 Patient Position/Activity: patient resting (Chantelle [place], RN) Datetime: 05/27/2016 09:30 Monitor Mode: External (Chantelle [place], RN) Frequency (min): x2 (Chantelle Blake, RN) Quality: Mild (Chantelle Blake, RN) Duration (sec): 60/90 (Chantelle Gardend[place], RN) Duration Criteria: Less than Two 120 Second Contractions (Chantelle Lozano, DONNA) Pattern: Normal: <= 5 Contractions in 10 Minutes (Chantelle Lozano, DONNA) Resting Tone (Palpate): Relaxed (Chantelle Lozano, DONNA) Contraction Comments: irregular pattern (Chantelle Lozano RN) Monitor Mode: External US (Chantelle Lozano, DONNA) FHR Baseline Rate : 120 (Chantelle Lozano, RN) FHR Baseline Changes: No Baseline Change (Chantelle Lozano, DNONA) Variability: Moderate 6-25 bpm (Chantelle Lozano, RN) Accelerations: 15X15 (Chantelle Lozano, RN) Decelerations: None (Chantelle Lozano, ODNNA) Pitocin (milliunit): Pitocin Increased to (milliunits) @ (Annotations: 4) (Chantelle Lozano, DONNA) Datetime: 05/27/2016 09:15 Monitor Mode: External (Chantelle Lozano, DONNA) Monitor Interventions for UA: [place] Adjusted (Chantelle Lozano, DONNA) Frequency (min): x1 (Chantelle Lozano, DONNA) Quality: Mild (Chantelle Lozano RN) Duration (sec): 60 (Chantelle Lozano, DONNA) Duration Criteria: Less than Two 120 Second Contractions (Chantelle Lozano, DONNA) Pattern: Normal: <= 5 Contractions in 10 Minutes (Chantelle Lozano, DONNA) Resting Tone (Palpate): Relaxed (Chantelle Lozano RN) Monitor Mode: External US (Chantelle Lozano, DONNA) FHR Baseline Rate : 120 (Chantelle Lozano, RN) FHR Baseline Changes: No Baseline Change (Chantelle Lozano, DONNA) Variability: Moderate 6-25 bpm (Chantelle Lozano, RN) Accelerations: 15X15 (Chantelle Lozano RN) Decelerations: None (Chantelle Lozano RN) Pitocin (milliunit): Pitocin Remains (milliunits) @ (Annotations: 2) (Chantelle Lozano RN) Datetime: 05/27/2016 09:00 Monitor Mode: External (Chantelle Lozano, DONNA) Frequency (min): x2 (Chantelle Lozano, DONNA) Quality: Mild (Chantelle Lozano RN) Duration (sec): 90/100 (Chantelle Lozano, DONNA) Duration Criteria: Less than Two 120 Second Contractions (Chantelle Lozano RN) Pattern: Normal: <= 5 Contractions in 10 Minutes (Chantelle Lozano RN) Resting Tone (Palpate): Relaxed (Chantelle Lozano RN) Monitor Mode: External US (Chantelle Lozano, DONNA) FHR Baseline Rate : 120 (Chantelle Lozano RN) FHR Baseline Changes: No Baseline Change (Chantelle Lozano RN) Variability: Moderate 6-25 bpm (Chantelle Lozano RN) Accelerations: 15X15 (Chantelle Lozano RN) Decelerations: None (Chantelle Lozano, DONNA) Comments: reports positive movement; audible movement noted (Chantelle Lozano RN) Pitocin (milliunit): Pitocin Remains (milliunits) @ (Annotations: 2) (Chantelle Lozano RN) Patient Position/Activity: Left Tilt; High Fowlers; Tailors (Chantelle Lozano, DONNA) Datetime: 05/27/2016 08:48 Pitocin (milliunit): Pitocin Started (milliunits) @ 2 ([facility]) Pitocin (milliunit): Pitocin Started (milliunits) @ 2 (Chantelle Blake, ) Datetime: 05/27/2016 08:45 Stage of : [facility] NBP Sys/Shelbi/Mean (mmHg): 101 (QS system process) : 59 (QS system process) : 76 (QS system process) Pulse: 91 (QS system process) Respirations: 14 (Chantelle Lozano ) LaborFlag: Labor (QS system process) Datetime: 05/27/2016 08:30 Monitor Mode: External; Palpation (Chantelle Lozano, DONNA) Monitor Interventions for UA: [place] Adjusted (Chantelle Lozano, DONNA) Frequency (min): none (Chantelle Lozano, DONNA) Resting Tone (Palpate): Relaxed (Chantelle Lozano, DONNA) Contraction Comments: patient denies (Chantelle Lozano, DONNA) Monitor Mode: External US (Chantelle Lozano, DONNA) FHR Baseline Rate : 120 (Chantelle Lozano, DONNA) FHR Baseline Changes: No Baseline Change (Chantelle Lozano, DONNA) Variability: Moderate 6-25 bpm (Chantelle Lozano, RN) Accelerations: 15X15 (Chantelle Lozano, DONNA) Decelerations: None (Chantelle Lozano, DONNA) Comments: patient off monior while using restroom; provider aware (Chantelle Lozano RN) Datetime: 05/27/2016 08:19 I/O Interventions: Up to BR (Chantelle Lozano, DONNA) Datetime: 05/27/2016 08:15 Dilatation (cm): 3.0 (Chantelle Lozano RN) Effacement (%): 50 (Chantelle Lozano RN) Station: -2 (Chantelle Lozano RN) Exam by: Joyce Sykes CNM (Chantelle Lozano RN) Membrane Status: Ruptured (Chantelle Lozano RN) Membranes Rupture Method: Artificial (Chantelle Lozano RN) Amniotic Fluid Color: Clear (Chantelle Lozano RN) Amniotic Fluid Amount: Small (Chantelle Lozano RN) Amniotic Fluid Odor: Normal (Chantelle Lozano RN) Vaginal Bleeding: None (Chantelle Lozano RN) Cervix, Consistency: Soft (Chantelle Lozano RN) Cervix, Position: Midposition (Chantelle Lozano RN) Datetime: 05/27/2016 08:12 Provider Reviewed Strip: Yes (Chantelle Lozano RN) Communication: RN at Bedside; RN Reviewed Strip; Provider at Bedside (Chantelle Lozano RN) Provider Notified (Name): Joyce Sykes CNM at bedside assessing patient (Chantelle Lozano RN) Datetime: 05/27/2016 08:00 Monitor Mode: External (Chantelle Lozano RN) Frequency (min): x2 (Chantelle Lozano RN) Quality: Mild (Chantelle Lozano RN) Duration (sec): 120/150 (Chantelle Lozano, DONNA) Duration Criteria: Less than Two 120 Second Contractions (Chantelle Lozano RN) Resting Tone (Palpate): Relaxed (Chantelle Lozano RN) Monitor Mode: External US (Chantelle Lozano RN) FHR Baseline Rate : 120 (Chantelle Lozano RN) FHR Baseline Changes: No Baseline Change (Chantelle Lozano, DONNA) Variability: Moderate 6-25 bpm (Chantelle Lozano, DONNA) Accelerations: 15X15 (Chantelle Lozano, DONNA) Decelerations: None (Chantelle Lozano RN)
--- NOTE | 2016-05-27 12:01 | L&D Flow Sheet ---
LD Flowsheet Datetime Report Generated by CPN: 05/27/2016 12:00 Datetime: 05/27/2016 11:42 Comfort Measures: Rocking Chair; Family Support (Chantelle Blake, RN) Datetime: 05/27/2016 11:37 I/O Interventions: Up to BR (Chantelle [place], RN) Datetime: 05/27/2016 11:34 NBP Sys/Shelbi/Mean (mmHg): 110 (QS system process) : 60 (QS system process) : 79 (QS system process) Pulse: 83 (QS system process) LaborFlag: Labor (QS system process) Datetime: 05/27/2016 11:30 Monitor Mode: External (Chantelle Lozano RN) Frequency (min): 2-3.5 (Chantelle Lozano RN) Quality: Moderate (Chantelle Lozano RN) Duration (sec): 60-90 (Chantelle Lozano RN) Duration Criteria: Less than Two 120 Second Contractions (Chantelle Lozano RN) Pattern: Normal: <= 5 Contractions in 10 Minutes (Chantelle Lozano RN) Resting Tone (Palpate): Relaxed (Chantelle Lozano RN) Monitor Mode: External US (Chantelle Lozano RN) FHR Baseline Rate : 115 (Chantelle Lozano RN) FHR Baseline Changes: No Baseline Change (Chantelle Lozano RN) Variability: Minimal - Undetectable to <=5 bpm (Chantelle Lozano RN) Accelerations: None (Chantelle Lozano RN) Decelerations: None (Chantelle Lozano RN) Actions for Decelerations: Provider Reviewed Strip; Provider Notified (Chantelle Lozano RN) Comments: Joyce Sykes CNM on unit; reviewed strip (Chantelle Lozano, DONNA) Datetime: 05/27/2016 11:26 IV/Blood Work: IV Infusing per Order (Chantelle Lozano RN) Patient Position/Activity: Right Tilt; High Fowlers; Tailors (Chantelle Lozano, DONNA) Datetime: 05/27/2016 11:22 Stage of : Labor (Chantelle Lozano RN) Pain Scale: 3 (Chantelle Lozano RN) Pain Presence: Intermittent (Chantelle Lozano RN) Pain Type: Contraction (Chantelle Lozano RN) Pain Location: Abdomen (Chantelle Lozano RN) Pain Goal: 1 (Chantelle Lozano RN) Pain Relief Measures: Comfort Measures (Chantelle Lozano RN) Pain Coping: Breathing Through Contractions; Declines Medication or Epidural (Chantelle Lozano RN) LaborFlag: Labor (QS system process) Datetime: 05/27/2016 11:15 Monitor Mode: External (Chantelle Lozano, RN) Frequency (min): 2.5-3 (Chantelle Lozano, RN) Quality: Mild/Moderate (Chantelle Bentonard, RN) Duration (sec): 60-100 (Chantelle Lozano, RN) Duration Criteria: Less than Two 120 Second Contractions (Chantelle Lozano, RN) Pattern: Normal: <= 5 Contractions in 10 Minutes (Chantelle Lozano, RN) Resting Tone (Palpate): Relaxed (Cahntelle Lozano, RN) Monitor Mode: External US (Chantelle Lozano, RN) FHR Baseline Rate : 120 (Chantelle Lozano, RN) FHR Baseline Changes: No Baseline Change (Chantelle Lozano, RN) Variability: Moderate 6-25 bpm (Chantelle [place], RN) Accelerations: 15X15 (Chantelle Abb[place], RN) Decelerations: None (Chantelle Lozano, RN) Pitocin (milliunit): Pitocin Remains (milliunits) @ (Annotations: 8) (Chantelle Lozano, RN) Datetime: 05/27/2016 11:01 Stage of : Labor (Chantelle Lozano, RN) Temperature (F): 98.2 (Chantelle Blake, RN) Temperature (C): 36.8 (QS system process) Temperature Route: Oral (Chantelle Lozano RN) LaborFlag: Labor (QS system process) Datetime: 05/27/2016 11:00 Monitor Mode: External (Chantelle Lozano, DONNA) Frequency (min): 2-4 (Chantelle Lozano, DONNA) Quality: Mild/Moderate (Chantelle Lozano, DONNA) Duration (sec): 70-120 (Chantelle Lozano, DONNA) Duration Criteria: Less than Two 120 Second Contractions (Chantelle Lozano, RN) Pattern: Normal: <= 5 Contractions in 10 Minutes (Chantelle Lozano, RN) Resting Tone (Palpate): Relaxed (Chantelle Lozano, DONNA) Monitor Mode: External US (Chantelle Lozano, DONNA) FHR Baseline Rate : 120 (Chantelle Lozano RN) FHR Baseline Changes: No Baseline Change (Chantelle Lozano, DONNA) Variability: Moderate 6-25 bpm (Chantelle Lozano, RN) Accelerations: 15X15 (Chantelle Lozano, RN) Decelerations: None (Chantelle Lozano, RN) Pitocin (milliunit): Pitocin Increased to (milliunits) @ (Annotations: 8) (Chantelle Lozano, RN) Datetime: 05/27/2016 10:59 NBP Sys/Shelbi/Mean (mmHg): 108 (QS system process) : 64 (QS system process) : 80 (QS system process) Pulse: 78 (QS system process) Datetime: 05/27/2016 10:45 Monitor Mode: External (Chantelle Lozano, RN) Frequency (min): 2-3 (Chantelle Lozano, RN) Quality: Mild/Moderate (Chantelle Bentonard, RN) Duration (sec): 80-120 (Chantelle Lozano, RN) Duration Criteria: Less than Two 120 Second Contractions (Chantelle Lozano, RN) Pattern: Normal: <= 5 Contractions in 10 Minutes (Chantelle Lozano, RN) Resting Tone (Palpate): Relaxed (Chantelle Lozano, RN) Monitor Mode: External US (Chantelle Lozano, RN) FHR Baseline Rate : 125 (Chantelle Lozano, RN) FHR Baseline Changes: No Baseline Change (Chantelle Lozano, RN) Variability: Moderate 6-25 bpm (Chantelle [place], RN) Accelerations: 15X15 (Chantelle [place], RN) Decelerations: None (Chantelle Lozano, RN) Pitocin (milliunit): Pitocin Remains (milliunits) @ (Annotations: 6) (Chantelle Lozano, RN) Datetime: 05/27/2016 10:44 Stage of : Recovery (Chantelle Lozano, RN) NBP Sys/Shelbi/Mean (mmHg): 110 (QS system process) : 62 (QS system process) : 81 (QS system process) Pulse: 77 (QS system process) Respirations: 16 (Chantelle Lozano, RN) Datetime: 05/27/2016 10:40 Stage of : Labor (Chantelle Lozano, ) NBP Sys/Shelbi/Mean (mmHg): 126 (QS system process) : 60 (QS system process) : 87 (QS system process) Pulse: 81 (QS system process) Respirations: 14 (Chantelle Blake, ) LaborFlag: Labor (QS system process) Datetime: 05/27/2016 10:30 Monitor Mode: External; Palpation (Chantelle Lozano RN) Frequency (min): 3-3.5 (Chantelle Lozano RN) Quality: Mild/Moderate (Chantelle Lozano RN) Duration (sec): 60-90 (Chantelle Lozano RN) Duration Criteria: Less than Two 120 Second Contractions (Chantelle Lozano RN) Pattern: Normal: <= 5 Contractions in 10 Minutes (Chantelle Lozano RN) Resting Tone (Palpate): Relaxed (Chantelle Lozano RN) Monitor Mode: External US (Chantelle Lozano RN) FHR Baseline Rate : 120 (Chantelle Lozano RN) FHR Baseline Changes: No Baseline Change (Chantelle Lozano RN) Variability: Moderate 6-25 bpm (Chantelle Lozano RN) Accelerations: 15X15 (Chantelle Lozano RN) Decelerations: None (Chantelle Lozano RN) Pitocin (milliunit): Pitocin Remains (milliunits) @ (Annotations: 6) (Chantelle Lozano RN) Communication: RN at Bedside (Chantelle Lozano RN) Datetime: 05/27/2016 10:27 Pain Scale: 2 (Chantelle Lozano RN) Pain Presence: Intermittent (Chantelle Lozano RN) Pain Type: Contraction (Chantelle Lozano RN) Pain Location: Abdomen (Chantelle Lozano RN) Pain Goal: 1 (Chantelle Lozano RN) Pain Relief Measures: Comfort Measures (Chantelle Lozano RN) Patient Position/Activity: High Fowlers; Tailors (Chantelle Lozano RN) Comfort Measures: Breathing/Relaxation; Family Support (Chantelle Lozano RN) LaborFlag: Labor (QS system process) Datetime: 05/27/2016 10:18 I/O Interventions: Up to BR (Chantelle Lozano RN) Datetime: 05/27/2016 10:15 Monitor Mode: External (Chantelle Lozano RN) Frequency (min): 3-3.5 (Chantelle Lozano RN) Quality: Mild (Chantelle Lozano RN) Duration (sec): 80-120 (Chantelle Lozano RN) Duration Criteria: Less than Two 120 Second Contractions (Chantelle Lozano RN) Pattern: Normal: <= 5 Contractions in 10 Minutes (Chantelle Lozano RN) Resting Tone (Palpate): Relaxed (Chantelle Lozano RN) Monitor Mode: External US (Chantelle Lozano RN) Monitor Interventions for FHR: Ultrasound Adjusted (Chantelle Lozano RN) FHR Baseline Rate : 115 (Chantelle Lozano RN) FHR Baseline Changes: No Baseline Change (Chantelle Lozano RN) Variability: Moderate 6-25 bpm (Chantelle Lozano RN) Accelerations: 10X10 (Chantelle Lozano RN) Decelerations: None (Chantelle Lozano RN) Comments: patient sitting up/forward (Chantelle Lozano RN) Pitocin (milliunit): Pitocin Increased to (milliunits) @ (Annotations: 6) (Chantelle Lozano RN) Datetime: 05/27/2016 10:00 Monitor Mode: External (Chantelle Lozano RN) Monitor Interventions for UA: Michie Adjusted (Chantelle Lozano RN) Frequency (min): 3-4 (Chantelle Lozano RN) Quality: Mild (Chantelle Lozano RN) Duration (sec): 80-120 (Chantelle Lozano RN) Duration Criteria: Less than Two 120 Second Contractions (Chantelle Lozano RN) Pattern: Normal: <= 5 Contractions in 10 Minutes (Chantelle Lozano RN) Resting Tone (Palpate): Relaxed (Chantelle Lozano RN) Monitor Mode: External US (Chantelle Lozano RN) FHR Baseline Rate : 120 (Chantelle Lozano RN) FHR Baseline Changes: No Baseline Change (Chantelle Lozano RN) Variability: Moderate 6-25 bpm (Chantelle Lozano RN) Accelerations: 15X15 (Chantelle Lozano RN) Decelerations: None (Chantelle Lozano RN) Pitocin (milliunit): Pitocin Remains (milliunits) @ (Annotations: 4) (Chantelle Lozano RN)
[2016-05-27] MEDS ORDERED: BENZOIN/ALOE VERA/STORAX/TOLU TINCTURE 60 ML TP PRN (12:39)
[2016-05-27] MEDS ORDERED: BUPIVACAINE HCL 0.25 % INJ/PF (2.5 MG/1 ML) 30 ML VIAL INFIL ONE (12:39)
[2016-05-27] MEDS ORDERED: OXYTOCIN/NORMAL SALINE 20 UNIT/1,000 ML RTUINJ ONE (12:44)
[2016-05-27] MEDS ORDERED: MISOPROSTOL 0.2 MG TABLET ONE (12:44)
[2016-05-27] MEDS ORDERED: EPHEDRINE SULFATE INJ 50 MG/1 ML AMPULE ONE (12:44)
[2016-05-27] MEDS ORDERED: FENTANYL/BUPIVACAINE/NS/PF 200 MCG/100 ML RTUINJ EPI ONE (12:44)
[2016-05-27] MEDS ORDERED: BUPIVACAINE HCL 0.25 % INJ/PF (2.5 MG/1 ML) 30 ML VIAL ONE (12:44)
[2016-05-27] MEDS ORDERED: LIDOCAINE 1% INJ-PF (10 MG/ML) 30 ML SDV ONE (12:44)
--- NOTE | 2016-05-27 12:48 | L&D Progress Notes ---
PROGRESS NOTES Datetime Report Generated by CPN: 05/27/2016 12:48 PROGRESS NOTE Impression: Normal Progression of Labor Procedures: Sterile Vag Exam Plan: Anesthesia Consult Comment: pt requesting epidural, pitocin infusing, fluid clear VAGINAL EXAM Dilatation: 5 Effacement: 60 Station: -1 MEMBRANES Membranes: Ruptured Amniotic Fluid Color: Clear FETUS A FHR - Baseline: 130 Variability: Moderate 6-25bpm Decelerations: None : 41.0 Presentation: Vertex SIGNATURE SIGNATURE: [id number] SIGNATURE: [id number] SIGNATURE: [id number] Assignment: Bj Reynolds DO Signature: with User ID: Michelle : with User ID: Michelle
--- NOTE | 2016-05-27 14:01 | L&D Flow Sheet ---
LD Flowsheet Datetime Report Generated by CPN: 05/27/2016 14:00 Datetime: 05/27/2016 13:57 Dilatation (cm): 7.0 (Chantelle Harrells, RN) Effacement (%): 90 (Chantelle Blake, RN) Station: 0 (Chantelle Harrells, RN) Exam by: Joyce Sykes CNM (Chantelle Blake, RN) Patient Position/Activity: Right Lateral; Low Fowlers (Chantelle Harrells, RN) Datetime: 05/27/2016 13:54 NBP Sys/Shelbi/Mean (mmHg): 94 (QS system process) : 51 (QS system process) : 67 (QS system process) Pulse: 81 (QS system process) LaborFlag: Labor (QS system process) Datetime: 05/27/2016 13:45 Monitor Mode: External (Chantelle Harrells, RN) Frequency (min): 2-3 (Chantelle Bentonard, RN) Quality: Moderate to Strong (Chantelle Harrells, RN) Duration (sec): 80-120 (Chantelle Harrells, RN) Duration Criteria: Less than Two 120 Second Contractions (Chantelle Harrells, RN) Pattern: Normal: <= 5 Contractions in 10 Minutes (Chantelle Harrells, RN) Resting Tone (Palpate): Relaxed (Chantelle Blake, RN) Monitor Mode: External US (Chantelle Bentonard, RN) FHR Baseline Rate : 120 (Chantelle Harrells, RN) FHR Baseline Changes: No Baseline Change (Chantelle Harrells, RN) Variability: Moderate 6-25 bpm (Chantelle Harrells, RN) Accelerations: 15X15 (Chantelle Harrells, RN) Decelerations: Early (Chantelle Blake, RN) Datetime: 05/27/2016 13:39 NBP Sys/Shelbi/Mean (mmHg): 92 (QS system process) : 51 (QS system process) : 66 (QS system process) Pulse: 89 (QS system process) LaborFlag: Labor (QS system process) Datetime: 05/27/2016 13:37 NBP Sys/Shelbi/Mean (mmHg): 103 (QS system process) : 55 (QS system process) : 73 (QS system process) Pulse: 81 (QS system process) LaborFlag: Labor (QS system process) Datetime: 05/27/2016 13:30 Monitor Mode: External (Chantelle Lozano RN) Monitor Interventions for UA: Poydras Adjusted (Chantelle Lozano RN) Frequency (min): 2-3 (Chantelle Lozano RN) Quality: Moderate to Strong (Chantelle Lozano RN) Duration (sec): 70-110 (Chantelle Lozano RN) Duration Criteria: Less than Two 120 Second Contractions (Chantelle Lozano RN) Pattern: Normal: <= 5 Contractions in 10 Minutes (Chantelle Lozano RN) Resting Tone (Palpate): Relaxed (Chantelle Lozano RN) Monitor Mode: External US (Chantelle Lozano RN) FHR Baseline Rate : 125 (Chantelle Lozano RN) FHR Baseline Changes: No Baseline Change (Chantelle Lozano RN) Variability: Moderate 6-25 bpm (Chantelle Lozano RN) Accelerations: 15X15 (Chantelle Lozano RN) Decelerations: Early; Variable (Chantelle Lozano RN) Communication: RN at Bedside (Chantelle Lozano RN) Datetime: 05/27/2016 13:24 Stage of : Labor (Chantelle Lozano RN) NBP Sys/Shelbi/Mean (mmHg): 105 (QS system process) : 59 (QS system process) : 77 (QS system process) Pulse: 76 (QS system process) Respirations: 12 (Chantelle Lozano RN) LaborFlag: Labor (QS system process) Datetime: 05/27/2016 13:22 NBP Sys/Shelbi/Mean (mmHg): 111 (QS system process) : 59 (QS system process) : 80 (QS system process) Pulse: 81 (QS system process) LaborFlag: Labor (QS system process) Datetime: 05/27/2016 13:21 NBP Sys/Shelbi/Mean (mmHg): 112 (QS system process) : 68 (QS system process) : 83 (QS system process) Pulse: 85 (QS system process) LaborFlag: Labor (QS system process) Datetime: 05/27/2016 13:20 NBP Sys/Shelbi/Mean (mmHg): 114 (QS system process) : 62 (QS system process) : 82 (QS system process) Pulse: 81 (QS system process) LaborFlag: Labor (QS system process) Datetime: 05/27/2016 13:19 NBP Sys/Shelbi/Mean (mmHg): 113 (QS system process) : 59 (QS system process) : 80 (QS system process) Pulse: 93 (QS system process) LaborFlag: Labor (QS system process) Datetime: 05/27/2016 13:18 NBP Sys/Shelbi/Mean (mmHg): 108 (QS system process) : 56 (QS system process) : 76 (QS system process) Pulse: 76 (QS system process) LaborFlag: Labor (QS system process) Datetime: 05/27/2016 13:17 NBP Sys/Shelbi/Mean (mmHg): 113 (QS system process) : 60 (QS system process) : 80 (QS system process) Pulse: 81 (QS system process) LaborFlag: Labor (QS system process) Datetime: 05/27/2016 13:16 NBP Sys/Shelbi/Mean (mmHg): 120 (QS system process) : 64 (QS system process) : 85 (QS system process) Pulse: 89 (QS system process) I/O Interventions: Sr Cath Inserted (Chantelle Lozano RN) Patient Care Comments: Sr catheter inserted using sterile technique. patient tolerated well. clear yellow urine noted (Chantelle Lozano RN) LaborFlag: Labor (QS system process) Datetime: 05/27/2016 13:15 NBP Sys/Shelbi/Mean (mmHg): 116 (QS system process) : 62 (QS system process) : 82 (QS system process) Pulse: 84 (QS system process) Monitor Mode: External (Chantelle Lozano RN) Frequency (min): 2-2.5 (Chantelle Lozano RN) Quality: Moderate to Strong (Chantelle Lozano RN) Duration (sec): 70-110 (Chantelle Lozano RN) Duration Criteria: Less than Two 120 Second Contractions (Chantelle Lozano RN) Pattern: Normal: <= 5 Contractions in 10 Minutes (Chantelle Lozano RN) Resting Tone (Palpate): Relaxed (Chantelle Lozano RN) Monitor Mode: External US (Chantelle Lozano RN) FHR Baseline Rate : 130 (Chantelle Lozano RN) FHR Baseline Changes: No Baseline Change (Chantelle Lozano RN) Variability: Moderate 6-25 bpm (Chantelle Lozano RN) Accelerations: 15X15 (Chantelle Lozano RN) Decelerations: None (Chantelle Lozano RN) Comments: patient sitting up for epidural placement (Chantelle Lozano RN) Epidural Procedure Other: Pump Started (Chantelle Lozano RN) Anesthesia Level Check: T10- Umbilicus (Chantelle Lozano RN) Communication: RN at Bedside (Chantelle Lozano RN) LaborFlag: Labor (QS system process) Datetime: 05/27/2016 13:14 NBP Sys/Shelbi/Mean (mmHg): 114 (QS system process) NBP Sys/Shelbi/Mean (mmHg): 120 (QS system process) : 59 (QS system process) : 57 (QS system process) : 82 (QS system process) Pulse: 81 (QS system process) Pulse: 80 (QS system process) LaborFlag: Labor (QS system process) Datetime: 05/27/2016 13:12 NBP Sys/Shelbi/Mean (mmHg): 119 (QS system process) : 63 (QS system process) : 82 (QS system process) Pulse: 88 (QS system process) LaborFlag: Labor (QS system process) Datetime: 05/27/2016 13:11 NBP Sys/Shelbi/Mean (mmHg): 114 (QS system process) : 66 (QS system process) : 82 (QS system process) Pulse: 86 (QS system process) LaborFlag: Labor (QS system process) Datetime: 05/27/2016 13:10 NBP Sys/Shelbi/Mean (mmHg): 126 (QS system process) : 69 (QS system process) : 88 (QS system process) Pulse: 85 (QS system process) LaborFlag: Labor (QS system process) Datetime: 05/27/2016 13:09 NBP Sys/Shelbi/Mean (mmHg): 117 (QS system process) : 64 (QS system process) : 84 (QS system process) Pulse: 81 (QS system process) Epidural Procedure: Loading Dose (Chantelle Lozano, RN) LaborFlag: Labor (QS system process) Datetime: 05/27/2016 13:08 NBP Sys/Shelbi/Mean (mmHg): 115 (QS system process) : 66 (QS system process) : 85 (QS system process) Pulse: 90 (QS system process) Epidural Procedure: Cath Placed (Chantelle Lozano, RN) Epidural Procedure: Test Dose (Chantelle Blake, RN) LaborFlag: Labor (QS system process) Datetime: 05/27/2016 13:06 Pulse: 93 (QS system process) SpO2 (%): 100 (QS system process) LaborFlag: Labor (QS system process) Datetime: 05/27/2016 13:05 Stage of : Labor (Chantelle Lozano RN) NBP Sys/Shelbi/Mean (mmHg): 127 (QS system process) : 71 (QS system process) : 94 (QS system process) Pulse: 86 (QS system process) Respirations: 14 (Chantelle Lozano RN) LaborFlag: Labor (QS system process) Datetime: 05/27/2016 13:03 Procedure Verify: Correct Patient Identity; Correct Side and Site are Marked; Accurate Procedure Consent Form; Agreement on Procedure to be Done; Correct Patient Position; Relevant Images and Results are Properly Labeled and Displayed; Addressed Need to Administer Antibiotics or Fluids for Irrigation; Safety Precautions Based on Patient History or Medication Use (Chantelle Lozano RN) Anesthesia Plans: Epidural (Chantelle Lozano RN) Epidural Positioning: Sitting (Chantelle Lozano RN) Datetime: 05/27/2016 13:02 Contraction Comments: toco removed for epidural (Chantelle Lozano RN) Comments: RN attempting to obtain continuous fht during epidural. Remains at bedside to assess fht and pt (Chantelle Lozano RN) Anesthesia Comments: Dr Harris at bedside to obtain consent for epidural. (Chantelle Lozano RN) Datetime: 05/27/2016 13:01 Procedure Verify: Correct Patient Identity; Correct Side and Site are Marked; Accurate Procedure Consent Form; Agreement on Procedure to be Done; Correct Patient Position; Relevant Images and Results are Properly Labeled and Displayed; Addressed Need to Administer Antibiotics or Fluids for Irrigation; Safety Precautions Based on Patient History or Medication Use (Chantelle Lozano RN) Anesthesia Plans: Epidural (Chantelle Lozano RN) Epidural Positioning: Sitting (Chantelle Lozano RN) Datetime: 05/27/2016 13:00 Stage of : Labor (Chantelle Lozano, DONNA) Temperature (F): 98.6 (Chantelle Lozano, DONNA) Temperature (C): 37.0 (QS system process) Temperature Route: Oral (Chantelle Lozano, DONNA) Monitor Mode: External (Chantelle Lozano, RN) Frequency (min): 2.5-3.5 (Chantelle Lozano, DONNA) Quality: Moderate to Strong (Chantelle Lozano, RN) Duration (sec): 60-120 (Chantelle Lozano, RN) Duration Criteria: Less than Two 120 Second Contractions (Chantelle Lozano, RN) Pattern: Normal: <= 5 Contractions in 10 Minutes (Chantelle Lozano, RN) Resting Tone (Palpate): Relaxed (Chantelle Lozano, RN) Monitor Mode: External US (Chantelle Lozano, RN) FHR Baseline Rate : 130 (Chantelle Lozano, RN) FHR Baseline Changes: No Baseline Change (Chantelle Lozano, RN) Variability: Moderate 6-25 bpm (Chantelle Lozano, RN) Accelerations: 15X15 (Chantelle Lozano, RN) Decelerations: None (Chantelle Lozano, RN) Comments: adible movement noted (Chantelle Lozano, DONNA) LaborFlag: Labor (QS system process) Datetime: 05/27/2016 12:45 Monitor Interventions for UA: Poydras Adjusted (Chantelle Lozano RN) Contraction Comments: unable to determine due to patient postion (Chantelle Lozano, DONNA) Monitor Mode: External US (Chantelle Lozano RN) FHR Baseline Rate : 125 (Chantelle Lozano RN) FHR Baseline Changes: No Baseline Change (Chnatelle Lozano RN) Variability: Moderate 6-25 bpm (Chantelle Lozano RN) Accelerations: 15X15 (Chantelle Lozano RN) Decelerations: None (Chantelle Lozano RN) Comments: maternal heart rate noted intermittently; epidural being placed (Chantelle Lozano RN) Datetime: 05/27/2016 12:41 NBP Sys/Shelbi/Mean (mmHg): 112 (QS system process) : 63 (QS system process) : 82 (QS system process) Pulse: 79 (QS system process) LaborFlag: Labor (QS system process) Datetime: 05/27/2016 12:38 IV/Blood Work: IV Bolus Started (Chantelle Lozano RN) Datetime: 05/27/2016 12:37 Pain Scale: 4 (Chantelle Lozano RN) Pain Presence: Intermittent (Chantelle Lozano RN) Pain Type: Contraction (Chantelle Lozano RN) Pain Location: Abdomen (Chantelle Lozano RN) Pain Goal: 1 (Chantelle Lozano RN) Pain Relief Measures: Comfort Measures (Chantelle Lozano RN) Pain Coping: Requesting Pain Medication or Epidural (Chantelle Lozano RN) Pain Assessment Comments: Joyce Sykes CNM notified of patient increased pain and request for epidural. Orders received (Chantelle Lozano RN) LaborFlag: Labor (QS system process) Datetime: 05/27/2016 12:34 Dilatation (cm): 4.5 (Chantelle Lozano RN) Effacement (%): 60 (Chantelle Lozano RN) Station: -1 (Chantelle Lozano RN) Exam by: Joyce Sykes CNM (Chantelle Lozano RN) Vaginal Bleeding: None (Chantelle Lozano RN) Cervix, Consistency: Soft (Chantelle Lozano RN) Cervix, Position: Midposition (Chantelle Harrells, RN) Datetime: 05/27/2016 12:32 Provider Reviewed Strip: Yes (Chantelle Lozano RN) Communication: RN at Bedside; RN Reviewed Strip; Provider at Bedside (Chantelle Lozano RN) Provider Notified (Name): Joyce Sykes at bedside assessing patient (Chantelle Lozano RN) Datetime: 05/27/2016 12:30 Monitor Mode: External (Chantelle Lozano RN) Frequency (min): 3-3.5 (Chantelle Lozano RN) Quality: Moderate to Strong (Chantelle Lozano RN) Duration (sec): 100-120 (Chantelle Lozano RN) Duration Criteria: Less than Two 120 Second Contractions (Chantelle Lozano RN) Pattern: Normal: <= 5 Contractions in 10 Minutes (Chantelle Lozano RN) Resting Tone (Palpate): Relaxed (Chantelle Lozano RN) Monitor Mode: External US (Chantelle Lozano RN) FHR Baseline Rate : 125 (Chantelle Lozano RN) FHR Baseline Changes: No Baseline Change (Chantelle Lozano RN) Variability: Moderate 6-25 bpm (Chantelle Harrells, RN) Accelerations: 10X10 (Chantelle Lozano, RN) Decelerations: Early (Chantelle Bentonard, RN) Datetime: 05/27/2016 12:26 I/O Interventions: Up to BR (Chantelle Lozano, RN) Datetime: 05/27/2016 12:15 Frequency (min): 2-3.5 (Chantelle Lozano, DONNA) Quality: Moderate to Strong (Chantelle Lozano, RN) Duration (sec): 80-110 (Chantelle Lozano, RN) Duration Criteria: Less than Two 120 Second Contractions (Chantelle Lozano, RN) Pattern: Normal: <= 5 Contractions in 10 Minutes (Chantelle Lozano, RN) Resting Tone (Palpate): Relaxed (Chantelle Lozano, DONNA) Monitor Mode: External US (Chantelle Lozano, DONNA) FHR Baseline Rate : 125 (Chantelle Lozano, RN) FHR Baseline Changes: No Baseline Change (Chantelle Lozano, RN) Variability: Moderate 6-25 bpm (Chantelle Lozano, RN) Accelerations: 15X15 (Chantelle Lozano, RN) Decelerations: Early (Chantelle Lozano RN) Pitocin (milliunit): Pitocin Increased to (milliunits) @ (Annotations: 10) (Chantelle Lozano RN) Datetime: 05/27/2016 12:05 NBP Sys/Shelbi/Mean (mmHg): 111 (QS system process) : 59 (QS system process) : 82 (QS system process) Pulse: 85 (QS system process) LaborFlag: Labor (QS system process) Datetime: 05/27/2016 12:00 Monitor Mode: External (Chantelle Lozano RN) Frequency (min): 2.5-3 (Chantelle Lozano RN) Quality: Moderate (Chantelle Lozano RN) Duration (sec): 80-110 (Chantelle Lozano RN) Duration Criteria: Less than Two 120 Second Contractions (Chantelle Lozano RN) Pattern: Normal: <= 5 Contractions in 10 Minutes (Chantelle Lozano RN) Resting Tone (Palpate): Relaxed (Chantelle Lozano RN) Pitocin (milliunit): Pitocin Remains (milliunits) @ (Annotations: 8) (Chantelle Lozano RN)
[2016-05-27] MEDS ORDERED: IBUPROFEN 800 MG TABLET ONE (15:45)
--- NOTE | 2016-05-27 16:01 | L&D Flow Sheet ---
LD Flowsheet Datetime Report Generated by CPN: 05/27/2016 16:00 Datetime: 05/27/2016 15:54 NBP Sys/Shelbi/Mean (mmHg): 96 (QS system process) : 57 (QS system process) : 71 (QS system process) Pulse: 100 (QS system process) Datetime: 05/27/2016 15:51 Stage of : Recovery (Chantelle Blake, RN) Datetime: 05/27/2016 15:47 [facility] : [facility] Pain Scale: 2 [facility] Pain Presence: Intermittent ([facility]) Pain Type: Cramping ([facility]) Pain Location: Abdomen; Head ([facility]) Pain Goal: 1 ([facility], [facility]) Pain Relief Measures: Pain Medication Given; Comfort Measures ([facility]) Datetime: 05/27/2016 15:45 Stage of : Recovery ([facility] [place], ) Pain Scale: 2 ([facility]) Pain Presence: Intermittent ([facility]) Pain Type: Cramping ([facility]) Pain Location: Abdomen ([facility]) Pain Goal: 1 ([facility] [place], RN) Pain Relief Measures: Comfort Measures ([facility] [place], RN) Datetime: 05/27/2016 15:39 Stage of : Labor (Chantelle Lozano, RN) NBP Sys/Shelbi/Mean (mmHg): 105 (QS system process) : 59 (QS system process) : 74 (QS system process) Pulse: 93 (QS system process) Respirations: 16 (Chantelle Lozano, DONNA) LaborFlag: Labor (QS system process) Datetime: 05/27/2016 15:33 NBP Sys/Shelbi/Mean (mmHg): 129 (QS system process) : 58 (QS system process) : 83 (QS system process) Pulse: 105 (QS system process) Datetime: 05/27/2016 15:31 Stage of : Recovery (Chantelle Lozano, DONNA) Datetime: 05/27/2016 15:30 Stage of : Recovery (Chantelle [place], RN) Datetime: 05/27/2016 15:15 Stage of : Recovery (Chantelle [place], RN) Pain Scale: 2 (Chantelle [place], RN) Pain Presence: Intermittent (Chantelle [place], RN) Pain Type: Cramping (Chantelle [place], RN) Pain Location: Abdomen (Chantelle [place], RN) Pain Goal: 1 (Chantelle [place], RN) Pain Relief Measures: Comfort Measures (Chantelle [place], RN) Datetime: 05/27/2016 15:00 Stage of : Recovery (Constanza Camp, RNC) Pain Scale: 1 (Constanza Camp, RNC) Pain Presence: Intermittent (Constanza Camp, RNC) Pain Type: Cramping (Constanza Camp, RNC) Pain Location: Abdomen (Constanza Camp, RNC) Pain Goal: 1 (Constanza Camp, RNC) Pain Relief Measures: Comfort Measures (Constanza Camp, RNC) Datetime: 05/27/2016 14:44 Stage of : Recovery (Constanza Camp, RNC) Temperature (F): 98.3 (Constanza Camp, RNC) Temperature (C): 36.8 (QS system process) Temperature Route: Oral (Constanza Camp, RNC) Pain Scale: 1 (Constanza Camp, RNC) Pain Presence: Intermittent (Constanza Camp, RNC) Pain Type: Cramping (Constanza Camp, RNC) Pain Location: Abdomen (Constanza Camp, RNC) Pain Goal: 1 ([place], RNC) Pain Relief Measures: Comfort Measures (Constanza Camp, RNC) Datetime: 05/27/2016 14:43 Anesthesia Comments: epidural discontinued; pump off (Constanza Camp, RNC) Datetime: 05/27/2016 14:39 Pitocin (milliunit): Pitocin 20 Units in 1000ml NS (Constanza Camp, RNC) Medication Comments: Pitocin 20 units/1000 ml infusing at delivery of placenta (Constanza Camp, RNC) Datetime: 05/27/2016 14:30 Stage of : Labor (Constanza Camp, RNC) NBP Sys/Shelbi/Mean (mmHg): 101 (QS system process) : 51 (QS system process) : 73 (QS system process) Pulse: 80 (QS system process) Respirations: 18 (Constanza Camp, RNC) Stage 2 Comments: attempt to latch left breast (Constanza Camp, RNC) LaborFlag: Labor (QS system process) Datetime: 05/27/2016 14:24 NBP Sys/Shelbi/Mean (mmHg): 113 (QS system process) : 63 (QS system process) : 76 (QS system process) LaborFlag: Labor (QS system process) Datetime: 05/27/2016 14:22 Instructional Method: Verbal; Patient Instructed; Family/Support Person Instructed ([facility]) Teaching Comments: reviewed importance of skin to skin ([facility]) Stage 2 Comments: delivery liveborn male with spontaneous lusty cry noted. Placed on maternal abdomen, cord clamped after delay by FOB . Placed skin to skin on maternal chest ([facility]) Datetime: 05/27/2016 14:20 Pushing Progress: with Pushing (Constanza Camp, RNC) Datetime: 05/27/2016 14:19 Pushing Position: Pushing with Contractions; Pushing Lithotomy (Constanza Camp, RNC) Stage 2 Comments: pt screaming RN and provider remain at bedside with family member attempting to athletic coach (Constanza Camp, RNC) Datetime: 05/27/2016 14:18 I/O Interventions: Atwood Discontinued (Constanza Camp, RNC) Patient Care Comments: atwood removed, output 800 ml (Constanza Camp, RNC) Datetime: 05/27/2016 14:16 Dilatation (cm): 10.0 (Constanza Camp, RNC) Effacement (%): 100 (Constanza Camp, RNC) Station: 2 (Constanza Camp, RNC) Exam by: Giana Sykes (Constanza Camp, RNC) Instructional Method: Demo; Verbal; Patient Instructed; Family/Support Person Instructed (Constanza Camp, RNC) Labor/Induction: Pushing Methods (Constanza Camp, RNC) Pushing: Involuntary Pushing (Constanza Camp, RNC) Pushing Progress: Presenting Part Visible (Constanza Camp, RNC) Stage 2 Comments: RN and provider Onel to remain at bedside continuously monitoring fhr strip while pt pushes with contractions (Constanza Camp, RNC) Stage 2 Comments: Giana Sykes CNM at bedside, pt grunting , yelling wiht strong urge to push (Constanza Camp, RNC) Datetime: 05/27/2016 14:15 Monitor Mode: External; Palpation (Constanza Camp, RNC) Frequency (min): 2-3 (Constanza Camp, RNC) Quality: Moderate to Strong (Constanza Camp, RNC) Duration (sec): 60-80 (Constanza Camp, RNC) Duration Criteria: Less than Two 120 Second Contractions (Constanza Camp, RNC) Pattern: Normal: <= 5 Contractions in 10 Minutes (Constanza Camp, RNC) Resting Tone (Palpate): Relaxed (Constanza Camp, RNC) Communication: RN at Bedside (Constanza Camp, RNC) Datetime: 05/27/2016 14:14 Preparation for Delivery: Setup for Delivery (Constanza Camp, RNC) Datetime: 05/27/2016 14:10 NBP Sys/Shelbi/Mean (mmHg): 103 (QS system process) : 61 (QS system process) : 77 (QS system process) Pulse: 78 (QS system process) LaborFlag: Labor (QS system process) Datetime: 05/27/2016 14:04 Pitocin (milliunit): Pitocin Increased to (milliunits) @ 12 (Chantelle Blake, RN) Datetime: 05/27/2016 14:00 Stage of : Labor (Chantelle Lozano RN) Monitor Mode: External (Constanza Camp, RNC) Frequency (min): 2.5-5 (Constanza Camp, RNC) Quality: Moderate to Strong (Constanza Camp, RNC) Duration (sec): 60-90 (Constanza Camp, RNC) Duration Criteria: Less than Two 120 Second Contractions (Constanza Camp, RNC) Pattern: Normal: <= 5 Contractions in 10 Minutes (Constanza Camp, RNC) Resting Tone (Palpate): Relaxed (Constanza Camp, RNC) Monitor Mode: External US (Chantelle Lozano RN) FHR Baseline Rate : 115 (Chantelle Lozano RN) FHR Baseline Changes: No Baseline Change (Chantelle Lozano RN) Variability: Moderate 6-25 bpm (Chantelle Lozano, DONNA) Accelerations: 15X15 (Chantelle Lozano, RN) Decelerations: Early (Chantelle Lozano, DONNA) Pain Scale: 2 (Chantelle Lozano, DONNA) Pain Presence: Intermittent (Chantelle Lozano RN) Pain Type: Contraction; Pressure (Chantelle Lozano, RN) Pain Location: Abdomen; Perineum (Chantelle Lozano, RN) Pain Goal: 1 (Chantelle Lozano RN) Pain Relief Measures: Epidural Given; Comfort Measures (Chantelle Lozano, DONNA) Pain Coping: Breathing Through Contractions (Chantelle Lozano RN) LaborFlag: Labor (QS system process)
[2016-05-27] MEDS ORDERED: MEASLES,MUMPS&RUBELLA VACC/PF 0.5 ML VIAL SUBCUT PRN (16:52)
[2016-05-27] MEDS ORDERED: ACETAMINOPHEN WITH CODEINE #3 TABLET PO PRN (16:52)
[2016-05-27] MEDS ORDERED: ZOLPIDEM TARTRATE 5 MG TABLET PO PRN (16:52)
[2016-05-27] MEDS ORDERED: BENZOCAINE/MENTHOL AEROSOL SPRAY 56 ML TOP PRN (16:52)
[2016-05-27] MEDS ORDERED: DIBUCAINE 1% OINTMENT 28 GM TP PRN (16:52)
[2016-05-27] MEDS ORDERED: DIPH/PERTUSS(ACELL)/TETANUS VAC/PF 0.5 ML SYR (>=10YO) IM PRN (16:52)
--- NOTE | 2016-05-27 16:52 | Admission Physical ---
Datetime Report Generated by CPN: 05/27/2016 16:52 CURRENT ADMISSION Chief Complaint: Scheduled Induction of Labor Indication for Induction: Postterm Admit Plan: Initiate Labor Induction Protocol ALLERGIES Medication Allergies: No Medication Allergies: No Known Allergies (05/27/2016) Latex: No Latex Allergies Food Allergies: denies Environmental Allergies: denies OBSTETRICAL HISTORY EDC: 05/20/2016 00:00 : 3 Para: 1 Term: 1 : 0 SAB: 0 IAB: 1 Ectopic: 0 Livin Cesareans: 0 VBACs: 0 Multiple Births: 0 Gestational Diabetes: No Rh Sensitization: No Incompetent Cervix: No BK: No Infertility: No ART Treatment: No Uterine Anomaly: No IUGR: No Hx Previous C/S: No Macrosomia: No Hx Loss/Stillborn: No PIH: No Hx : No Placenta Previa/Abruption: No Depression/PP Depression: No PTL/PROM: No Post Hemorrhage: No Current Procedures: Ultrasound; NST Obstetrical History Comments: G1: AB 9 wk G2:2011 40.4 weeks 10 lb 6 oz ? G3: current SEE RECORDS Alcohol: No Marijuana : No Cocaine: No Other Illicit Drugs: No Cigarettes: Former Smoker. [id number] MEDICAL HISTORY Diabetes: No Blood Transfusion: No Pulmonary Disease (Asthma, TB): No Breast Disease: No Hypertension: No Fire Engineer Surgery: No Heart Disease: No Hosp/Surgery: Yes Autoimmune Disorder: No Anesthetic Complications: No Kidney Disease: No Abnormal Pap Smear: No Neuro/Epilepsy: No Psychiatric Disorders: No Other Medical Diseases: No Hepatitis/Liver Disease: No Significant Family History: No Varicosities/Phlebitis: No Trauma/Violence : No Thyroid Dysfunction: No Medical History Comments: hospitalization childbirth INFECTIOUS HISTORY Gonorrhea: No Genital Herpes: No Chlamydia: No Tuberculosis: No Syphilis: No Hepatitis: No HIV/AIDS Exposure: No Rash or Viral Illness: No HPV: No PHYSICAL EXAM General: Normal HEENT: Deferred Neurologic: Normal Thyroid: Deferred Heart: Normal Lungs: Normal Breast: Deferred Back: Normal Abdomen: Normal Genitourinary Exam: Normal Extremities: Normal DTRs: Deferred Pelvic Type: Adequate VAGINAL EXAM Dilatation: 5 Effacement: 60 Station: -1 MEMBRANES Membranes: Ruptured Amniotic Fluid Color: Clear FETUS A EGA: 41.0 Monitoring: External US FHR- Baseline: 120 (Annotations: Data stored by [facility] on behalf of user) Variability: Moderate 6-25bpm Accelerations: 15X15 Decelerations: None Presentation: Vertex Admit Comment: desires epidural, start pitocin PLANS FOR LABOR AND DELIVERY Labor and Delivery: None Pain Management: Epidural Feeding Preference: Breast Benefit of Breast Feed Discussed: Yes Circumcision: Yes INFORMED CONSENT Assignment: DO Dao Palomo: with User ID: Michelle : with User ID: Michelle
--- NOTE | 2016-05-27 17:09 | Delivery Summary ---
Del Sum A-C Datetime Report Generated by CPN: 05/27/2016 17:09 ADMISSION DATA Chief Complaint: Scheduled Induction of Labor Indication for Induction: Postterm Admission Impression: No Active Labor Admit Provider Comments: desires epidural, start pitocin DELIVERY PERSONNEL Delivery Doctor:: Joyce Sykes CNM Nurse Mosaic Layer Certified:: Joyce Sykes CNM Labor and Delivery Nurse:: Chantelle Lozano RNforestry fire aid Nurse:: CHAPO Rodrigues Nursery Nurse:: Gabriella COWAN Sheetmetal Worker/DRY CURE WORKER: Lazara Clark CNA II Sheetmetal Worker/DRY CURE WORKER: Yee Lorenz DRY CURE WORKER Additional Personnel: : Bobby Petar MATERNAL INFORMATION Delivery Anesthesia: Epidural Medications After Delivery: Pitocin Bolus-Please Comment Meds After Delivery Comment: Pitocin 20 units in 1000 ml open for bolus Estimated Blood Loss (ml): 450 Maternal Complications: None Provider Comments: SVDVM over intact perineum, 1*periurethral lacs repaired. TEMITOPE with double nuchal cord reduced. vigorous, to mothers abd. Cord clamped x 2 cut per FOB. Mothera and stable. Placenta partially with bleeding after about 20 minutes, then was manually removed. Possible Accessory lobe noted with calcifications. Sent to path. Bleeding stabilized, fundus firmed immediately, uterine exploration x 1. Apgars 9,9. EBL 450. LABOR SUMMARY EDC: 05/20/2016 00:00 No. Babies in Womb: 1 Attempted: No Labor Anesthesia: Epidural LABOR INFORMATION Reason for Induction: Post Dates Onset of Labor: 05/27/2016 12:34 Complete Dilatation: 05/27/2016 14:16 Oxytocin: Induction Group B Beta Strep: Negative Antibiotics # of Doses: n/a Antibiotics Time of Last Dose: n/a Name of Antibiotic Given: n/a Steroids Given: None Reason Steroids Not Administered: Not Applicable MEMBRANES Membranes Rupture Method: Artificial Rupture of Membranes: 05/27/2016 08:16 Length of Rupture (hr): 6.10 Amniotic Fluid Color: Clear Amniotic Fluid Amount: Small Amniotic Fluid Odor: Normal STAGES OF LABOR Stage 1 hr: 1 Stage 1 min: 42 Stage 2 hr: 0 Stage 2 min: 6 Stage 3 hr: 0 Stage 3 min: 18 Total Time in Labor hr: 2 Total Time in Labor min: 6 VAGINAL DELIVERY Episiotomy: None Laceration Extension: First Degree Laceration Type: Periurethral Laceration Repair: Yes Laceration Repair Note: 3.0 chromic Sponge Count Correct: N/A Sharps Count Correct: N/A CSECTION DELIVERY Primary Indication: N/A Secondary Indication: N/A CSection Incidence: N/A Labor: N/A Elective: N/A CSection Incision: N/A BABY A INFORMATION Infant Delivery Date/Time: 05/27/2016 14:22 Method of Delivery: Vaginal Born in Route : No : N/A Forceps: N/A Vacuum Extraction: N/A Shoulder Dystocia : No PRESENTATION/POSITION BABY A Presentation: Cephalic Cephalic Presentation: Vertex Vertex Position: Right Occipital Anterior Breech Presentation: N/A PLACENTA INFORMATION BABY A Placenta Delivery Time : 05/27/2016 14:40 Placenta Method of Delivery: Manual Removal Placenta Status: Delivered SCORES BABY A Heart Rate 1 min: >100 bpm Resp Effort 1 min: Good Cry Reflex Irritability 1 min: Cough or Sneeze or Pulls Away Muscle Tone 1 min: Active Motion Color 1 min: Body Adamson, Extremities Blue Resuscitation Effort 1 min: Tactile Stimulation SCORE 1 MIN: 9 Heart Rate 5 min: >100 bpm Resp Effort 5 min: Good Cry Reflex Irritability 5 min: Cough or Sneeze or Pulls Away Muscle Tone 5 min: Active Motion Color 5 min: Body Adamson, Extremities Blue Resuscitation Effort 5 min: N/A SCORE 5 MIN: 9 Resuscitation Effort 10 min: N/A INFANT INFORMATION BABY A Gestational Age at Delivery: 41.0 Gestational Status: Late Term- 41- 41.6 Weeks Outcome : Liveborn Condition : Stable Sex: Male IDENTIFICATION BABY A Infant Verification Date/Time: 05/27/2016 14:44 ID Band Number: [id number] Mother's Name Verified: Yes RN Verifying Infant: D Christopher RNC Additional Verifying Personnel: Shen Davey RN CORD INFORMATION BABY A No. Cord Vessels: 3 Nuchal Cord : Around Neck x2, Loose Cord Blood Taken: Yes-For Storage (Mom's Blood type +) Suction: Mouth; Nose ASSESSMENT BABY A Infant Complications: None Physical Findings at Delivery: Within Normal Limits Respirations: Appears Normal Skin to Skin: Yes Skin to Skin Time (min): 20 Supervisor Pig Machine/ALS Called : No Infant Care By: D Bellavance RNC Transferred To: Remains with Mother BABY B INFORMATION : N/A SIGNATURES Assignment: Bj Reynolds DO Signature: with User ID: Michelle : with User ID: Michelle : I was personally available for consultation and serving as supervising physician for the MLP.
[2016-05-27] MEDS ORDERED: INFLUENZA ADLT QUAD (36MOS+) 2016-17 VAC 0.5 ML SYR IM PRN (17:43)
[2016-05-27] MEDS: DOCUSATE SODIUM 100 MG CAPSULE PO SCH (18:00)
[2016-05-27] MEDS: FERROUS SULFATE 325 MG TABLET PO SCH (18:00)
[2016-05-27] MEDS ORDERED: METHYLERGONOVINE MALEATE INJ/PF 0.2 MG/1 ML AMPULE ONE (18:34)
[2016-05-27] MEDS ORDERED: OXYTOCIN 10 UNIT/ML VIAL ONE (18:39)
--- NOTE | 2016-05-27 19:01 | L&D Flow Sheet ---
LD Flowsheet Datetime Report Generated by CPN: 05/27/2016 19:00 Datetime: 05/27/2016 16:48 [facility] of : [facility] Pain Scale: 1 ([facility]) Pain Presence: Intermittent ([facility]) Pain Type: Cramping ([facility]) Pain Location: Abdomen ([facility]) Pain Goal: 1 ([facility]) Pain Relief Measures: Comfort Measures (Chantelle Andrews, RN) Datetime: 05/27/2016 16:24 Stage of : Recovery (Chantelle Lozano RN) NBP Sys/Shelbi/Mean (mmHg): 119 (QS system process) : 55 (QS system process) : 79 (QS system process) Pulse: 83 (QS system process) Respirations: 16 (Chantelle Lozano, RN) Datetime: 05/27/2016 16:15 Stage of : Recovery (Chantelle Lozano RN) Temperature (F): 98.4 (Chantelle Lozano RN) Temperature (C): 36.9 (QS system process) Temperature Route: Oral (Chantelle Lozano RN) Pain Scale: 1 (Chantelle Lozano RN) Pain Presence: Intermittent (Chantelle Lozano RN) Pain Type: Cramping (Chantelel Lozano RN) Pain Location: Abdomen (Chantelle Lozano RN) Pain Goal: 1 (Chantelle Lozano RN) Pain Relief Measures: Comfort Measures (Chantelle Lozano RN) Datetime: 05/27/2016 16:09 NBP Sys/Shelbi/Mean (mmHg): 94 (QS system process) : 58 (QS system process) : 71 (QS system process) Pulse: 85 (QS system process) Datetime: 05/27/2016 16:00 Stage of : Recovery (Chantelle Lozano RN) Pain Scale: 1 (Chantelle Lozano RN) Pain Presence: Intermittent (Chantelle Lozano RN) Pain Type: Cramping (Chantelle Lozano RN) Pain Location: Abdomen (Chantelle Lozano RN) Pain Goal: 1 (Chantelle Lozano RN) Pain Relief Measures: Comfort Measures (Chantelle Lozano RN) Datetime: 05/27/2016 15:54 NBP Sys/Shelbi/Mean (mmHg): 96 (QS system process) : 57 (QS system process) : 71 (QS system process) Pulse: 100 (QS system process) Datetime: 05/27/2016 15:51 Stage of : Recovery ([facility], ) Datetime: 05/27/2016 15:47 Stage of : Recovery ([facility], ) Pain Scale: 2 ([facility], RN) Pain Presence: Intermittent ([facility], ) Pain Type: Cramping ([facility], ) Pain Location: Abdomen; Head ([facility], ) Pain Goal: 1 ([facility], ) Pain Relief Measures: Pain Medication Given; Comfort Measures ([facility], ) Datetime: 05/27/2016 15:45 Stage of : Recovery ([facility], ) Pain Scale: 2 ([facility], ) Pain Presence: Intermittent (Chantelle Lozano RN) Pain Type: Cramping (Chantelle Lozano, DONNA) Pain Location: Abdomen (Chantelle Lozano RN) Pain Goal: 1 (Chantelle Lozano RN) Pain Relief Measures: Comfort Measures (Chantelle Lozano RN) Datetime: 05/27/2016 15:39 Stage of : Labor (Chantelle Loznao RN) NBP Sys/Shelbi/Mean (mmHg): 105 (QS system process) : 59 (QS system process) : 74 (QS system process) Pulse: 93 (QS system process) Respirations: 16 (Chantelle Lozano, DONNA) LaborFlag: Labor (QS system process) Datetime: 05/27/2016 15:33 NBP Sys/Shelbi/Mean (mmHg): 129 (QS system process) : 58 (QS system process) : 83 (QS system process) Pulse: 105 (QS system process) Datetime: 05/27/2016 15:31 Stage of : Recovery (Chantelle Lozano, ) Datetime: 05/27/2016 15:30 Stage of : Recovery (Chantelle Lozano, ) Datetime: 05/27/2016 15:15 Stage of : Recovery (Chantelle Lozano RN) Pain Scale: 2 (Chantelle Lozano RN) Pain Presence: Intermittent (Chantelle Lozano RN) Pain Type: Cramping (Chantelle Lozano RN) Pain Location: Abdomen (Chantelle Lozano RN) Pain Goal: 1 (Chantelle Lozano RN) Pain Relief Measures: Comfort Measures (Chantelle Andrews, RN) Datetime: 05/27/2016 15:00 Stage of : Recovery ([facility], RNC) Pain Scale: 1 ([facility], RNC) Pain Presence: Intermittent ([facility], RNC) Pain Type: Cramping ([facility], RNC) Pain Location: Abdomen ([facility], RNC) Pain Goal: 1 ([facility], RNC) Pain Relief Measures: Comfort Measures ([place], RNC) Datetime: 05/27/2016 14:44 Stage of : Recovery ([facility], RNC) Temperature (F): 98.3 ([facility], RNC) Temperature (C): 36.8 (QS system process) Temperature Route: Oral ([facility], RNC) Pain Scale: 1 ([facility], RNC) Pain Presence: Intermittent ([facility], RNC) Pain Type: Cramping ([facility], RNC) Pain Location: Abdomen ([facility], RNC) Pain Goal: 1 ([facility], RNC) Pain Relief Measures: Comfort Measures ([facility], RNC) Datetime: 05/27/2016 14:43 Anesthesia Comments: epidural discontinued; pump off ([facility], RNC) Datetime: 05/27/2016 14:39 Pitocin (milliunit): Pitocin 20 Units in 1000ml NS ([facility], RNC) Medication Comments: Pitocin 20 units/1000 ml infusing at delivery of placenta ([facility], RNC) Datetime: 05/27/2016 14:30 Stage of : Labor ([facility], RNC) NBP Sys/Shelbi/Mean (mmHg): 101 (QS system process) : 51 (QS system process) : 73 (QS system process) Pulse: 80 (QS system process) Respirations: 18 (CHAPO Rodrigues) Stage 2 Comments: attempt to latch left breast (CHAPO Rodrigues) LaborFlag: Labor (QS system process) Datetime: 05/27/2016 14:24 NBP Sys/Shelbi/Mean (mmHg): 113 (QS system process) : 63 (QS system process) : 76 (QS system process) LaborFlag: Labor (QS system process) Datetime: 05/27/2016 14:22 Instructional Method: Verbal; Patient Instructed; Family/Support Person Instructed (CHAPO Rodrigues) Teaching Comments: reviewed importance of skin to skin (CHAPO Rodrigues) Stage 2 Comments: delivery liveborn male with spontaneous lusty cry noted. Placed on maternal abdomen, cord clamped after delay by FOB . Placed skin to skin on maternal chest (CHAPO Rodrigues) Datetime: 05/27/2016 14:20 Pushing Progress: with Pushing ([facility] [place], RNC) Datetime: 05/27/2016 14:19 Pushing Position: Pushing with Contractions; Pushing Lithotomy ([facility] [place], RNC) Stage 2 Comments: pt screaming RN and provider remain at bedside with family member attempting to life coach ([facility] [place], RNC) Datetime: 05/27/2016 14:18 I/O Interventions: Atwood Discontinued ([facility] Camp, RNC) Patient Care Comments: atwood removed, output 800 ml ([facility] [place], RNC) Datetime: 05/27/2016 14:16 Dilatation (cm): 10.0 ([facility] [place], RNC) Effacement (%): 100 ([facility], RNC) Station: 2 ([facility], RNC) Exam by: Giana Sykes ([facility], RNC) Instructional Method: Demo; Verbal; Patient Instructed; Family/Support Person Instructed (Constanza Caraballo, RNC) Labor/Induction: Pushing Methods ([facility] [place], RNC) Pushing: Involuntary Pushing ([facility], RNC) Pushing Progress: Presenting Part Visible ([facility] [place], RNC) Stage 2 Comments: RN and provider Onel to remain at bedside continuously monitoring fhr strip while pt pushes with contractions ([facility] [place], RNC) Stage 2 Comments: Giana Sykes CNM at bedside, pt grunting , yelling wiht strong urge to push ([facility] [place], RNC) Datetime: 05/27/2016 14:15 Monitor Mode: External; Palpation ([facility] [place], RNC) Frequency (min): 2-3 ([facility] [place], RNC) Quality: Moderate to Strong ([facility], RNC) Duration (sec): 60-80 ([facility] [place], RNC) Duration Criteria: Less than Two 120 Second Contractions ([facility] [place], RNC) Pattern: Normal: <= 5 Contractions in 10 Minutes ([facility] [place], RNC) Resting Tone (Palpate): Relaxed ([facility] [place], RNC) Communication: RN at Bedside ([facility] [place], RNC) Datetime: 05/27/2016 14:14 Preparation for Delivery: Setup for Delivery ([facility] [place], RNC) Datetime: 05/27/2016 14:10 NBP Sys/Shelbi/Mean (mmHg): 103 (QS system process) : 61 (QS system process) : 77 (QS system process) Pulse: 78 (QS system process) LaborFlag: Labor (QS system process) Datetime: 05/27/2016 14:04 Pitocin (milliunit): Pitocin Increased to (milliunits) @ 12 (Chantelle Lozano, DONNA) Datetime: 05/27/2016 14:00 Stage of : Labor (Chantelle Lozano, DONNA) Monitor Mode: External ([facility], RNC) Frequency (min): 2.5-5 ([facility] [place], RNC) Quality: Moderate to Strong ([facility] [place], RNC) Duration (sec): 60-90 ([facility], RNC) Duration Criteria: Less than Two 120 Second Contractions ([facility] [place], RNC) Pattern: Normal: <= 5 Contractions in 10 Minutes ([facility] [place], RNC) Resting Tone (Palpate): Relaxed ([facility], RNC) Monitor Mode: External US (Chantelle Lozano, DONNA) FHR Baseline Rate : 115 (Chantelle Lozano RN) FHR Baseline Changes: No Baseline Change (Chantelle Lozano RN) Variability: Moderate 6-25 bpm (Chantelle Lozano, RN) Accelerations: 15X15 (Chantelle Lozano, RN) Decelerations: Early (Chantelle Lozano, RN) Pain Scale: 2 (Chantelle Lozano RN) Pain Presence: Intermittent (Chantelle Lozano RN) Pain Type: Contraction; Pressure (Chantelle Lozano RN) Pain Location: Abdomen; Perineum (Chantelle Lozano RN) Pain Goal: 1 (Chantelle Lozano RN) Pain Relief Measures: Epidural Given; Comfort Measures (Chantelle Lozano RN) Pain Coping: Breathing Through Contractions (Chantelle Lozano RN) LaborFlag: Labor (QS system process) Datetime: 05/27/2016 13:57 Dilatation (cm): 7.0 (Chantelle Lozano RN) Effacement (%): 90 (Chantelle Lozano RN) Station: 0 (Chantelle Lozano RN) Exam by: Joyce Sykes CNM (Chantelle Lozano RN) Patient Position/Activity: Right Lateral; Low Fowlers (Chantelle Lozano RN) Datetime: 05/27/2016 13:54 Stage of : Recovery (Chantelle Lozano RN) NBP Sys/Shelbi/Mean (mmHg): 94 (QS system process) : 51 (QS system process) : 67 (QS system process) Pulse: 81 (QS system process) Respirations: 16 (Chantelle Andrews, RN) Datetime: 05/27/2016 13:45 Monitor Mode: External (Chantelle Bentonard, RN) Frequency (min): 2-3 (Chantelle Bentonard, RN) Quality: Moderate to Strong (Chantelle Andrews, RN) Duration (sec): 80-120 (Chantelle Blake, RN) Duration Criteria: Less than Two 120 Second Contractions (Chantelle Andrews, RN) Pattern: Normal: <= 5 Contractions in 10 Minutes (Chantelle Andrews, RN) Resting Tone (Palpate): Relaxed (Chantelle Blake, RN) Monitor Mode: External US (Chantelle Bentonard, RN) FHR Baseline Rate : 120 (Chantelle Andrews, RN) FHR Baseline Changes: No Baseline Change (Chantelle Blake, RN) Variability: Moderate 6-25 bpm (Chantelle Andrews, RN) Accelerations: 15X15 (Chantelle Andrews, RN) Decelerations: Early (Chantelle Andrews, RN) Pitocin (milliunit): Pitocin Remains (milliunits) @ (Annotations: 10) (Chantelle Andrews, RN) Datetime: 05/27/2016 13:39 Stage of : Labor (Chantelle Lozano RN) NBP Sys/Shelbi/Mean (mmHg): 92 (QS system process) : 51 (QS system process) : 66 (QS system process) Pulse: 89 (QS system process) Respirations: 14 (Chantelle Lozano RN) LaborFlag: Labor (QS system process) Datetime: 05/27/2016 13:37 NBP Sys/Shelbi/Mean (mmHg): 103 (QS system process) : 55 (QS system process) : 73 (QS system process) Pulse: 81 (QS system process) LaborFlag: Labor (QS system process) Datetime: 05/27/2016 13:30 Monitor Mode: External (Chantelle Lozano RN) Monitor Interventions for UA: [place] Adjusted (Chantelle Lozano RN) Frequency (min): 2-3 (Chantelle Lozano RN) Quality: Moderate to Strong (Chantelle Lozano RN) Duration (sec): 70-110 (Chantelle Lozano RN) Duration Criteria: Less than Two 120 Second Contractions (Chantelle Lozano RN) Pattern: Normal: <= 5 Contractions in 10 Minutes (Chantelle Loazno RN) Resting Tone (Palpate): Relaxed (Chantelle Lozano RN) Monitor Mode: External US (Chantelle Lozano RN) FHR Baseline Rate : 125 (Chantelle Lozano RN) FHR Baseline Changes: No Baseline Change (Chantelle Lozano RN) Variability: Moderate 6-25 bpm (Chantelle Lozano RN) Accelerations: 15X15 (Chantelle Lozano RN) Decelerations: Early; Variable (Chantelle Lozano RN) Pitocin (milliunit): Pitocin Remains (milliunits) @ (Annotations: 10) (Chantelle Lozano RN) Communication: RN at Bedside (Chantelle Lozano RN) Datetime: 05/27/2016 13:24 Stage of : Labor (Chantelle Lozano RN) NBP Sys/Shelbi/Mean (mmHg): 105 (QS system process) : 59 (QS system process) : 77 (QS system process) Pulse: 76 (QS system process) Respirations: 12 (Chantelle Lozano RN) LaborFlag: Labor (QS system process) Datetime: 05/27/2016 13:22 NBP Sys/Shelbi/Mean (mmHg): 111 (QS system process) : 59 (QS system process) : 80 (QS system process) Pulse: 81 (QS system process) LaborFlag: Labor (QS system process) Datetime: 05/27/2016 13:21 NBP Sys/Shelbi/Mean (mmHg): 112 (QS system process) : 68 (QS system process) : 83 (QS system process) Pulse: 85 (QS system process) LaborFlag: Labor (QS system process) Datetime: 05/27/2016 13:20 NBP Sys/Shelbi/Mean (mmHg): 114 (QS system process) : 62 (QS system process) : 82 (QS system process) Pulse: 81 (QS system process) LaborFlag: Labor (QS system process) Datetime: 05/27/2016 13:19 NBP Sys/Shelbi/Mean (mmHg): 113 (QS system process) : 59 (QS system process) : 80 (QS system process) Pulse: 93 (QS system process) LaborFlag: Labor (QS system process) Datetime: 05/27/2016 13:18 NBP Sys/Shelbi/Mean (mmHg): 108 (QS system process) : 56 (QS system process) : 76 (QS system process) Pulse: 76 (QS system process) LaborFlag: Labor (QS system process) Datetime: 05/27/2016 13:17 NBP Sys/Shelbi/Mean (mmHg): 113 (QS system process) : 60 (QS system process) : 80 (QS system process) Pulse: 81 (QS system process) LaborFlag: Labor (QS system process) Datetime: 05/27/2016 13:16 NBP Sys/Shelbi/Mean (mmHg): 120 (QS system process) : 64 (QS system process) : 85 (QS system process) Pulse: 89 (QS system process) I/O Interventions: [place] Cath Inserted (Chantelle Lozano RN) Patient Care Comments: [place] catheter inserted using sterile technique. patient tolerated well. clear yellow urine noted (Chantelle Lozano RN) LaborFlag: Labor (QS system process) Datetime: 05/27/2016 13:15 NBP Sys/Shelbi/Mean (mmHg): 116 (QS system process) : 62 (QS system process) : 82 (QS system process) Pulse: 84 (QS system process) Monitor Mode: External (Chantelle Lozano RN) Frequency (min): 2-2.5 (Chantelle Lozano RN) Quality: Moderate to Strong (Chantelle Lozano RN) Duration (sec): 70-110 (Chantelle Lozano RN) Duration Criteria: Less than Two 120 Second Contractions (Chantelle Lozano RN) Pattern: Normal: <= 5 Contractions in 10 Minutes (Chantelle Lozano RN) Resting Tone (Palpate): Relaxed (Chantelle Lozano RN) Monitor Mode: External US (Chantelle Lozano RN) FHR Baseline Rate : 130 (Chantelle Lozano RN) FHR Baseline Changes: No Baseline Change (Chantelle Lozano RN) Variability: Moderate 6-25 bpm (Chantelle Lozano RN) Accelerations: 15X15 (Chantelle Lozano RN) Decelerations: None (Chantelle Lozano RN) Comments: patient sitting up for epidural placement (Chantelle Lozano RN) Pitocin (milliunit): Pitocin Remains (milliunits) @ (Annotations: 10) (Chantelle Lozano RN) Epidural Procedure Other: Pump Started (Chantelle Lozano RN) Anesthesia Level Check: T10- Umbilicus (Chantelle Lozano RN) Communication: RN at Bedside (Chantelle Lozano RN) LaborFlag: Labor (QS system process) Datetime: 05/27/2016 13:14 NBP Sys/Shelbi/Mean (mmHg): 114 (QS system process) NBP Sys/Shelbi/Mean (mmHg): 120 (QS system process) : 59 (QS system process) : 57 (QS system process) : 82 (QS system process) Pulse: 81 (QS system process) Pulse: 80 (QS system process) LaborFlag: Labor (QS system process) Datetime: 05/27/2016 13:12 NBP Sys/Shelbi/Mean (mmHg): 119 (QS system process) : 63 (QS system process) : 82 (QS system process) Pulse: 88 (QS system process) LaborFlag: Labor (QS system process) Datetime: 05/27/2016 13:11 NBP Sys/Shelbi/Mean (mmHg): 114 (QS system process) : 66 (QS system process) : 82 (QS system process) Pulse: 86 (QS system process) LaborFlag: Labor (QS system process) Datetime: 05/27/2016 13:10 NBP Sys/Shelbi/Mean (mmHg): 126 (QS system process) : 69 (QS system process) : 88 (QS system process) Pulse: 85 (QS system process) LaborFlag: Labor (QS system process) Datetime: 05/27/2016 13:09 NBP Sys/Shelbi/Mean (mmHg): 117 (QS system process) : 64 (QS system process) : 84 (QS system process) Pulse: 81 (QS system process) Epidural Procedure: Loading Dose (Chantelle Lozano RN) LaborFlag: Labor (QS system process) Datetime: 05/27/2016 13:08 NBP Sys/Shelbi/Mean (mmHg): 115 (QS system process) : 66 (QS system process) : 85 (QS system process) Pulse: 90 (QS system process) Epidural Procedure: Cath Placed (Chantelle Lozano RN) Epidural Procedure: Test Dose (Chantelle Lozano RN) LaborFlag: Labor (QS system process) Datetime: 05/27/2016 13:06 Pulse: 93 (QS system process) SpO2 (%): 100 (QS system process) LaborFlag: Labor (QS system process) Datetime: 05/27/2016 13:05 Stage of : Labor (Chantelle Lozano RN) NBP Sys/Shelbi/Mean (mmHg): 127 (QS system process) : 71 (QS system process) : 94 (QS system process) Pulse: 86 (QS system process) Respirations: 14 (Chantelle Lozano RN) LaborFlag: Labor (QS system process) Datetime: 05/27/2016 13:03 Procedure Verify: Correct Patient Identity; Correct Side and Site are Marked; Accurate Procedure Consent Form; Agreement on Procedure to be Done; Correct Patient Position; Relevant Images and Results are Properly Labeled and Displayed; Addressed Need to Administer Antibiotics or Fluids for Irrigation; Safety Precautions Based on Patient History or Medication Use (Chantelle Lozano RN) Anesthesia Plans: Epidural (Chantelle Lozano RN) Epidural Positioning: Sitting (Chantelle Lozano RN) Datetime: 05/27/2016 13:02 Contraction Comments: toco removed for epidural (Chantelle Lozano RN) Comments: RN attempting to obtain continuous fht during epidural. Remains at bedside to assess fht and pt (Chantelle Lozano RN) Anesthesia Comments: Dr Harris at bedside to obtain consent for epidural. (Chantelle Lozano RN) Datetime: 05/27/2016 13:01 Procedure Verify: Correct Patient Identity; Correct Side and Site are Marked; Accurate Procedure Consent Form; Agreement on Procedure to be Done; Correct Patient Position; Relevant Images and Results are Properly Labeled and Displayed; Addressed Need to Administer Antibiotics or Fluids for Irrigation; Safety Precautions Based on Patient History or Medication Use (Chantelle Lozano RN) Anesthesia Plans: Epidural (Chantelle Lozano RN) Epidural Positioning: Sitting (Chantelle Lozano RN) Datetime: 05/27/2016 13:00 Stage of : Labor (Chantelle Lozano RN) Temperature (F): 98.6 (Chantelle Lozano RN) Temperature (C): 37.0 ([employer] system process) Temperature Route: Oral (Chantelle Lozano RN) Monitor Mode: External (Chantelle Lozano RN) Frequency (min): 2.5-3.5 (Chantelle Lozano RN) Quality: Moderate to Strong (Chantelle Lozano RN) Duration (sec): 60-120 (Chantelle Lozano RN) Duration Criteria: Less than Two 120 Second Contractions (Chantelle Lozano RN) Pattern: Normal: <= 5 Contractions in 10 Minutes (Chantelle Lozano RN) Resting Tone (Palpate): Relaxed (Chantelle Lozano RN) Monitor Mode: External US (Chantelle Lozano RN) FHR Baseline Rate : 130 (Chantelle Lozano RN) FHR Baseline Changes: No Baseline Change (Chantelle Lozano RN) Variability: Moderate 6-25 bpm (Chantelle Lozano RN) Accelerations: 15X15 (Chantelle Lozano RN) Decelerations: None (Chantelle Lozano RN) Comments: adible movement noted (Chantelle Lozano RN) Pitocin (milliunit): Pitocin Remains (milliunits) @ (Annotations: 10) (Chantelle Lozano RN) LaborFlag: Labor ([employer] system process) Datetime: 05/27/2016 12:45 Monitor Interventions for UA: [place] Adjusted (Chantelle Lozano RN) Contraction Comments: unable to determine due to patient postion (Chantelle Lozano, DONNA) Monitor Mode: External US (Chantelle Lozano RN) FHR Baseline Rate : 125 (Chantelle Lozano RN) FHR Baseline Changes: No Baseline Change (Chantelle Lozano RN) Variability: Moderate 6-25 bpm (Chantelle Lozano RN) Accelerations: 15X15 (Chantelle Lozano, DONNA) Decelerations: None (Chantelle Lozano RN) Comments: maternal heart rate noted intermittently; epidural being placed (Chantelle Lozano RN) Pitocin (milliunit): Pitocin Remains (milliunits) @ (Annotations: 10) (Chantelle Lozano RN) Datetime: 05/27/2016 12:41 NBP Sys/Shelbi/Mean (mmHg): 112 (QS system process) : 63 (QS system process) : 82 (QS system process) Pulse: 79 (QS system process) LaborFlag: Labor (QS system process) Datetime: 05/27/2016 12:38 IV/Blood Work: IV Bolus Started (Chantelle Lozano, DONNA) Datetime: 05/27/2016 12:37 Pain Scale: 4 (Chantelle Lozano RN) Pain Presence: Intermittent (Chantelle Lozano RN) Pain Type: Contraction (Chantelle Lozano RN) Pain Location: Abdomen (Chantelle Lozano RN) Pain Goal: 1 (Chantelle Lozano RN) Pain Relief Measures: Comfort Measures (Chantelle Lozano RN) Pain Coping: Requesting Pain Medication or Epidural (Chantelle Lozano RN) Pain Assessment Comments: Joyce Sykes CNM notified of patient increased pain and request for epidural. Orders received (Chantelle Lozano RN) LaborFlag: Labor (QS system process) Datetime: 05/27/2016 12:34 Dilatation (cm): 4.5 (Chantelle Lozano RN) Effacement (%): 60 (Chantelle Lozano RN) Station: -1 (Chantelle Lozano RN) Exam by: Joyce Sykes CNM (Chantelle Lozano RN) Vaginal Bleeding: None (Chantelle Lozano RN) Cervix, Consistency: Soft (Chantelle Lozano RN) Cervix, Position: Midposition (Chantelle Lozano RN) Datetime: 05/27/2016 12:32 Provider Reviewed Strip: Yes (Chantelle Lozano RN) Communication: RN at Bedside; RN Reviewed Strip; Provider at Bedside (Chantelle Lozano RN) Provider Notified (Name): Joyce Sykes at bedside assessing patient (Chantelle Lozano RN) Datetime: 05/27/2016 12:30 Monitor Mode: External (Chantelle Lozano RN) Frequency (min): 3-3.5 (Chantelle Lozano RN) Quality: Moderate to Strong (Chantelle Lozano, RN) Duration (sec): 100-120 (Chantelle Lozano, RN) Duration Criteria: Less than Two 120 Second Contractions (Chantelle Lozano, RN) Pattern: Normal: <= 5 Contractions in 10 Minutes (Chantelle Lozano, RN) Resting Tone (Palpate): Relaxed (Chantelle Lozano, RN) Monitor Mode: External US (Chantelle Lozano, RN) FHR Baseline Rate : 125 (Chantelle Lozano, RN) FHR Baseline Changes: No Baseline Change (Chantelle Lozano, RN) Variability: Moderate 6-25 bpm (Chantelle Lozano, RN) Accelerations: 10X10 (Chantelle Lozano, RN) Decelerations: Early (Chantelle Lozano, RN) Pitocin (milliunit): Pitocin Remains (milliunits) @ (Annotations: 10) (Chantelle Lozano, RN) Datetime: 05/27/2016 12:26 I/O Interventions: Up to BR (Chantelle Lozano, RN) Datetime: 05/27/2016 12:15 Frequency (min): 2-3.5 (Chantelle Lozano, RN) Quality: Moderate to Strong (Chantelle Lozano, RN) Duration (sec): 80-110 (Chantelle Lozano, RN) Duration Criteria: Less than Two 120 Second Contractions (Chantelle Lozano, RN) Pattern: Normal: <= 5 Contractions in 10 Minutes (Chantelle Lozano, RN) Resting Tone (Palpate): Relaxed (Chantelle Lozano, RN) Monitor Mode: External US (Chantelle Lozano, RN) FHR Baseline Rate : 125 (Chantelle Lozano, RN) FHR Baseline Changes: No Baseline Change (Chantelle oLzano, RN) Variability: Moderate 6-25 bpm (Chantelle Lozano, RN) Accelerations: 15X15 (Chantelle Lozano, RN) Decelerations: Early (Chantelle Lozano, RN) Pitocin (milliunit): Pitocin Increased to (milliunits) @ (Annotations: 10) (Chantelle Lozano, RN) Datetime: 05/27/2016 12:05 NBP Sys/Shelbi/Mean (mmHg): 111 (QS system process) : 59 (QS system process) : 82 (QS system process) Pulse: 85 (QS system process) LaborFlag: Labor (QS system process) Datetime: 05/27/2016 12:00 Monitor Mode: External (Chantelle Andrews, RN) Frequency (min): 2.5-3 (Chantelle Blake, RN) Quality: Moderate (Chantelle Blake, RN) Duration (sec): 80-110 (Chantelle Blake, RN) Duration Criteria: Less than Two 120 Second Contractions (Chantelle Blake, RN) Pattern: Normal: <= 5 Contractions in 10 Minutes (Chantelle Blake, RN) Resting Tone (Palpate): Relaxed (Chantelle Andrews, RN) Pitocin (milliunit): Pitocin Remains (milliunits) @ (Annotations: 8) (Chantelle Blake, RN) Datetime: 05/27/2016 11:59 Monitor Mode: External US (Chantelle Andrews, RN) FHR Baseline Rate : 125 (Chantelle Blake, RN) FHR Baseline Changes: No Baseline Change (Chantelle Andrews, RN) Variability: Moderate 6-25 bpm (Chantelle Andrews, RN) Accelerations: 15X15 (Chantelle Andrews, RN) Decelerations: None (Chantelle Blake, RN) Datetime: 05/27/2016 11:45 Monitor Mode: External (Chantelle Lozano RN) Monitor Interventions for UA: [place] Adjusted (Chantelle Lozano RN) Frequency (min): 2-3 (Chantelle Lozano RN) Quality: Moderate (Chantelle Lozano RN) Duration (sec): 70-90 (Chantelle Lozano RN) Duration Criteria: Less than Two 120 Second Contractions (Chantelle Lozano RN) Pattern: Normal: <= 5 Contractions in 10 Minutes (Chantelle Lozano RN) Resting Tone (Palpate): Relaxed (Chantelle Lozano RN) Monitor Interventions for FHR: Ultrasound Adjusted (Chantelle Lozano RN) FHR Baseline Changes: Unable to Determine (Chantelle Lozano RN) Comments: patient up to bathroom amd changing position (Chantelle Lozano RN) Pitocin (milliunit): Pitocin Remains (milliunits) @ (Annotations: 8) (Chantelle Lozano RN) Datetime: 05/27/2016 11:42 Comfort Measures: Rocking Chair; Family Support (Chantelle Lozano RN) Datetime: 05/27/2016 11:37 I/O Interventions: Up to BR (Chantelle Lozano, RN) Datetime: 05/27/2016 11:34 NBP Sys/Shelbi/Mean (mmHg): 110 (QS system process) : 60 (QS system process) : 79 (QS system process) Pulse: 83 (QS system process) LaborFlag: Labor (QS system process) Datetime: 05/27/2016 11:30 Monitor Mode: External (Chantelle Lozano RN) Frequency (min): 2-3.5 (Chantelle Lozano RN) Quality: Moderate (Chantelle Lozano RN) Duration (sec): 60-90 (Chantelle Lozano RN) Duration Criteria: Less than Two 120 Second Contractions (Chantelle Lozano RN) Pattern: Normal: <= 5 Contractions in 10 Minutes (Chantelle Lozano RN) Resting Tone (Palpate): Relaxed (Chantelle Lozano RN) Monitor Mode: External US (Chantelle Lozano RN) FHR Baseline Rate : 115 (Chantelle Lozano RN) FHR Baseline Changes: No Baseline Change (Chantelle Lozano RN) Variability: Minimal - Undetectable to <=5 bpm (Chantelle Lozano RN) Accelerations: None (Chantelle Lozano RN) Decelerations: None (Chantelle Lozano RN) Actions for Decelerations: Provider Reviewed Strip; Provider Notified (Chantelle Lozano RN) Comments: Joyce Sykes CNM on unit; reviewed strip (Chantelle Lozano RN) Pitocin (milliunit): Pitocin Remains (milliunits) @ (Annotations: 8) (Chantelle Lozano RN) Datetime: 05/27/2016 11:26 IV/Blood Work: IV Infusing per Order (Chantelle Lozano RN) Patient Position/Activity: Right Tilt; High Fowlers; Tailors (Chantelle Lozano RN) Datetime: 05/27/2016 11:22 Stage of : Labor (Chantelle Lozano RN) Pain Scale: 3 (Chantelle Lozano RN) Pain Presence: Intermittent (Chantelle Lozano RN) Pain Type: Contraction (Chantelle Lozano RN) Pain Location: Abdomen (Chantelle Lozano RN) Pain Goal: 1 (Chantelle Lozano RN) Pain Relief Measures: Comfort Measures (Chantelle Lozano RN) Pain Coping: Breathing Through Contractions; Declines Medication or Epidural (Chantelle Lozano RN) LaborFlag: Labor (QS system process) Datetime: 05/27/2016 11:15 Monitor Mode: External (Chantelle Lozano RN) Frequency (min): 2.5-3 (Chantelle Lozano RN) Quality: Mild/Moderate (Chantelle Lozano RN) Duration (sec): 60-100 (Chantelle Lozano RN) Duration Criteria: Less than Two 120 Second Contractions (Chantelle Lozano RN) Pattern: Normal: <= 5 Contractions in 10 Minutes (Chantelle Lozano RN) Resting Tone (Palpate): Relaxed (Chantelle Lozano RN) Monitor Mode: External US (Chantelle Lozano RN) FHR Baseline Rate : 120 (Chantelle Lozano RN) FHR Baseline Changes: No Baseline Change (Chantelle Lozano RN) Variability: Moderate 6-25 bpm (Chantelle Lozano RN) Accelerations: 15X15 (Chantelle Lozano RN) Decelerations: None (Chantelle Lozano RN) Pitocin (milliunit): Pitocin Remains (milliunits) @ (Annotations: 8) (Chantelle Lozano RN) Datetime: 05/27/2016 11:01 Stage of : Labor (Chantelle Lozano, RN) Temperature (F): 98.2 (Chantelle Lozano, RN) Temperature (C): 36.8 (QS system process) Temperature Route: Oral (Chantelle Lozano, RN) LaborFlag: Labor (QS system process) Datetime: 05/27/2016 11:00 Monitor Mode: External (Chantelle Lozano, RN) Frequency (min): 2-4 (Chantelle Lozano, RN) Quality: Mild/Moderate (Chantelle Lozano, RN) Duration (sec): 70-120 (Chantelle Lozano, RN) Duration Criteria: Less than Two 120 Second Contractions (Chantelle Lozano, RN) Pattern: Normal: <= 5 Contractions in 10 Minutes (Chantelle Lozano, RN) Resting Tone (Palpate): Relaxed (Chantelle Lozano, RN) Monitor Mode: External US (Chantelle Lozano, RN) FHR Baseline Rate : 120 (Chantelle Lozano, RN) FHR Baseline Changes: No Baseline Change (Chantelle Lozano, RN) Variability: Moderate 6-25 bpm (Chantelle Lozano, RN) Accelerations: 15X15 (Chantelle Lozano, RN) Decelerations: None (Chantelle Lozano RN) Pitocin (milliunit): Pitocin Increased to (milliunits) @ (Annotations: 8) (Chantelle Lozano RN) Datetime: 05/27/2016 10:59 NBP Sys/Shelbi/Mean (mmHg): 108 (QS system process) : 64 (QS system process) : 80 (QS system process) Pulse: 78 (QS system process) Datetime: 05/27/2016 10:45 Monitor Mode: External (Chantelle Lozano RN) Frequency (min): 2-3 (Chantlele Lozano RN) Quality: Mild/Moderate (Chantelle Lozano RN) Duration (sec): 80-120 (Chantelle Lozano RN) Duration Criteria: Less than Two 120 Second Contractions (Chantelle Lozano RN) Pattern: Normal: <= 5 Contractions in 10 Minutes (Chantelle Lozano RN) Resting Tone (Palpate): Relaxed (Chantelle Lozano RN) Monitor Mode: External US (Chantelle Lozano RN) FHR Baseline Rate : 125 (Chantelle Lozano RN) FHR Baseline Changes: No Baseline Change (Chantelle Lozano, RN) Variability: Moderate 6-25 bpm (Chantelle Lozano, RN) Accelerations: 15X15 (Chantelle Lozano, RN) Decelerations: None (Chantelle Lozano, RN) Pitocin (milliunit): Pitocin Remains (milliunits) @ (Annotations: 6) (Chantelle Lozano, RN) Datetime: 05/27/2016 10:44 Stage of : Recovery (Chantelle Lozano, DONNA) NBP Sys/Shelbi/Mean (mmHg): 110 (QS system process) : 62 (QS system process) : 81 (QS system process) Pulse: 77 (QS system process) Respirations: 16 (Chantelle Lozano RN) Datetime: 05/27/2016 10:40 Stage of : Labor (Chantelle Lozano, RN) NBP Sys/Shelbi/Mean (mmHg): 126 (QS system process) : 60 (QS system process) : 87 (QS system process) Pulse: 81 (QS system process) Respirations: 14 (Chantelle Lozano RN) LaborFlag: Labor (QS system process) Datetime: 05/27/2016 10:30 Monitor Mode: External; Palpation (Chantelle Lozano, DONNA) Frequency (min): 3-3.5 (Chantelle Lozano, DONNA) Quality: Mild/Moderate (Chantelle Lozano, RN) Duration (sec): 60-90 (Chantelle Lozano, RN) Duration Criteria: Less than Two 120 Second Contractions (Chantelle Lozano, RN) Pattern: Normal: <= 5 Contractions in 10 Minutes (Chantelle Lozano, RN) Resting Tone (Palpate): Relaxed (Chantelle Lozano, RN) Monitor Mode: External US (Chantelle Lozano, RN) FHR Baseline Rate : 120 (Chantelle Lozano, DONNA) FHR Baseline Changes: No Baseline Change (Chantelle Lozano, RN) Variability: Moderate 6-25 bpm (Chantelle Lozano, RN) Accelerations: 15X15 (Chantelle Lozano, RN) Decelerations: None (Chantelle Lozano, RN) Pitocin (milliunit): Pitocin Remains (milliunits) @ (Annotations: 6) (Chantelle Lozano, RN) Communication: RN at Bedside (Chantelle Lozano, RN) Datetime: 05/27/2016 10:27 Pain Scale: 2 (Chantelle Lozano RN) Pain Presence: Intermittent (Chantelle Lozano RN) Pain Type: Contraction (Chantelle Lozano RN) Pain Location: Abdomen (Chantelle Lozano RN) Pain Goal: 1 (Chantelle Lozano RN) Pain Relief Measures: Comfort Measures (Chantelle Lozano RN) Patient Position/Activity: High Fowlers; Tailors (Chantelle Lozano RN) Comfort Measures: Breathing/Relaxation; Family Support (Chantelle Lozano RN) LaborFlag: Labor (QS system process) Datetime: 05/27/2016 10:18 I/O Interventions: Up to BR (Chantelle Lozano RN) Datetime: 05/27/2016 10:15 Monitor Mode: External (Chantelle Lozano RN) Frequency (min): 3-3.5 (Chantelle Lozano RN) Quality: Mild (Chantelle Lozano RN) Duration (sec): 80-120 (Chantelle Lozano RN) Duration Criteria: Less than Two 120 Second Contractions (Chantelle Lozano RN) Pattern: Normal: <= 5 Contractions in 10 Minutes (Chantelle Lozano RN) Resting Tone (Palpate): Relaxed (Chantelle Lozano RN) Monitor Mode: External US (Chantelle Lozano RN) Monitor Interventions for FHR: Ultrasound Adjusted (Chantelle Lozano RN) FHR Baseline Rate : 115 (Chantelle Lozano RN) FHR Baseline Changes: No Baseline Change (Chantelle Lozano RN) Variability: Moderate 6-25 bpm (Chantelle Lozano RN) Accelerations: 10X10 (Chantelle Lozano RN) Decelerations: None (Chantelle Lozano RN) Comments: patient sitting up/forward (Chantelle Lozano RN) Pitocin (milliunit): Pitocin Increased to (milliunits) @ (Annotations: 6) (Chantelle Lozano RN) Datetime: 05/27/2016 10:00 Monitor Mode: External (Chantelle Lozano, DONNA) Monitor Interventions for UA: [place] Adjusted (Chantelle Lozano, DONNA) Frequency (min): 3-4 (Chantelle Lozano RN) Quality: Mild (Chantelle Lozano RN) Duration (sec): 80-120 (Chantelle Lozano RN) Duration Criteria: Less than Two 120 Second Contractions (Chantelle Lozano RN) Pattern: Normal: <= 5 Contractions in 10 Minutes (Chantelle Lozano RN) Resting Tone (Palpate): Relaxed (Chantelle Lozano RN) Monitor Mode: External US (Chantelle Lozano RN) FHR Baseline Rate : 120 (Chantelle Blake, RN) FHR Baseline Changes: No Baseline Change (Chantelle Lozano, RN) Variability: Moderate 6-25 bpm (Chantelle Lozano, RN) Accelerations: 15X15 (Chantelle Lozano, RN) Decelerations: None (Chantelle Lozano, RN) Pitocin (milliunit): Pitocin Remains (milliunits) @ (Annotations: 4) (Chantelle Lozano, RN) Datetime: 05/27/2016 09:45 Monitor Mode: External (Chantelle Lozano, RN) Frequency (min): 5-7 (Chantelle Lozano, RN) Quality: Mild (Chantelle Lozano, RN) Duration (sec): 60-120 (Chantelle Lozano, RN) Duration Criteria: Less than Two 120 Second Contractions (hCantelle Lozano, RN) Pattern: Normal: <= 5 Contractions in 10 Minutes (Chantelle Lozano, RN) Resting Tone (Palpate): Relaxed (Chantelle Lozano, RN) Monitor Mode: External US (Chantelle Lozano, RN) FHR Baseline Rate : 120 (Chantelle Lozano, RN) FHR Baseline Changes: No Baseline Change (Chantelle Lozano, RN) Variability: Moderate 6-25 bpm (Chantelle Bentonard, RN) Accelerations: 15X15 (Chantellerosalia Lozano, RN) Decelerations: None (Chantelle Lozano, RN) Pitocin (milliunit): Pitocin Remains (milliunits) @ (Annotations: 4) (Chantelle Lozano, RN) Datetime: 05/27/2016 09:35 Patient Position/Activity: patient resting (Chantelle Lozano, RN) Datetime: 05/27/2016 09:30 Monitor Mode: External (Chantelle Lozano, RN) Frequency (min): x2 (Chantelle Lozano, RN) Quality: Mild (Chantelle Lozano, RN) Duration (sec): 60/90 (Chantelle Lozano, RN) Duration Criteria: Less than Two 120 Second Contractions (Chantelle Lozano, RN) Pattern: Normal: <= 5 Contractions in 10 Minutes (Chantelle Lozano, RN) Resting Tone (Palpate): Relaxed (Chantelle Lozano, RN) Contraction Comments: irregular pattern (Chantelle Lozano, RN) Monitor Mode: External US (Chantelle Lozano, RN) FHR Baseline Rate : 120 (Chantelle Lozano, RN) FHR Baseline Changes: No Baseline Change (Chantelle Lozano, DONNA) Variability: Moderate 6-25 bpm (Chantelle Lozano, RN) Accelerations: 15X15 (Chantelle Lozano, RN) Decelerations: None (Chantelle Lozano, RN) Pitocin (milliunit): Pitocin Increased to (milliunits) @ (Annotations: 4) (Chantelle Lozano, DONNA) Datetime: 05/27/2016 09:15 Monitor Mode: External (Chantelle Lozano, RN) Monitor Interventions for UA: [place] Adjusted (Chantelle Lozano, RN) Frequency (min): x1 (Chantelle Lozano, RN) Quality: Mild (Chantelle Bentonard, RN) Duration (sec): 60 (Chantelle Bentonard, RN) Duration Criteria: Less than Two 120 Second Contractions (Chantelle Lozano, RN) Pattern: Normal: <= 5 Contractions in 10 Minutes (Chantelle Lozano, RN) Resting Tone (Palpate): Relaxed (Chantelle Lozano, RN) Monitor Mode: External US (Chantelle Lozano, RN) FHR Baseline Rate : 120 (Chantelle Lozano, RN) FHR Baseline Changes: No Baseline Change (Chantelle Lozano, RN) Variability: Moderate 6-25 bpm (Chantelle Andrews, RN) Accelerations: 15X15 (Chantelle Andrews, RN) Decelerations: None (Chantelle Bentonard, RN) Pitocin (milliunit): Pitocin Remains (milliunits) @ (Annotations: 2) (Chantelle Blake, RN) Datetime: 05/27/2016 09:00 Monitor Mode: External (Chantelle Lozano, DONNA) Frequency (min): x2 (Chantelle Lozano, DONNA) Quality: Mild (Chantelle Lozano RN) Duration (sec): 90/100 (Chantelle Lozano, DONNA) Duration Criteria: Less than Two 120 Second Contractions (Chantelle Lozano RN) Pattern: Normal: <= 5 Contractions in 10 Minutes (Chantelle Lozano RN) Resting Tone (Palpate): Relaxed (Chantelle Lozano, DONNA) Monitor Mode: External US (Chantelle Lozano, DONNA) FHR Baseline Rate : 120 (Chantelle Lozano RN) FHR Baseline Changes: No Baseline Change (Chantelle Lozano, DONNA) Variability: Moderate 6-25 bpm (Chantelle Lozano, DONNA) Accelerations: 15X15 (Chantelle Lozano, DONNA) Decelerations: None (Chantelle Lozano RN) Comments: reports positive movement; audible movement noted (Chantelle Lozano, DONNA) Pitocin (milliunit): Pitocin Remains (milliunits) @ (Annotations: 2) (Chantelle Lozano, DONNA) Patient Position/Activity: Left Tilt; High Fowlers; Tailors (Chantelle Lozano, DONNA) Datetime: 05/27/2016 08:48 Pitocin (milliunit): Pitocin Started (milliunits) @ 2 (CHAPO Rodrigues) Pitocin (milliunit): Pitocin Started (milliunits) @ 2 (Chantelle Lozano, DONNA) Datetime: 05/27/2016 08:45 Stage of : Labor (Chantelle Lozano RN) NBP Sys/Shelbi/Mean (mmHg): 101 (QS system process) : 59 (QS system process) : 76 (QS system process) Pulse: 91 (QS system process) Respirations: 14 (Chantelle Lozano RN) LaborFlag: Labor (QS system process) Datetime: 05/27/2016 08:30 Monitor Mode: External; Palpation (Chantelle Lozano RN) Monitor Interventions for UA: [place] Adjusted (Chantelle Lozano RN) Frequency (min): none (Chantelle Lozano RN) Resting Tone (Palpate): Relaxed (Chantelle Lozano RN) Contraction Comments: patient denies (Chantelle Lozano RN) Monitor Mode: External US (Chantelle Lozano RN) FHR Baseline Rate : 120 (Chantelle Lozano RN) FHR Baseline Changes: No Baseline Change (Chantelle Lozano RN) Variability: Moderate 6-25 bpm (Chantelle Lozano RN) Accelerations: 15X15 (Chantelle Lozano RN) Decelerations: None (Chantelle Lozano RN) Comments: patient off monior while using restroom; provider aware (Chantelle Lozano RN) Datetime: 05/27/2016 08:19 I/O Interventions: Up to BR (Chantelle Lozano RN) Datetime: 05/27/2016 08:15 Dilatation (cm): 3.0 (Chantelle Lozano RN) Effacement (%): 50 (Chantelle Lozano RN) Station: -2 (Chantelle Lozano RN) Exam by: Joyce Sykes CNM (Chantelle Lozano RN) Membrane Status: Ruptured (Chantelle Lozano RN) Membranes Rupture Method: Artificial (Chantelle Lozano RN) Amniotic Fluid Color: Clear (Chantelle Lozano RN) Amniotic Fluid Amount: Small (Chantelle Lozano RN) Amniotic Fluid Odor: Normal (Chantelle Lozano RN) Vaginal Bleeding: None (Chantelle Lozano RN) Cervix, Consistency: Soft (Chantelle Lozano RN) Cervix, Position: Midposition (Chantelle Lozano RN) Datetime: 05/27/2016 08:12 Provider Reviewed Strip: Yes (Chantelle Lozano RN) Communication: RN at Bedside; RN Reviewed Strip; Provider at Bedside (Chantelle Lozano RN) Provider Notified (Name): Joyce Sykes CNM at bedside assessing patient (Chantelle Lozano RN) Datetime: 05/27/2016 08:00 Monitor Mode: External (Chantelle Lozano, RN) Frequency (min): x2 (Chantelle Lozano, RN) Quality: Mild (Chantelle Lozano, RN) Duration (sec): 120/150 (Chantelle Lozano, RN) Duration Criteria: Less than Two 120 Second Contractions (Chnatelle Lozano, RN) Resting Tone (Palpate): Relaxed (Chantelle Lozano, RN) Monitor Mode: External US (Chantelle Lozano, RN) FHR Baseline Rate : 120 (Chantelle Lozano RN) FHR Baseline Changes: No Baseline Change (Chantelle Lozano, RN) Variability: Moderate 6-25 bpm (Chantelle Lozano, RN) Accelerations: 15X15 (Chantelle Lozano, RN) Decelerations: None (Chantelle Lozano, RN) Datetime: 05/27/2016 07:46 Monitor Interventions for UA: [place] Adjusted (Chantelle Lozano, DONNA) Monitor Mode: External US (Chantelle Lozano, RN) Monitor Interventions for FHR: Ultrasound Adjusted (Chantelle Lozano, RN) FHR Baseline Rate : 120 (Chantelle Lozano, RN) Variability: Moderate 6-25 bpm (Chantelle Lozano, RN) Accelerations: 15X15 (Chantelle Lozano, RN) Decelerations: None (Chantelle Lozano, RN) Pain Scale: 0 (Chantelle Lozano, DONNA) Pain Presence: None/Denies (Chantelle Lozano, RN) Pain Type: N/A (Chantelle Lozano, RN) Pain Goal: 1 (Chantelle Lozano, RN) Pain Relief Measures: Comfort Measures (Chantelle Lozano, DONNA) Vaginal Bleeding: None (Chantelle Lozano, RN) Level of Consciousness: Fully Conscious (Chantelle Lozano, RN) DTR's/Clonus: DTRs 2+; No Clonus (Chantelle Lozano, RN) Headache: Denies (Chantelle Lozano, RN) Breath Sounds, Left: Clear and Equal (Chantelle Lozano, RN) Breath Sounds, Right: Clear and Equal (Chantelle Lozano, RN) Nausea/Vomiting: Denies (Chantelle Lozano, RN) RUQ Epigastric Pain: Denies (Chantelle Lozano, RN) IV/Blood Work: IV Infusing per Order (Chantelle Lozano, DONNA) Oxygen Method: Room Air (Chantelle Lozano, RN) Patient Position/Activity: Left Tilt; Semi-Fowlers (Chantelle Lozano, RN) Comfort Measures: Breathing/Relaxation; Family Support (Chantelle Lozano, RN) I/O Interventions: Clear Liquids Given (Chantelle Lozano, RN) Instructional Method: Verbal; Written; Family/Support Person Instructed; Verbalized Understanding (Chantelle Lozano, RN) Plan of Care: Plan of Care Discussed; Vaginal Delivery; Labor; Induction (Chantelle Lozano, DONNA) Unit Routine: [place] to Room; Call [place]; Bed; Visiting Policy; Waiting Areas; Security; Phone/Cell Phone Use; Photography; Unit Personnel; Consents Signed; Handwashing; Flu/Illness Precautions; Monitoring; IV Pumps; Safety/Fall Risk Prevention; Diet/Nutrition Services; Bathroom Privileges; Routine Time Outs; Medications (Chantelle Lozano, RN) Labor/Induction: Labor Stages; Augmentation; Induction; Artificial Rupture of Membranes; Interventions; Activity; Pushing Methods (Chantelle Lozano, RN) Pain Management: IV Narcotics; Epidural; PRN Medications; Pain Scale/Goals; Comfort Measures (Chantelle Lozano, RN) Medications: IV Narcotics; Pitocin (Chantelle Lozano, RN) PTL/PROM: Hydration; Signs/Symptoms of Infection; Expected Outcomes (Chantelle Lozano, DONNA) Related: Common Discomforts of ; Maternal Physical Changes; Maternal Emotional Changes; Nutrition; Hydration; Activity and Rest (Chantelle Lozano, RN) LaborFlag: Labor (QS system process) Datetime: 05/27/2016 07:42 IV/Blood Work: IV Started; IV Bolus Started; New IV Bag Hung; IV Bag Number @ 1 (Chantelle Lozano, DONNA) Procedures: Consents Signed (Chantelle Lozano RN) Patient Position/Activity: Left Tilt; Semi-Fowlers (Chantelle Lozano, DONNA) Datetime: 05/27/2016 07:30 Monitor Mode: External; Palpation (Chantelle Lozano RN) Frequency (min): 3-5 (Chantelle Lozano, DONNA) Quality: Mild (Chantelle Lozano, DONNA) Duration (sec): 60-120 (Chantelle Lozano, DONNA) Duration Criteria: Less than Two 120 Second Contractions (Chantelle Lozano, RN) Resting Tone (Palpate): Relaxed (Chantelle Lozano, RN) Contraction Comments: patient reports feling abdominal tightening (Chantelle Lozano, DONNA) Monitor Mode: External US (Chantelle Lozano RN) Monitor Interventions for FHR: Ultrasound Adjusted (Chantelle Lozano, RN) FHR Baseline Rate : 125 (Chantelle Lozano, RN) FHR Baseline Changes: No Baseline Change (Chantelle Lozano RN) Variability: Moderate 6-25 bpm (Chantelle Lozano, RN) Accelerations: 15X15 (Chantelle Lozano, RN) Decelerations: None (Chantelle Lozano, RN) Comments: periods of matertnal heart rate noted (Chantelle Lozano, DONNA) Communication: RN at Bedside (Chantelle Lozano RN) Datetime: 05/27/2016 07:12 IV/Blood Work: Labs Drawn (Madalyn Choi RN) Datetime: 05/27/2016 07:02 Stage of : Labor (Chantelle Lozano RN) NBP Sys/Shelbi/Mean (mmHg): 96 (QS system process) : 53 (QS system process) : 71 (QS system process) Pulse: 88 (QS system process) Respirations: 12 (Chantelle Lozano RN) LaborFlag: Labor (QS system process)
[2016-05-27 19:06] LABS: ABSOLUTE BASOPHILS # (AUTO) 0.1 10^3/uL (0.0-0.2); ABSOLUTE LYMPHOCYTES (AUTO) 2.4 10^3/uL (0.5-4.7); ABSOLUTE MONOCYTES (AUTO) 1.4 10^3/uL (0.1-1.4); ABSOLUTE NEUT (AUTO) 11.5 10^3/uL (1.7-8.2); BASOPHILS % (AUTO) 0.4 % (0-2); EOSINOPHILS % (AUTO) 0.3 % (0-6); HEMOGLOBIN 9.5 g/dL (12.0-15.5); HGB HCT DIFFERENCE -1.5; LYMPHOCYTES % (AUTO) 15.7 % (13-45); MEAN CORPUSCULAR HEMOGLOBIN 24.8 pg (27.0-33.4); MEAN CORPUSCULAR HGB CONC 31.7 g/dL (32.0-36.0); MEAN CORPUSCULAR VOLUME 78 fl (80-97); MONOCYTES % (AUTO) 8.9 % (3-13); RED BLOOD COUNT 3.83 10^6/uL (3.72-5.28); RED CELL DISTRIBUTION WIDTH 19.3 % (11.5-14.0); SEGMENTED NEUTROPHILS % (AUTO) 74.7 % (42-78); WHITE BLOOD COUNT 15.4 10^3/uL (4.0-10.5)
[2016-05-27] MEDS ORDERED: METHYLERGONOVINE MALEATE INJ/PF 0.2 MG/1 ML AMPULE IM ONE (19:30)
[2016-05-27] MEDS: ACETAMINOPHEN WITH CODEINE #3 TABLET PO PRN (19:54)
[2016-05-27] MEDS: IBUPROFEN 800 MG TABLET PO SCH (21:43)
[2016-05-28] MEDS: ACETAMINOPHEN WITH CODEINE #3 TABLET PO PRN ×3 (00:04→13:26)
[2016-05-28] MEDS: IBUPROFEN 800 MG TABLET PO SCH ×3 (05:11→22:54)
--- NOTE | 2016-05-28 06:01 | L&D Current Admission ---
Current Admit Datetime Report Generated by CPN: 05/28/2016 06:00 ADMISSION INFORMATION Current Admit Date/Time: 05/27/2016 06:51 (05/27/2016 06:51:Madalyn Choi RN) Reason for Admission: Induction of Labor (05/27/2016 06:51:Madalyn Choi RN) Chief Complaint: Scheduled Induction of Labor (05/27/2016 07:46:Chantelle Lozano RN) Medications During : Vitamin (05/27/2016 06:51:Madalyn Choi RN) EGA per Dates: 41.0 (05/27/2016 06:51:QS system process) Method of Arrival: Wheelchair (05/27/2016 06:51:Madalyn Choi RN) Admitted From: Home (05/27/2016 06:51:Madalyn Choi RN) Reason for Induction: Postterm (05/27/2016 06:51:Madalyn Choi RN) Records Available: Yes (05/27/2016 06:51:Madalyn Choi RN) General Admission Information: Reviewed (05/27/2016 06:51:Madalyn Choi RN) General Admission Reviewed By: Giana Choi RN (05/27/2016 06:51:Madalyn Choi RN) BELONGINGS/ADVANCED DIRECTIVES Valuables/Personal Effects: Purse/Wallet; Cell Phone; Jewelry (05/27/2016 06:51:Chantelle Lozano RN) Other Belongings: See [facility] belongings form (05/27/2016 06:51:Madalyn Choi RN) Disposition of Belongings: Kept with Patient (05/27/2016 06:51:Chantelle Lozano RN) Advance Direct for Healthcare: No, and Wants No Information (05/27/2016 06:51:Chantelle Lozano RN) Durable Power of Shipping Support Clerk: No (05/27/2016 06:51:Chantelle Lozano RN) Living Will: No (05/27/2016 06:51:Chantelle Lozano RN) Organ Donor: No (05/27/2016 06:51:Chantelle Lozano RN) Pt Rights Information Given: Yes (05/27/2016 06:51:Chantelle Lozano RN) Pt Understands Pt Rights: Yes (05/27/2016 06:51:Chantelle Lozano RN) LEARNING ASSESSMENT Knowledge Level: Understands L_D Process; Understands Care Activities; Had Pre-Hospital Education; Understands Diagnosis (05/27/2016 06:51:Chantelle Lozano RN) Barriers to Learning: None (05/27/2016 06:51:Chantelle Lozano RN) Learning Readiness: Motivated (05/27/2016 06:51:Chantelle Lozano RN) Learns Best By: 1 to 1 Instruction (05/27/2016 06:51:Chantelle Lozano RN) Learning Needs: Labor and Delivery Process; Pain Management; Symptoms to Report; Treatment Plan; Medication; Diagnosis; Nutrition; Equipment; Infant Care; Community Resources (05/27/2016 06:51:Chantelle Lozano RN) DOMESTIC VIOLANCE SCREENING Dom Viol Threatened/Hurt: No (05/27/2016 06:51:Chantelle Lozano RN) Hx of Abuse/Neglect past 2yrs: No (05/27/2016 06:51:Chantelle Lozano RN) Feel Unsafe Going Home: No (05/27/2016 06:51:Chantelle Lozano RN) Addt'l Observ Indicating Abuse: No (05/27/2016 06:51:Chantelle Lozano RN) Reason Unable to Complete Screen: N/A, Screen Completed (05/27/2016 06:51:Chantelle Lozano RN) Considered Personal Harm/Suicide: No (05/27/2016 06:51:Chantelle Lozano RN) NUTRITIONAL/FUNCTIONAL SCREENING Problem with Appetite >5 Days: No (05/27/2016 06:51:Chantelle Lozano RN) Chew/Swallow Difficulties: No (05/27/2016 06:51:Chantelle Lozano RN) Inappropriate Wt Gain/Loss: No (05/27/2016 06:51:Chantelle Lozano RN) Presence Skin Breakdown/Ulcer: No (05/27/2016 06:51:Chantelle Lozano RN) Special Diet: No (05/27/2016 06:51:Chantelle Lozano RN) Pt Requests Pelt Grader Visit: No (05/27/2016 06:51:Chantelle Lozano RN) Hx of Any of the Following?: N/A (05/27/2016 06:51:Chantelle Lozano RN) New Diagnosis of: N/A (05/27/2016 06:51:Chantelle Lozano RN) Requires Assist w/Ambulation: No (05/27/2016 06:51:Chantlele Lozano RN) Uses Assist Device to Ambulate: No (05/27/2016 06:51:Chantelle Lozano RN) Pt Requires Help w/ADL's: No (05/27/2016 06:51:Chantelle Lozano RN)
--- NOTE | 2016-05-28 06:01 | L&D General Admission ---
General Admit Datetime Report Generated by CPN: 05/28/2016 06:00 INFORMATION Patient Age: 25 (04/26/2016 16:12:QS system process) EDC: 05/20/2016 00:00 (04/26/2016 16:26:Kandace Galvan RN) : 3 (04/26/2016 16:26:Kandace Galvan RN) Para: 1 (04/26/2016 19:07:Eedn Hansen RN) Term: 1 (04/26/2016 16:26:Madalyn Choi RN) : 0 (04/26/2016 16:26:Madalyn Choi RN) Spontaneous Abortions: 0 (04/26/2016 16:26:Madalyn Choi RN) Induced Abortions: 1 (04/26/2016 16:26:Madalyn Choi RN) Livin (04/26/2016 16:26:Kandace Galvan RN) Cesareans: 0 (04/26/2016 16:26:Madalyn Choi RN) VBACs: 0 (04/26/2016 16:26:Madalyn Choi RN) Ectopic: 0 (04/26/2016 16:26:Madalyn Choi RN) Multiple Births: 0 (04/26/2016 16:26:Madalyn Choi RN) Baby, Number in Womb: 1 (04/26/2016 19:07:Eden Hansen RN) CARE Primary Sales Agent Casualty Insurance: [employer] [facility] (04/26/2016 16:26:Kandace Galvan RN) Month of 1st Visit: September 2015 (04/26/2016 16:26:Chantelle Lozano RN) Adequate Care: Yes (04/26/2016 16:26:Chantelle Lozano RN) Prepregnancy Weight (lb): 155 (04/26/2016 16:26:Kandace Galvan RN) Prepregnancy Weight (kg): 70.5 (04/26/2016 16:26:QS system process) Height (in): 61 (05/27/2016 16:56:QS system process) ALLERGIES Medication Allergy: No (04/26/2016 16:26:Eden Hansen RN) Medication Allergies: No Known Allergies (05/27/2016) (05/27/2016 06:50:QS system process) Latex Allergy: No Latex Allergies (04/26/2016 16:26:Eden Hansen RN) Food Allergies: denies (04/26/2016 16:26:Chantelle Lozano RN) Environmental Allergies: denies (04/26/2016 16:26:Chantelle Lozano RN) COMMUNICATION Primary Language: Chilean (04/26/2016 16:26:Chantelle Lozano RN) Medical Tx Preferred Language: Chilean (04/26/2016 16:26:Madalyn Choi RN) Communication Barrier(s): None (04/26/2016 16:26:Chantelle Lozano RN) DEMOGRAPHICS Address: [address] [place] [address] [place] [address] (04/26/2016 16:12:QS system process) Zipcode: [id number] (04/26/2016 16:12:QS system process) Home (04/26/2016 16:12:QS system process) N: [id number] (04/26/2016 16:12:QS system process) Next of Kin Name: SHALONDA BRAVO (04/26/2016 16:12:QS system process) Next of Kin (04/26/2016 16:12:QS system process) Next of Kin Relationship: MO (04/26/2016 16:12:QS system process) Date of : 1990 (04/26/2016 16:12:QS system process) Marital Status: Single (04/26/2016 16:12:QS system process) Sex: Female (04/26/2016 16:12:QS system process) Race: (04/26/2016 16:12:QS system process) Ethnicity: Non- or (04/26/2016 16:12:QS system process) Latter-Day: Other (04/26/2016 16:12:QS system process) DRUG AND ALCOHOL USE Alcohol: No (04/26/2016 16:26:Eden Hansen RN) Cigarettes: Former Smoker. [id number] (04/26/2016 16:26:Chantelle Lozano RN) Marijuana: No (04/26/2016 16:26:Eden Hansen RN) Cocaine: No (04/26/2016 16:26:Eden Hansen RN) Other Illicit Drugs: No (04/26/2016 16:26:Eden Hansen RN) VACCINE HISTORY Influenza Vaccine: No (04/26/2016 16:26:Chantelle Lozano RN) Pneumococcal Vaccine: No (04/26/2016 16:26:Chantelle Lozano RN) Tetanus Vaccine: Yes (04/26/2016 16:26:Madlayn Choi RN) Tdap Vaccine: Yes (04/26/2016 16:26:Chantelle Lozano RN) Hepatitis B Vaccine: Yes (04/26/2016 16:26:Chantelle Lozano RN) Administrative Representative: [facility] (04/26/2016 16:26:Chantelle Lozano RN) Feeding Preference: Breast (04/26/2016 16:26:Chantelle Lozano RN) Benefit of Breast Feed Discussed: Yes (04/26/2016 16:26:Chantelle Lozano RN) Circumcision: Yes (04/26/2016 16:26:Chantelle Lozano RN) Classes Attended: No (04/26/2016 16:26:Chantelle Lozano RN) Tubal Ligation: No (04/26/2016 16:26:Chantelle Lozano RN) Tubal Authorization Signed: N/A (04/26/2016 16:26:Chantelle Lozano RN) Consent: N/A (04/26/2016 16:26:Chantelle Lozano RN) Consent Signed: N/A (04/26/2016 16:26:Chantelle Lozano RN) Pain Management Plans: Epidural (04/26/2016 16:26:Eden Hansen RN) Plans for Labor and Delivery: None (04/26/2016 16:26:Eden Hansen RN) Support Person: Curt Miles (04/26/2016 16:26:Chantelle Lozano RN) Support Person Relationship: Significant Other (04/26/2016 16:26:Chantelle Lozano RN) Cultural/Spritual Practice: No (04/26/2016 16:26:Chantelle Lozano RN) Spir/Cult Dietary Needs: No (04/26/2016 16:26:Chantelle Lozano RN) LIVING SITUATION/DISCHARGE PLAN Living Arrangements: House (04/26/2016 16:26:Chantelle Lozano RN) Adequate Access to:: Electric; Heat; Refrigeration; Plumbing/Running water; Phone; Transportation (04/26/2016 16:26:Chantelle Lozano RN) WIC Program: No (04/26/2016 16:26:Chantlele Lozano RN) Discharge Mangle Catcher Person: Curt Miles (04/26/2016 16:26:Chantelle Lozano RN) Person to Help after Discharge: Curt Miles (04/26/2016 16:26:Chantelle Lozano RN) Currently Using Commun Resources: No (04/26/2016 16:26:Chantelle Lozano RN) Outside Agency/Gift Wrapper: No (04/26/2016 16:26:Chantelle Lozano RN) Car Seat for Discharge: Yes (04/26/2016 16:26:Chantelle Lozano RN) Adoption Requested: No (04/26/2016 16:26:Chantelle Lozano RN) Pt Contact w/infant Post : N/A (04/26/2016 16:26:Chantelle Lozano RN) LABS Blood Type: A Positive (04/26/2016 16:26:Kandace Galvan RN) Antibody Screen: Negative (04/26/2016 16:26:Kandace Galvan RN) Hemoglobin: 9.5 L (05/27/2016 19:00:QS system process) Hematocrit: 30.0 L (05/27/2016 19:00:QS system process) MCV: 78 L (05/27/2016 19:00:QS system process) Group Beta Strep: Negative (04/26/2016 16:26:Chantelle Lozano RN) Gonorrhea: Negative (04/26/2016 16:26:Kandace Galvan RN) Chlamydia: Negative (04/26/2016 16:26:Kandace Galvan RN) RPR/VDRL: Nonreactive (04/26/2016 16:26:Kadnace Galvan RN) HIV Exposure Test: Negative (04/26/2016 16:26:Kandace Galvan RN) HIV Results: non-reactive (04/26/2016 16:26:Soila eMndoza RN) Hepatitis B: Negative (04/26/2016 16:26:Kandace Galvan RN) Rubella: Non-Immune (04/26/2016 16:26:Kandace Galvan RN) OB/PREVIOUS HISTORY Previous Procedures: Ultrasound; NST (04/26/2016 16:26:Eden Hansen RN) Current Procedures: Ultrasound; NST (04/26/2016 16:26:Eden Hansen RN) History of Previous : No (04/26/2016 16:26:Eden Hansen RN) History of Gestational Diabetes: No (04/26/2016 16:26:Eden Hansen RN) History of PIH: No (04/26/2016 16:26:Eden Hansen RN) History of Incompetent Cervix: No (04/26/2016 16:26:Eden Hansen RN) History of Placenta Previa/Abrup: No (04/26/2016 16:26:Eden Hansen RN) History of Macrosomia: No (04/26/2016 16:26:Eden Hansen RN) History of IUGR: No (04/26/2016 16:26:Eden Hansen RN) History of Hemorrhage: No (04/26/2016 16:26:Eden Hansen RN) History of Loss/Stillborn: No (04/26/2016 16:26:Eden Hansen RN) History of : No (04/26/2016 16:26:Eden Hansen RN) History of D (Rh) Sensitization: No (04/26/2016 16:26:Eden Hansen RN) History Recurrent Loss/Stillborn: No (04/26/2016 16:26:Eden Hansen RN) History Depression/PP Depression: No (04/26/2016 16:26:Eden Hansen RN) History of Uterine Anomaly/BK: No (04/26/2016 16:26:Eden Hansen RN) History of Infertility: No (04/26/2016 16:26:Eden Hansen RN) History of ART Treatment: No (04/26/2016 16:26:Eden Hansen RN) History of BK: No (04/26/2016 16:26:Eden Hansen RN) Comments Obstetrical History: G1: AB 9 wk G2:2011 40.4 weeks 10 lb 6 oz ? G3: current (04/26/2016 16:26:Madalyn Choi RN) MEDICAL HISTORY Med Hx Diabetes: No (04/26/2016 16:26:Eden Hansen RN) Med Hx Hypertension: No (04/26/2016 16:26:Eden Hansen RN) Med Hx Heart Disease: No (04/26/2016 16:26:Eden Hansen RN) Med Hx Autoimmune Disorder: No (04/26/2016 16:26:Eden Hansen RN) Med Hx Kidney Disease/UTI: No (04/26/2016 16:26:Eden Hansen RN) Med Hx Neurologic/Epilepsy: No (04/26/2016 16:26:Eden Hansen RN) Med Hx Psychiatric Disorders: No (04/26/2016 16:26:Eden Hansen RN) Med Hx Hepatitis/Liver Disease: No (04/26/2016 16:26:Eden Hansen RN) Med Hx Varicosities/Phlebitis: No (04/26/2016 16:26:Eden Hansen RN) Med Hx Thyroid Dysfunction: No (04/26/2016 16:26:Eden Hansen RN) Med Hx Trauma/Violence: No (04/26/2016 16:26:Eden Hansen RN) Med Hx Blood Transfusion: No (04/26/2016 16:26:Eden Hansen RN) Med Hx Pulmonary (Asthma,TB): No (04/26/2016 16:26:Eden Hansen RN) Med Hx Breast: No (04/26/2016 16:26:Eden Hansen RN) Med Hx FOREST ECOLOGIST Surgery: No (04/26/2016 16:26:Eden Hansen RN) Med Hx Hospitalization/Surgery: Yes (04/26/2016 16:26:Madalyn Choi RN) Med Hx Anesthetic Complications: No (04/26/2016 16:26:Eden Hansen RN) Med Hx Abnormal Pap Smear: No (04/26/2016 16:26:Eden Hansen RN) Other Medical Diseases: No (04/26/2016 16:26:Eden Hansen RN) Med Hx Significant Family Hx: No (04/26/2016 16:26:Eden Hansen RN) Details of Med/Surg Hx: hospitalization childbirth (04/26/2016 16:26:Madalyn Choi RN) INFECTIOUS HISTORY Inf Hx Gonorrhea: No (04/26/2016 16:26:Eden Hansen RN) Inf Hx Chlamydia: No (04/26/2016 16:26:Eden Hansen RN) Inf Hx Syphilis: No (04/26/2016 16:26:Eden Hansen RN) Inf Hx HIV/AIDS: No (04/26/2016 16:26:Eden Hansen RN) Inf Hx Human Papilloma Virus: No (04/26/2016 16:26:Eden Hansen RN) Inf Hx Pt/Partner Genital Herpes: No (04/26/2016 16:26:Eden Hansen RN) Inf Hx Tuberculosis/Exposure: No (04/26/2016 16:26:Eden Hansen RN) Inf Hx Hepatitis B,C: No (04/26/2016 16:26:Eden Hansen RN) Inf Hx Rash or Viral Illness: No (04/26/2016 16:26:Eden Hansen RN) GENETIC HISTORY Gen Hx Age >=35 at TOMASZ: No (04/26/2016 16:26:Eden Hansen RN) Gen Hx Thalassemia: No (04/26/2016 16:26:Eden Hansen RN) Gen Hx Congenital Heart Defect: No (04/26/2016 16:26:Eden Hansen RN) Gen Hx Neural Tube Defect: No (04/26/2016 16:26:Eden Hansen RN) Gen Hx Down's Syndrome: No (04/26/2016 16:26:Eden Hansen RN) Gen Hx Bayron-Sachs: No (04/26/2016 16:26:Eden Hansen RN) Gen Hx Hugh: No (04/26/2016 16:26:Eden Hansen RN) Gen Hx Familial Dysautonomia: No (04/26/2016 16:26:Eden Hansen RN) Gen Hx Sickle Cell Disease/Trait: No (04/26/2016 16:26:Eden Hansen RN) Gen Hx Hemophilia/Blood Disorder: No (04/26/2016 16:26:Eden Hansen RN) Gen Hx Muscular Dystrophy: No (04/26/2016 16:26:Eden Hansen RN) Gen Hx Cystic Fibrosis: No (04/26/2016 16:26:Eden Hansen RN) Gen Hx Huntingtons Chorea: No (04/26/2016 16:26:Eden Hansen RN) Gen Hx Mental Retardation/Autism: No (04/26/2016 16:26:Eden Hansen RN) Gen Hx Tested for Fragile X: No (04/26/2016 16:26:Eden Hansen RN) Gen Hx Other Inher/Chromosomal: No (04/26/2016 16:26:Eden Hansen RN) Gen Hx Maternal Metabolic DO: No (04/26/2016 16:26:Eden Hansen RN) Gen Hx Pt Father or FOB Defect: No (04/26/2016 16:26:Eden Hansen RN) Gen Hx Other Genetic History: No (04/26/2016 16:26:Eden Hansen RN) Gen Hx Drugs/Meds since LMP: No (04/26/2016 16:26:Eden Hansen RN)
--- NOTE | 2016-05-28 06:16 | L&D Care Plan ---
LD CARE PLANS Datetime Report Generated by CPN: 05/28/2016 06:15 Datetime: 05/27/2016 06:54 State: Risk For (Madalyn Choi RN) Related To: Labor and Delivery Process; Treatment and Procedures (Madalyn Choi RN) Goal(s): Patients Pain will be Assessed and Managed; Patient will Verbalize Adequate Relief of Pain or the Ability to [place] with Current Pain (Madalyn Choi RN) Interventions: Assess Pain Severity on Scale of 0 (None) to 5 (Severe); Assess Type, Location and Intensity of Pain Each Time Client Reports Discomfort and Notify Provider if Unusal Pain Develops; Encourage Proper Breathing and Relaxation Techniques; Offer Alternatives Such as Repositioning, Calm Environment, Massages, Diversional Activities, Ice Pack, Splinting, and Ambulation; Administer Analgesics as Ordered; Assist with Epidural Placement as Appropriate; Evaluate Therapeutic Effectiveness of Medication and Treatments (Madalyn Choi RN) Outcome: Patient will Report Absence or Relief of Pain Consistent with Established Pain Goal (Madalyn Choi RN) Status: Ongoing (Madalyn Choi RN) Outcome: Patient will have a Decrease in Signs and Symptoms of Discomfort (Madalyn Choi RN) Status: Ongoing (Madalyn Choi RN) Outcome: Pain will be Controlled During Procedures (Madalyn Choi RN) Status: Ongoing (Madalyn Choi RN) State: Risk For (Madalyn Choi RN) Related To: Labor and Delivery Process; Perceived or Actual Threat to ; Fear of Unknown; Situational Crisis; Medical Interventions; Significant Life Event (Madalyn Choi RN) Goal(s): Patient will have Decreased Anxiety and be able to Function at Acceptable Levels (Madalyn Choi RN) Interventions: Assess Verbal and Nonverbal Behavioral Indicators of Anxiety; Assist Patient to Identify and Verbalize Symptoms of Anxiety; Identify and Demonstrate Techniques to Control Anxiety; Assist Patient with Coping Mechanisms to Manage Anxiety; Provide Theraputic Touch for the Patient; Explain to Patient, Using a Calm Reassuring Approach and Nonmedical Terms, All Activities, Procedures, and Concerns; Instruct Patient and Family about Post Discharge Care, Limitations, Symptoms to Report and Resources Available (Madalyn Choi RN) Outcome: Patient will Identify, Verbalize and Demonstrate Techniques to Control Anxiety (Madalyn Choi RN) Status: Ongoing (Madalyn Choi RN) Outcome: Patient's Posture, Facial Expressions, Gestures and Activity Level will Reflect Decreased Anxiety (Madalyn Choi RN) Status: Ongoing (Madalyn Choi RN) Outcome: Patient will Verbalize a Sense of Control and/or Acceptance of the Situation (Madalyn Choi RN) Status: Ongoing (Madalyn Choi RN) Outcome: Patient will Identify and Utilize Support Person (Madalyn Choi RN) Status: Ongoing (Madalyn Choi RN) State: Risk For (Madalyn Choi RN) Related To: Labor and Delivery Process; Treatment and Procedures (Madalyn Choi RN) Goal(s): Patient will Accurately Verbalize Understanding of Plan of Care and Treatment; Patient and Family will Accurately Verbalize Understanding of the Disease Process (Madalyn Choi RN) Interventions: Assess Motivation and Willingness of Patient/Family to Learn; Assess Preferred Learning Mode: One to One Instruction, Reading, Videos, Group Discussion or Demonstration; Assess Barriers to Learning: Pain, Emotional State, Language Barrier, Cognitive Impairment, Visual or Hearing Deficits; Assess Patient and Family Knowledge of Disease Process, Medications and Treatment; Discuss Therapy and/or Treatment Options, Describe Rationale Behind Management, Therapy and Treatment Recommendations; Instruct Patient and Family on Signs and Symptoms to Report; Instruct Patient and Family on Medication Effects and Side Effects; Provide Appropriate and Timely Education Using Multiple Techniques; Provide Patient and Family with Support Group Information and Resources; Give Clear and Thorough Explanations and Demonstrations (Madalyn Choi RN) Outcome: Patient and Family will Verbalize Understanding of Condition, Treatment and Signs and Symptoms to Report (Madalyn Choi RN) Status: Ongoing (Madalyn Choi RN) Outcome: Patient will Identify Perceived Learning Needs and Express Motivation to Learn (Madalyn Choi RN) Status: Ongoing (Madalyn Choi RN) Outcome: Patient will Verbalize Understanding of Desired Content, and/or Performs Desired Skill Prior to Discharge (Madalyn Choi RN) Status: Ongoing (Madalyn Choi RN) State: Risk For (Madalyn Choi RN) Related To: Invasive Procedures (Madalyn Choi RN) Goal(s): The Patient will be Free of Infection, Vital Signs Stable and Lab Work within Normal Parameters (Madalyn Choi RN) Interventions: Instruct and Reinforce Proper Handwashing, Hygiene, and Care Techniques to Patient and Family; Monitor Vital Signs; Monitor Patient for the Following Signs of Infection: Fever, Abdominal Tenderness, Unusual Discharge; Monitor Aminiotic Fluid, Urine and Lochia for Color and Odor; Observe Wounds, Incisions and Invasive Line Sites for Redness, Drainage and Edema; Assess IV Sites per Hospital Policy; Monitor Lab and Test Results and Notify Provider of Abnormal Findings; Assess Nutritional Status and Promote Good Nutrition (Madalyn Choi RN) Outcome: Patient will Remain Free of Infection (Madalyn Choi RN) Status: Ongoing (Madalyn Choi RN) Outcome: Infection will be Recognized Early to Allow for Prompt Treatment (Madalyn Choi RN) Status: Ongoing (Madalyn Choi RN) Outcome: Patient will have Vital Signs Within Expected Range (Madalyn Choi RN) Status: Ongoing (Madalyn Choi RN) State: Risk For (Madalyn Choi RN) Related To: Labor and Delivery Process (Madalyn Choi RN) Goal(s): Patient will Remain Free from Injury (Madalyn Choi RN) Interventions: Monitoring as per Hospital Protocol; Assess Neurological Status; Perform Risk Assessment of Patients with Induction and ; Perform Fall Risk Assessment and Prevention per Hospital Protocol; Perform DVT Risk Assessment and Prophylaxis per Hospital Protocol; Ensure that Oxygen, Suction, and Resuscitation Medications and Equipment are Readily Available; Confirm Patient ID Prior to Procedure(s) and Medication Administration per Hospital Policy (Madalyn Choi RN) Outcome: Successful Fall Risk Prevention (Madalyn Choi RN) Status: Ongoing (Madalyn Choi RN) Outcome: Patient will Deliver Infant without Adverse Sequela (Madalyn Choi RN) Status: Ongoing (Madalyn Choi RN) Outcome: Patient's Neurological Status will Remain Stable (Madalyn Choi RN) Status: Ongoing (Madalyn Choi RN) State: Risk For (Chantelle Lozano RN) Related To: Vaginal Delivery; Prolonged Bedrest; Altered Tissue Integrity; Invasive Procedures (Chantelle Lozano RN) Goal(s): Patient will Maintain Optimal Skin Integrity, Free of Breakdown, Injury or Infection (Chantelle Lozano, DONNA) Interventions: Complete Screening for Pressure Ulcer Risk and Initiate Protocol per Hospital Policy; Monitor Site of Skin Impairment for Color Changes, Redness, Swelling, Warmth, Pain or Other Signs of Infection; Encourage and Assist with Position Changes; Monitor Patient's Mobility Status; Provide Adequate Nutrition and Fluids; Teach Patient Appropriate Hygienic Care; Teach Patient/Family Skin Care Management (Chantelle Lozano, DONNA) Outcome: Patient will not have Evidence of Injury Such as Skin Breakdown, Scrapes, Cuts, or Bruising (Chantelle Lozano, RN) Status: Ongoing (Chantelle Lozano, DONNA) Outcome: Patient will Report Any Altered Sensation or Pain at Site of Skin Impairment (Chantelle Lozano, RN) Status: Ongoing (Chantelle Lozano, DONNA) Outcome: Patient will Demonstrate Understanding of Plan to Heal Skin and Prevent Reinjury and Verbalize Risk Factors (Chantelle Lozano, DONNA) Status: Ongoing (Chantelle Lozano RN) Status: Ongoing (Chantelle Lozano, DONNA)
[2016-05-28 08:05] LABS: HEMATOCRIT 29.8 % (36.0-47.0); HEMOGLOBIN 9.7 g/dL (12.0-15.5); HGB HCT DIFFERENCE -0.7; MEAN CORPUSCULAR HEMOGLOBIN 25.7 pg (27.0-33.4); MEAN CORPUSCULAR HGB CONC 32.6 g/dL (32.0-36.0); MEAN CORPUSCULAR VOLUME 79 fl (80-97); RED BLOOD COUNT 3.78 10^6/uL (3.72-5.28); RED CELL DISTRIBUTION WIDTH 18.5 % (11.5-14.0); WHITE BLOOD COUNT 12.9 10^3/uL (4.0-10.5)
[2016-05-28] MEDS: DOCUSATE SODIUM 100 MG CAPSULE PO SCH ×2 (09:02→17:43)
[2016-05-28] MEDS: PRENATAL VITAMIN W-O CA NO5/FE FUMARATE/FA CAPSULE PO SCH (09:02)
[2016-05-28] MEDS: FERROUS SULFATE 325 MG TABLET PO SCH ×2 (09:02→17:43)
[2016-05-28] MEDS: SENNOSIDES/DOCUSATE 8.6-50 MG 1 EACH TABLET PO SCH (09:02)
--- NOTE | 2016-05-28 10:38 | PDOC PROGRESS REPORT ---
Subjective-OB Subjective: Post Delivery Day: 1 25 year old. Denies any needs at this time, voiding without difficulty, pain well controlled, lochia is stable Physical Exam (OB) Vital Signs: Temp Pulse Resp BP Pulse Ox 97.8 F 79 16 103/59 L 100 05/28/16 08:00 05/28/16 08:00 05/28/16 08:00 05/28/16 08:00 05/28/16 08:00 Intake & Output 05/27/16 05/28/16 05/29/16 06:59 06:59 06:59 Intake Total 900 Balance 900 Weight 81.95 kg - Lochia Lochia Amount: Scant < 10 ml Lochia Color: Rubra/Red - Abdomen Description: Tender, Soft Hernia Present: No Fundal Description: Firm, Midline Fundal Height: u/u - u/2 Objective-Diagnostic Laboratory: 05/28/16 07:30 05/27/16 05/27/16 05/27/16 07:09 07:09 19:00 WBC 8.5 15.4 H RBC 4.40 3.83 Hgb 11.4 L 9.5 L Hct 34.4 L 30.0 L MCV 78 L 78 L MCH 25.9 L 24.8 L MCHC 33.1 31.7 L RDW 19.9 H 19.3 H Plt Count 255 214 Seg Neutrophils % 74.7 Lymphocytes % 15.7 Monocytes % 8.9 Eosinophils % 0.3 Basophils % 0.4 Absolute Neutrophils 11.5 H Absolute Lymphocytes 2.4 Absolute Monocytes 1.4 Absolute Eosinophils 0.0 Absolute Basophils 0.1 Blood Type A POSITIVE Antibody Screen NEGATIVE 05/28/16 07:30 WBC 12.9 H RBC 3.78 Hgb 9.7 L Hct 29.8 L MCV 79 L MCH 25.7 L MCHC 32.6 RDW 18.5 H Plt Count 178 Seg Neutrophils % Lymphocytes % Monocytes % Eosinophils % Basophils % Absolute Neutrophils Absolute Lymphocytes Absolute Monocytes Absolute Eosinophils Absolute Basophils Blood Type Antibody Screen Assessment and Plan(PN) - Assessment and Plan (1) PPH ( hemorrhage) Qualifiers: hemorrhage type: unspecified Qualified Code(s): O72.1 - Other immediate hemorrhage Is this a current diagnosis for this admission?: YesPlan: received 2 u prbc continue to monitor (2) Vaginal delivery Is this a current diagnosis for this admission?: YesPlan: d/c home tomorrow routine pp care - Time Spent with Patient Time with patient: Less than 15 minutes Critical Time spent with patient: Less than 15 minutes Medications reviewed and adjusted accordingly: Yes
[2016-05-29] MEDS: ACETAMINOPHEN WITH CODEINE #3 TABLET PO PRN ×2 (04:25→08:52)
[2016-05-29] MEDS: IBUPROFEN 800 MG TABLET PO SCH (06:29)
--- NOTE | 2016-05-29 08:52 | PDOC DISCHARGE SUMMARY ---
Final Diagnosis Discharge Date: 05/29/16 - Final Diagnosis (1) PPH ( hemorrhage) Is this a current diagnosis for this admission?: Yes (2) Vaginal delivery Is this a current diagnosis for this admission?: Yes (3) Acute blood loss anemia Is this a current diagnosis for this admission?: Yes Discharge Data - Discharge Medication Home Medications: Pnv with Ca,No.72/Iron/FA [Pnv Plus Multivit Tab] 1 tab PO DAILY Acetaminophen with Codeine [Tylenol #3 Tablet] 2 each PO Q4HP PRN #10 tablet 08/09 Docusate Sodium [Colace 100 mg Capsule] 100 mg PO BID #60 capsule 05/29/16 Ferrous Sulfate [Feosol 325 mg Tablet] 325 mg PO BID #60 tablet 05/29/16 Ibuprofen [Motrin 800 mg Tablet] 800 mg PO Q8 #60 tablet 05/29/16 Gestational Age: 41.0 Reason(s) for Admission: Induction of Labor Procedures: NST Intrapartum Procedure(s): Spontaneous Vaginal Delivery Complication(s): Laceration-Perineal Laceration-Degree: 1st - Data Baby 1 Male at 1 minute: 9 at 5 minutes: 9 Weight: 4.054 kg Home with Mother: Yes Complications: No - Diagnosis Test Laboratory: Temp Pulse Resp BP Pulse Ox 97.9 F 74 18 105/61 98 05/29/16 04:24 05/29/16 04:24 05/29/16 04:24 05/29/16 04:24 05/29/16 04:24 05/27/16 05/27/16 05/27/16 07:00 07:09 19:00 RBC 4.40 3.83 Hgb 11.4 L 9.5 L Hct 34.4 L 30.0 L Urine Opiates Screen NEGATIVE 05/28/16 07:30 RBC 3.78 Hgb 9.7 L Hct 29.8 L Urine Opiates Screen - Discharge information/Instructions Discharge Activity: Balance Activity w/Rest, Pelvic Rest Discharge Diet: Regular Disposition: HOME, SELF-CARE Follow up with: [facility] in: 4, Weeks
[2016-05-29 09:14] VITALS: BP 97/59
[2016-05-29] MEDS: DOCUSATE SODIUM 100 MG CAPSULE PO SCH (10:05)
[2016-05-29] MEDS: PRENATAL VITAMIN W-O CA NO5/FE FUMARATE/FA CAPSULE PO SCH (10:05)
[2016-05-29] MEDS: SENNOSIDES/DOCUSATE 8.6-50 MG 1 EACH TABLET PO SCH (10:06)
[2016-05-29] MEDS: FERROUS SULFATE 325 MG TABLET PO SCH (10:06)
== END 2016-05-29 12:15 | disposition home or self-care (01) | DRG 774 ==
LOC: LR 06:29 → 2S 16:50
PROVIDERS: ADMIT Obstetrics & Gynecology; ATTEND Obstetrics & Gynecology
PROC: 10E0XZZ Delivery of Products of Conception, External Approach (ICD-10-PCS; principal; 2016-05-27)
PROC: 10907ZC Drainage of Amniotic Fluid, Therapeutic from Products of Conception, Via Natural or Artificial Opening (ICD-10-PCS; 2016-05-27)
PROC: 0HQ9XZZ Repair Perineum Skin, External Approach (ICD-10-PCS; 2016-05-27)
PROC: 30233N1 Transfusion of Nonautologous Red Blood Cells into Peripheral Vein, Percutaneous Approach (ICD-10-PCS; 2016-05-27)
DX: O48.0 Post-term pregnancy (principal); O72.1 Other immediate postpartum hemorrhage; D62 Acute posthemorrhagic anemia; O69.81X0 Labor and delivery complicated by cord around neck, without compression, not applicable or unspecified; O71.82 Other specified trauma to perineum and vulva; O16.4 Unspecified maternal hypertension, complicating childbirth; O99.02 Anemia complicating childbirth; Z3A.41 41 weeks gestation of pregnancy; Z37.0 Single live birth
CPT/HCPCS: 36415; 36430; 80307; 81001; 85025; 85027; 86592; 86850; 86900; 86901; 86920; 88307; 90686; 90715; J2210; J2590; J3490; P9016